=== PATIENT | female | born 1935 | race Caucasian/White ===

== ENCOUNTER 2017-02-03 06:14 | Inpatient (IN) ==
[2017-02-03] MEDS ORDERED: Lidocaine -MPF 1% 2 ML VIAL ID ONE (06:34)
[2017-02-03] MEDS ORDERED: Albuterol 2.5 MG/3 ML NEBULIZER IH ONE (06:34)
[2017-02-03] MEDS ORDERED: CeFAZolin Pre 2,000 MG/100 ML 2,000 MG/100 ML BAG IVPB ONE (06:34)
[2017-02-03] MEDS ORDERED: Albuterol 2.5 MG/3 ML NEBULIZER ONE (06:37)
[2017-02-03] MEDS ORDERED: Ringers Solution, Lactated 1,000 ML IVC SCH (06:45)
--- NOTE | 2017-02-03 07:06 | Anesthesia Evaluation PreOp ---
Date of Encounter: 02/03/17 Time of Encounter: 07:04 - Past History Planned Operation: AAA Endograft Repair Cardiac History: Hyperlipidemia Pulmonary History: Former smoker (quit 3 weeksa ago, smoked for 60+ years), COPD HUMAN RESOURCE PROFESSIONAL History: TIA Other Medical History: Denies Any Significant HX Anesthesia History: No Prior Anesthetic Complications, Past Anesthesia ( hysterectomy) Alcohol Use: none Drug use: none Medications and Allergies Loratadine [Claritin] 10 mg PO DAILY 08/12/15 [History] Acetaminophen [Tylenol] 650 mg PO Q6HR PRN #20 tablet 08/14/16 [Rx] Budesonide/Formoterol 80/4.5 [Symbicort 80/4.5] 2 puff IH BIDR 30 Days [Rx] Aspirin Enteric Coated [Aspirin EC] 325 mg PO DAILY 02/03/17 [History] Allergies hydrocodone [From Vicodin] Allergy (Verified 02/03/17 06:57) Rash - Meds/Allergy Pre-op Review Medications Reviewed: Yes Allergies Reviewed: Yes Beta Blockers on Current Med List: No Anesthesia Results - Labs Laboratory Tests 01/27/17 01/27/17 01/27/17 12:20 12:20 12:20 WBC 4.3 Hgb 13.9 Hct 44.5 Plt Count 182 PT 11.0 INR 1.0 APTT 27.1 Sodium 141 Potassium 4.2 BUN 13 Creatinine 0.82 - Imaging EKG: report reviewed (08/12/2015 SR, possible LAE, RBBB) Additional studies: 01/22/2017 Stress LVEF>70% perfusion imaging was negative for ischemia or infarct resting ECG demonstrated SR with RBBB 01/23/2016 Echo LVEF 60-65% mild LV diastolic dysfunction no significant valvular dysfunction Anesthesia Exam O2 Sat Height 1.65 m Height 1.65 m Height 1.65 m Weight 55.338 kg Weight 55.338 kg Weight 55.338 kg O2 Sat by Pulse Oximetry 93 O2 Sat by Pulse Oximetry 93 Vital Signs Temp Pulse Resp BP Pulse Ox 97.6 F 67 18 120/68 93 02/03/17 06:41 02/03/17 06:41 02/03/17 06:41 02/03/17 06:41 02/03/17 06:41 Height: 5'5'' Weight: 122 lbs NPO (# of Hours): 8 Pain Scale: 0 Pain Scale Used: Numeric (1 - 10) - HEENT Pupil (Motor): EOMI Mallampati: II Teeth: Edentulous Denture Type: Upper: Complete, Lower: Complete Oral Opening: Greater than 3 - HUMAN RESOURCE PROFESSIONAL LOC: Oriented HUMAN RESOURCE PROFESSIONAL Motor: Normal RUE, Normal LUE, Normal RLE, Normal Face, Deficit LLE HUMAN RESOURCE PROFESSIONAL Sensory: Normal: RUE, LUE, RLE, LLE, Face - Cardiac Rhythm: Regular Murmur: None - Pulmonary Breath Sounds: bilateral Clear Respiratory Effort: Symmetrical Anesthesia Assess/Plan ASA Score: 3 Modified [place] Scale for Level of Consciousness: Cooperative, oriented, and tranquil Anesthetic Plan: General Monitoring Plan: A-Line Recovery Plan: PACU
[2017-02-03] MEDS ORDERED: Heparin 1,000 UNITS/500 mL NS 500 ML ONE (07:11)
[2017-02-03] MEDS ORDERED: *HR* FentaNYL (PF) 100 MCG/2 ML VIAL ONE ×2 (07:15→08:54)
[2017-02-03] MEDS ORDERED: *HR* Propofol 200 MG/20 ML VIAL IVP ONE (07:15)
[2017-02-03] MEDS ORDERED: Lidocaine -MPF 2% 2 ML VIAL ONE ×3 (07:18→10:46)
[2017-02-03] MEDS ORDERED: *HR* Rocuronium Bromide 50 MG/5 ML VIAL ONE (07:19)
--- NOTE | 2017-02-03 07:20 | History & Physical Report ---
Date of Encounter: 02/03/17 Time of Encounter: 07:19 24 Hour HP Update - Instructions Instructions: If the History and Physical is less than 30 days old and was completed prior to A.M. admission and or procedure and has NOT been updated on calendar day of procedure please complete this update prior to performing procedure. - Update Patient reports changes in Medical Condition: No Changes in examination, assessment, or condition: No Changes in Medication: No Preop tests/diagnostics Reviewed: Yes Surgery Remains Indicated: Yes Consent for Planned Operative Procedure(s) Verified: Yes - Pre-Operative Checklist Preoperative Checklist Indicated: Yes Prophylactic Antibiotic Ordered: Yes Home Medications Include Beta Nelson: No Beta Nelson Taken Today (Day of Surgery): No Beta Nelson Taken Yesterday (Day Prior to Surgery): No Is VTE Prophylaxis Indicated?: Yes
[2017-02-03] MEDS ORDERED: Heparin 1,000 UNITS/500 mL NS 1,000 ML ONE ×2 (07:21→10:21)
[2017-02-03] MEDS ORDERED: Lidocaine -MPF 4% 5 ML AMPUL ONE (07:46)
[2017-02-03] MEDS ORDERED: Dexamethasone 4 MG/ML VIAL ONE (08:39)
[2017-02-03] MEDS ORDERED: Ondansetron 4 MG/2 ML VIAL ONE (08:39)
[2017-02-03] MEDS ORDERED: *HR* Heparin 5,000 UNIT/ML VIAL ONE ×2 (08:59→10:00)
[2017-02-03] MEDS ORDERED: *HR* Phenylephrine 10 MG/ML VIAL ONE (09:04)
--- NOTE | 2017-02-03 09:14 | Anesthesia Procedures ---
Date of Encounter: 02/03/17 Time of Encounter: 08:00 Procedures: Anesthesia - Arterial Line Consent obtained: written consent Time out performed: Yes Sedation: Fentanyl (mcg): 50 Supplemental Oxygen via Nasal Cannula (L/min): 15 (FM) Local Anesthetic: Lidocaine 1% Amount of Anesthetic used (mls): 1 Size (Gauge): 20 Length (inches): 1 3/4 Technique Used: sterile prep, guide wire technique, direct puncture technique Post-Procedure: line taped into place, dry sterile dressing placed Patient tolerated procedure: well, no complications Complications: none Site: Brachial L Vitals: see anesthetic record
[2017-02-03] MEDS ORDERED: Ondansetron 4 MG/2 ML VIAL IVP PRN ×2 (09:15→12:25)
[2017-02-03] MEDS ORDERED: *HR* HYDROmorphone (PF) 1 MG/ML SYRINGE IVP PRN (09:15)
[2017-02-03] MEDS ORDERED: *HR* Labetalol 100 MG/20 ML MDV IVP PRN (09:15)
[2017-02-03] MEDS ORDERED: Esmolol 100 MG/10 ML VIAL IVP ONE (10:17)
[2017-02-03] MEDS ORDERED: Neostigmine Methylsulfate 3 MG/3 ML SYRINGE ONE (10:33)
--- NOTE | 2017-02-03 11:33 | Operative Note ---
Date of procedure: 02/03/17 Pre-op diagnosis: AAA Post-op diagnosis: same Procedure: EVAR with Medtronic IIs sytem-4 components utilized Bilateral open femoral exposure Aortgram with non selective catheterizations Complications: none Anesthesia: CARLOSA Surgeon: Duke Dhillon Co-Surgeon: Dwaine Saunders Estimated blood loss (cc): 150 Specimen: none Condition: stable Disposition: PACU Procedure in Detail: History Eri Gibbs is an 81-year-old white female with significant COPD who was found to have a 5.3 cm abdominal aortic aneurysm. This aneurysm has been followed for many years. The aneurysm is asymptomatic but has been increasing in size. Because of her fragile health and the increasing size it was recommended that the aneurysm be addressed electively rather than emergently. The patient had preoperative pulmonary function testing and are available in the medical record. Procedure After informed consent was obtained the patient was taken to the operating room. General endotracheal anesthesia was established under arterial line pressure monitoring. The abdomen and groins and upper thighs were sterilely prepped and draped. A timeout protocol was observed. A 2 team surgical approach was used for this procedure in order to decrease operative time and anesthetic time as well as did diminish blood loss. This also facilitated complex intraoperative decision making. Incisions were made at the femoral level bilaterally. Exposure was made of the common femoral artery. Control was obtained proximally and distally. An 18- gauge needle was then used and punctured the common femoral artery in a retrograde manner. A J-wire was inserted and this was followed by an 8 Mohawk sheath and dilator. The dilator was removed and the sheath was aspirated and flushed. 5000 units heparin was administered intravenously. A pigtail catheter was then inserted over a wire on the right side. A formal aortogram was obtained to make final measurements. A Medtronic IIs device was selected that was 23 mm in diameter. The dimensions of this main body device was 23 x 14 x 103 mm. This was placed via the right side and the pigtail catheter was then moved over to the left side. The main body was then deployed in an infrarenal location with suprarenal stent fixation. This was deployed to the point that the docking limb was opened. Then from the left side the graft was cannulated with wire. Appropriate confirmation was obtained to be sure that the wire was in the appropriate position. Then an angiogram via the left groin sheath was performed. A left limb was selected that was 16 x 10 x 124 mm. This was then deployed on the left side. The devices and removed and an 1 Mohawk sheath was placed. On the right side the attention was turned back to to the main body which was then completely deployed. It should be noted that on removal of the main body catheter there was resistance. This led to a greater than average force needed to be applied and cause some deformation of the left limb. This was recognized. In order to treat this however we judged it prudent to proceed with completing the right side. Therefore an angiogram was performed through the right sheath and measurements taken. The limb on the right side was then selected at a 16 x 10 x 93 mm. This was then deployed with preservation of the iliac bifurcation as was demonstrated earlier on the left side. With attention directed back to the left side. A Reliant balloon was placed into the area to gently inflate the graft limb and to secure it in position. Then a fourth and final component was placed in order to prevent what appeared to be a Type 3 endovascular leak. This was a 16 x 10 x 82 mm stent limb that was placed into the proximal aspect of the left component that was initially placed. With this done the Reliant balloon was placed and the stent graft was gently dilated and fully expanded throughout its body and iliac limbs. A completion aortogram was then obtained by placing the pigtail catheter back into the suprarenal aorta. This demonstrated patent renal arteries bilaterally. There was an accessory left renal artery that was recognized preoperatively but that needed to be covered in order to secure the position and so there is no flow noted there. The iliac bifurcations were also patent. However there was a persistent leak at the main body bifurcation area. Additional angiograms were obtained by inflating the Reliant balloon on one side of the limb and injecting retrograde contrast through the groin. This was done bilaterally. This appeared to be a Type 4 leak at the area of the bifurcation of the main body. It was judged at this time not to proceed with conversion to an AUI device device. This will be followed by outpatient CT scanning. The patient was hemodynamically stable throughout the procedure. At this point the wires and catheters were removed. The sheaths were removed from the femoral arteries. The common femoral artery puncture sites were then closed using 6-0 Prolene suture. After appropriate backbleeding and flushing pulsatile flow was then restored into the lower extremities. Excellent Doppler signals were identified as well as strongly palpable pulses. The wounds were then irrigated and hemostasis achieved. The wounds were closed in layers using absorbable suture. Dry sterile dressings were applied to the groin level. The patient was excreted in the operating room and taken to the recovery room in hemodynamically stable condition.
--- NOTE | 2017-02-03 11:54 | Anesthesia Evaluation Post Op ---
Date of Encounter: 02/03/17 Time of Encounter: 11:53 - Vital Signs Vital Signs: Vital Signs Temperature 97.6 F 02/03/17 06:41 Pulse Rate 67 02/03/17 06:41 Respiratory Rate 18 02/03/17 06:41 Blood Pressure 120/68 02/03/17 06:41 O2 Sat by Pulse Oximetry 93 02/03/17 06:41 Temperature 97.0 F L 02/03/17 11:40 Pulse Rate 66 02/03/17 11:40 Respiratory Rate 16 02/03/17 11:40 Blood Pressure 114/51 02/03/17 11:40 O2 Sat by Pulse Oximetry 98 02/03/17 11:40 - Lungs Lungs: Clear Ascult./Percussion - Cardiovascular Regular Rate - Mental Status Mental Status: Alert & Oriented, Answers Appropriately - Pain Pain Scale: 3 Pain Scale used: Numeric (1 - 10) - Nausea Vomiting Nausea Vomiting: Not Present - Hydration Hydration: Ice chips, Del Valle catheter - Discharge PostOp Status: Transfer Patient to floor
[2017-02-03] MEDS ORDERED: Naloxone 0.4 MG/ML INJ IVP PRN (12:25)
[2017-02-03] MEDS ORDERED: Acetaminophen 325 MG TABLET PO PRN (12:25)
[2017-02-03] MEDS ORDERED: *HR* Morphine 2 MG/ML SYRINGE ONE (12:30)
[2017-02-03] MEDS: *HR* Morphine 2 MG/ML SYRINGE IVP PRN ×3 (14:29→19:52)
--- NOTE | 2017-02-03 14:59 | Operative Note ---
Date of procedure: 02/03/17 Pre-op diagnosis: Abdominal aortic aneurysm Post-op diagnosis: same Procedure: 1. Introduction of catheter into the aorta via right common femoral artery. 2. Introduction of catheter into the aorta via left common femoral artery. 3. Right femoral vessel exposure for endograft placement. 4. Left femoral vessel exposure for endograft placement. 5. Medtronic Endurant modular bifurcated aortic endograft placement with 1 docking limb including radiologic supervision and interpretation. 6. Placement of left extension limb with radiologic supervision and interpretation. 7. Placement of left extension limb with radiologic supervision and interpretation. Anesthesia: GETA Surgeon: Dwaine Saunders Co-Surgeon: Duke Dhillon Estimated blood loss (cc): 150 Specimen: None Condition: stable Disposition: PACU Procedure in Detail: Indications: The patient is an 81 year old female with a history of chronic obstructive pulmonary disease and prior tobacco abuse who was found to have a 5.3cm infrarenal abdominal aortic aneurysm. Due to the increase in size of her aneurysm and her small stature, elective endograft repair was recommended to reduce her risk of rupture and . Procedure: The patient was identified, brought to the operating room and placed in the supine position on the operating room table. After induction of general endotracheal anesthesia, the patient was cleaned and draped in normal sterile fashion. A two surgeon approach was utilized for this procedure in order to minimize anesthetic time and the risks for complications due to the patients comorbid conditions, particularly her COPD. In addition, a two surgeon approach was used for intraoperative decision making given the complexity of her aneurysm, including irregular morphonlogy, a left accessory renal artery and small vessels that may require an iliac conduit. Oblique incisions were made over both groins sharply. Hemostasis was obtained with electrocautery. Using blunt and sharp and electrocautery dissection, the bilateral common, deep and superficial femoral arteries were dissected circumferentially and surrounded with Vesseloops. At this point, the patient received heparin intravenously and then bilateral femoral punctures with large- bore needles were performed. Bentson wires were advanced into the aorta under fluoroscopic view. Given the anatomy, the main body was selected to be the right side in this patient. The needles were exchanged for bilateral sheaths and a long Pigtail catheter was advanced over the right wire into the aortic arch. The wire was removed and an angiogram was then performed via a pigtail catheter for sizing of the graft. The wire was replaced with an amplatz wire. The catheter was removed and repositioned in the suprarenal aorta via the left femoral artery. The main body was inserted over the wire with the contralateral gate being in the contalateral position. An aortogram was then performed at the level of the renal arteries. The decision was made that the left accessory renal artery would need to be sacrificed in order to obtain adequate graft seal. The graft was positioned just inferior to the main renal arteries and the first 2 segments were deployed. Again an aortogram revealed adequate infrarenal placement. The graft was then further opened to the contralateral limb exposed. A final angiogram was performed confirming adequate infrarenal placement. The suprarenal stent was deployed in the usual fashion. The contralateral limb was then selected with a wire using a guiding catheter. Intragraft placement of the wire was confirmed by placing the pigtail and spinning it freely. An oblique view of the pelvis was performed with contrast to size the left extension limb. The sheath was removed and exchanged for the appropriate limb, which was advanced under fluoroscopic view and positioned. It was then expanded. The introducer and graft sheath were exchanged for a sheath. The remaining main body was deployed and the top cap was retrieved. The introducer sheath was removed, but resistance was encountered during removal. This led to torsion on the graft. The introducer released from the graft and then passed easily out of the vessel. It was noted at this time that the left extension limb had migrated distally and did not have adequate overlap. Due to the short length of the main body, it was determined that an extension limb on the right would be necessary to obtain sufficient seal on the right. An oblique view of the right pelvis was performed and the length of the extension limb on the right was determined. The sheath was exchanged for the limb and then the limb was deployed. The introducer and graft sheath were exchanged for a sheath. Upon completion of the graft docking limb extension, a Reliant balloon was then advanced into the graft proximal and distal endpoints as well as overlap were expanded with gentle pressure. A Flush completion angiogram revealed an endoleak arising from the left extension limb. At this time, it was determined that an additional limb would be required to bridge the gap in the left limb. The sheath was removed over the wire and the limb was advanced and deployed in the usual fashion. The introducer was retrieved and the sheath was replaced. The reliant balloon was then used to expand the graft. An angiogram revealed a small, but persistent endoleak at the main body bifurcation. Multiple selective view revealed that this appeared to be a Type IV endoleak. The decision was made to complete the case without further intervention ion the Type IV leak. Tension was applied to the Vessel loops in the groin. The sheaths and wires were then removed. The bilateral arteriotomies were repaired with a running 6-0 Prolene. Antibiotic irrigation was infused into the groin. The bilateral groins incisions were closed with 2-0 Vicryl, 3-0 Vicryl and 4-0 Vicryl. Sterile dressings were applied. The patient was then extubated and taken to the recovery room in stable condition. FINDINGS: Adequate juxtarenal positioning of the endograft with no evidence of endoleak. Device Sizes: 1. Main Body: 24 x 14 x 103mm 2. Left limb: 16 x 10 x 124mm 3. Right limb 16 x 10 x 93mm 4. Left extension limb 16 x 10 x 82mm
[2017-02-03] MEDS: ceFAZolin 2,000 MG in D5% in Water 100 ML IVPB SCH ×2 (17:59→23:21)
[2017-02-03] MEDS: Budesonide/Formoterol 80/4.5 MDI IH SCH (20:30)
[2017-02-04] MEDS: *HR* Morphine 2 MG/ML SYRINGE IVP PRN ×2 (03:52→08:23)
[2017-02-04 05:26] LABS: Basophils % 0.1 %; Eosinophils % 0.1 %; Hematocrit 35.4 % (35.3-44.9); Hemoglobin 11.1 g/dL (11.5-15.4); Immature Granulocytes % 0.4 % (0-4); Lymphocytes # 0.9 K/mcL (0.6-4.6); Lymphocytes % 10.5 %; Mean Corpuscular HGB Conc 31.4 g/dL (31.6-35.5); Mean Corpuscular Hemoglobin 30.1 pg (28.0-33.3); Mean Corpuscular Volume 95.9 fL (83.0-100.0); Mean Platelet Volume 10.7 fL (9.4-12.4); Monocytes # 0.8 K/mcL (0.0-1.3); Monocytes % 9.7 %; Neutrophils # 6.6 K/mcL (1.6-8.9); Platelet Count 111 K/mcL (140-400); Red Blood Count 3.69 M/mcL (3.82-4.97); Red Cell Distribution Width 13.6 % (11.5-14.5); Segmented Neutrophils % 79.2 %
[2017-02-04 05:52] LABS: BUN/Creatinine Ratio 15 (6-26); Blood Urea Nitrogen 13 mg/dL (7-20); Calcium 8.3 mg/dL (8.6-10.8); Carbon Dioxide 30 mEq/L (19-29); Chloride 102 mEq/L (98-109); Glucose 125 mg/dL (70-99); Osmolality,Calculated 286 (280-300); Potassium 4.3 mEq/L (3.5-4.5); Sodium 137 mEq/L (136-145); eGFR For African Americans > 60 (> 60); eGFR For Non-African Americans > 60 (> 60)
[2017-02-04] MEDS: Budesonide/Formoterol 80/4.5 MDI IH SCH ×2 (07:59→20:59)
[2017-02-04] MEDS: Aspirin Enteric Coated 325 MG Tablet PO SCH (07:59)
[2017-02-04] MEDS: ceFAZolin 2,000 MG in D5% in Water 100 ML IVPB SCH (07:59)
[2017-02-04] MEDS: Loratadine 10 MG TABLET PO SCH (07:59)
[2017-02-04] MEDS: *HR* OxyCODONE/APAP 5/325 TABLET PO PRN ×2 (07:59→20:46)
[2017-02-04] MEDS ORDERED: Bisacodyl 10 MG RECTAL SUPPOSITORY RC SCH ×2 (09:00→21:00)
--- NOTE | 2017-02-04 12:20 | Vascular/[facility] Progress Note ---
Date of Encounter: 02/04/17 Time of Encounter: 12:18 - Assessment and plan (1) AAA (abdominal aortic aneurysm) Current Visit: Yes Status: Chronic Patient is postoperative day #1 following endovascular abdominal aortic aneurysm repair. The abdominal pain the patient is expressing appears unrelated to the endovascular surgery. The patient has a benign abdominal exam. Pending patient's mobility and ability to tolerate oral intake will determine whether she may be discharged later today versus tomorrow. Her overall chronic and fragile ill health suggests that she will require an additional day of hospitalization and nursing care. Qualifiers: Presence of rupture: without rupture Qualified Code(s): I71.4 - Abdominal aortic aneurysm, without rupture (2) COPD (chronic obstructive pulmonary disease) Current Visit: Yes Status: Chronic The patient has chronic COPD secondary to care home tobacco abuse. Overall status is stable. She has no dramatic wheezing. O2 saturation on oxygen supplementation is in the high 90% range. Qualifiers: COPD type: unspecified COPD Qualified Code(s): J44.9 - Chronic obstructive pulmonary disease, unspecified (3) Tobacco abuse Current Visit: No Status: Chronic Chronic tobacco abuse history. - Subjective Interval history: Patient complains of abdominal pain which is chronic. This abdominal pain has been present for many years and is in the lower abdomen. This had preexisted prior to surgery. Patient also complains of nausea and had an episode of vomiting earlier this morning. Patient has a very poor appetite. Vital Signs, Last 4 Hours Temp Pulse Resp BP Pulse Ox 02/04/17 12:00 82 02/04/17 11:30 98.0 F 81 18 115/54 100 02/04/17 10:08 81 17 113/48 94 02/04/17 10:07 96 - Physical Examination General: Present: Conversant HEENT: Present: Atraumatic Neck: Absent: JVD Cardiac: Present: Reg Rate and Rhythm Lungs: Present: Decreased breath sounds Neuro: Present: Alert and responsive, No focal deficits noted, Cranial nerves grossly intact Vascular: Present: Surgical incisions (Dressings on the right groin incisions are clean and dry. There is no signs of hematoma.) Abdomen: Present: Soft, Non-tender, Other (Patient has active bowel sounds.) - VTE Documentation of Mechanical Device: Intermittent pneumatic compression device Results 02/04/17 05:02 02/04/17 05:02 Lab Results, Last 24 hours 02/04/17 02/04/17 05:02 05:02 WBC 8.3 Hgb 11.1 L Hct 35.4 Plt Count 111 L Sodium 137 Potassium 4.3 Chloride 102 Carbon Dioxide 30 H BUN 13 Creatinine 0.86 Glucose 125 H Calcium 8.3 L Consult Discharge Plan - Plan Referrals: NO,PCP [Non-Partnered Physician] - Shakira Costello MD [Primary Care Provider] - 02/06/17 1:40 pm Duke Dhillon MD [Partnered Physician] - 03/04/17 1:30 pm
[2017-02-04] MEDS ORDERED: Ringers Solution, Lactated 1,000 ML ONE (13:51)
[2017-02-04] MEDS: Ringers Solution, Lactated 1,000 ML IVC SCH (14:00)
[2017-02-05] MEDS: Budesonide/Formoterol 80/4.5 MDI IH SCH (08:16)
[2017-02-05] MEDS: Loratadine 10 MG TABLET PO SCH (08:58)
[2017-02-05] MEDS: Ringers Solution, Lactated 1,000 ML IVC SCH (08:58)
[2017-02-05] MEDS: Aspirin Enteric Coated 325 MG Tablet PO SCH (08:58)
[2017-02-05] MEDS: *HR* OxyCODONE/APAP 5/325 TABLET PO PRN (08:58)
--- NOTE | 2017-02-05 09:33 | Vascular/[facility] Progress Note ---
Date of Encounter: 02/05/17 Time of Encounter: 08:15 - Assessment and plan (1) AAA (abdominal aortic aneurysm) Current Visit: Yes Status: Chronic Patient is postoperative day #2 following endovascular abdominal aortic aneurysm repair The patient is feeling better from yesterday. She does not have nausea. She still has diminished appetite. We'll encourage patient to increase oral intake today and to become more active. The patient requires a walker for ambulatory assistance and her overall exercise tolerance is very low. Will request evaluation by rehabilitative services. I anticipate discharge to home later today with home health needs as indicated. 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 Overall status is stable. She has no dramatic wheezing. O2 saturation on oxygen supplementation is in the high 90% range. Qualifiers: COPD type: unspecified COPD Qualified Code(s): J44.9 - Chronic obstructive pulmonary disease, unspecified (3) Tobacco abuse Current Visit: No Status: Chronic Chronic tobacco abuse history. - Subjective Interval history: The patient is feeling better. She was able to sleep last night. She has less abdominal pain. The patient was up in the chair last night. Vital Signs, Last 4 Hours Temp Pulse Resp BP Pulse Ox 02/05/17 09:01 92 02/05/17 09:00 102 16 92 02/05/17 08:13 99.2 F 94 14 107/56 92 - Physical Examination General: Present: Conversant, No Apparent Distress Cardiac: Present: Reg Rate and Rhythm Lungs: Present: Decreased breath sounds Neuro: Present: Alert and responsive, No focal deficits noted Vascular: Present: Normal capillary refill. Absent: Cyanosis, Edema Abdomen: Present: Soft, Non-tender, Other (Active bowel sounds) Skin: Present: No rashes noted on visualized skin - VTE Documentation of Mechanical Device: Intermittent pneumatic compression device Results 02/04/17 05:02 02/04/17 05:02 Consult Discharge Plan - Plan Referrals: NO,PCP [Non-Partnered Physician] - Shakira Costello MD [Primary Care Provider] - 02/06/17 1:40 pm Duke Dhillon MD [Partnered Physician] - 03/04/17 1:30 pm
--- NOTE | 2017-02-05 11:16 | Physician Discharge Referral ---
Home Health/Hosp Referral Info Transfer to: Home Health Attending Provider: Dr Dhillon Provider in Charge Post Discharge: PCP - Diagnosis (1) AAA (abdominal aortic aneurysm) Priority: Primary Status: Chronic (2) COPD (chronic obstructive pulmonary disease) Priority: Secondary Status: Chronic (3) Tobacco abuse Priority: Secondary Status: Chronic - Respiratory Orders Oxygen / L per min Smoking Cessation: Smoking cessation has been advised. For more information, call the [place] Tobacco Quit Line at 7-358-OGWB-NOW. - Diet/Nutrition Diet/Nutrition Orders: Cardiac - Activity Activity Orders: Walker - Services Needed Following services are medically necessary services: Nursing, Home Health Aide, Physical Therapy, Occupational Therapy Other Treatments: O2 at 2 L per nasal cannula 27/04. - Transfer Medications Home Medications: Loratadine [Claritin] 10 mg PO DAILY 08/12/15 [History] Acetaminophen [Tylenol] 650 mg PO Q6HR PRN #20 tablet 08/14/16 [Rx] Budesonide/Formoterol 80/4.5 [Symbicort 80/4.5] 2 puff IH BIDR 30 Days [Rx] Aspirin Enteric Coated [Aspirin EC] 325 mg PO DAILY 02/03/17 [History] Allergies/Adverse Reactions: Allergies hydrocodone [From Vicodin] Allergy (Verified 02/03/17 06:57) Rash Certification: Further, I certify that my clinical findings support that this patient is homebound (i.e. absences from home require considerable and taxing effort and are for medical reasons or baptism services or infrequently or short duration when for other reasons) because: Homebound Reason: Patient requires assistance of a person or device to safely leave home, Post-surgery restriction and or conditions limit ability to leave home, Severity of cardiac or pulmonary status limits activity tolerance Attestation: My signature below is to certify that this patient is under my care and that I, or nurse practitioner, or a physician's senior sales assistant working with me, has a face-to -face encounter with this patient.
--- NOTE | 2017-02-05 11:20 | Discharge Summary ---
Date of Encounter: 02/05/17 Time of Encounter: 08:15 - Discharge Diagnosis (1) AAA (abdominal aortic aneurysm) Priority: Primary Status: Chronic Comments: Patient has expanding 5.3 cm abdominal aortic aneurysm. Qualifiers: Presence of rupture: without rupture Qualified Code(s): I71.4 - Abdominal aortic aneurysm, without rupture (2) COPD (chronic obstructive pulmonary disease) Priority: Secondary Status: Chronic Comments: Patient has severe lifestyle limiting COPD. During hospitalization patient is demonstrated multiple episodes of hypoxemia. Therefore she will require 2 L per nasal cannula at home. Qualifiers: COPD type: unspecified COPD Qualified Code(s): J44.9 - Chronic obstructive pulmonary disease, unspecified (3) Tobacco abuse Priority: Secondary Status: Chronic Comments: Patient has been advised to avoid all primary and secondary tobacco exposure. - Discharge Medications Home Medications: Loratadine [Claritin] 10 mg PO DAILY 08/12/15 [History] Acetaminophen [Tylenol] 650 mg PO Q6HR PRN #20 tablet 08/14/16 [Rx] Budesonide/Formoterol 80/4.5 [Symbicort 80/4.5] 2 puff IH BIDR 30 Days [Rx] Aspirin Enteric Coated [Aspirin EC] 325 mg PO DAILY 02/03/17 [History] Allergies/Adverse Reactions: Allergies hydrocodone [From Vicodin] Allergy (Verified 02/03/17 06:57) Rash Date of admission: 02/03/17 12:08 Primary care physician: Shakira Costello, Consults: 02/03/17 13:38 Consult to [employer] [CONS] Routine Reason for SW Consult: services prior to admission 02/04/17 16:59 Consult to Physical Therapy [CONS] Routine Comment: Evaluate, develop and implement POC Reason for Consult: s/p EVAR-Severe COPD-Assess for ADL 02/04/17 17:00 Consult to Occupational Therapy [CONS] Routine Comment: Evaluate, develop and implement POC Reason for Consult: s/p EVAR-severe COPD- assess for ADL's-anticipate d/c tomorrow 02/04/17 17:01 Consult to [employer] [CONS] Routine Reason for SW Consult: s/p EVAR-severe COPD-assess for expanded home health assistance anticipate d/c tomorrow Procedure(s) Performed: Endovascular repair of abdominal aortic aneurysm Discharging clinician: Duke Dhillon Anticipated date of discharge: 02/05/17 - Patient Status Disposition: Home Health Service Condition: Fair Functional capacity at discharge: uses cane/walker Overall status at discharge: patient is progressing back to baseline - Discharge Instructions Follow Up With: NO,PCP [Non-Partnered Physician] - Shakira Costello MD [Primary Care Provider] - 02/06/17 1:40 pm Duke Dhillon MD [Partnered Physician] - 03/04/17 1:30 pm Additional Instructions: Keep groin surgical incisions clean and dry. Do not get the surgical incisions wet until 5 days following surgery. Patient may ambulate when necessary however patient is to use a walker for ambulation. Patient will follow-up with Dr. Dhillon in approximately 4 weeks. Patient will need a follow-up CT scan as an outpatient Patient is to continue her usual home medications. She will be prescribed oxygen 2 L per nasal cannula because of persistent hypoxemia. - Diet and Activity Activity: ambulate only with your walker, as per physical therapy, wear oxygen at all times Diet: low fat, low cholesterol - Hospital Course Hospital course: Ms. Gibbs is a 81 year old female With severe COPD and an expanding abdominal aortic aneurysm. Because of her very frail nature was recommended that she undergo elective aneurysm repair. The patient came to the hospital and 2 days ago underwent bilateral open femoral artery exposures and placement of endovascular stent graft. Postoperatively the patient had abdominal pain which is a chronic process for her. This limited her walking and diet progression yesterday. Therefore she required an additional day in the hospital to facilitate further rehabilitative services and for intravenous fluid. The patient was improved on the morning of postoperative day #2. She was felt fit for discharge. It was noted that she has persistent hypoxemia which is not unexpected in light of her long and Again a history of COPD. Therefore the patient will require 2 L per nasal cannula upon discharge to home. She will also need home health services including physical therapy and occupational therapy and home health needs and visiting RN. Time spent discussing smoking cessation with patient: 3 to 10 minutes - Time Spent with Patient Total time spent providing and/or coordinating discharge services: Exam Vital Signs, Last 4 Hours Temp Pulse Resp BP Pulse Ox 02/05/17 09:36 92 02/05/17 09:01 92 02/05/17 09:00 102 16 92 05/04/17 08:30 93 02/05/17 08:13 99.2 F 94 14 107/56 92 General: Present: Conversant, No Apparent Distress Cardiac: Present: Reg Rate and Rhythm, Normal S1 and S2 Lungs: Present: Decreased breath sounds Neuro: Present: Alert and responsive, No focal deficits noted Abdomen: Present: Soft, Other (Active bowel sounds) Vascular: Present: Normal capillary refill. Absent: Cyanosis, Edema Skin: Present: No rashes noted on visualized skin - VTE Documentation of Mechanical Device: Intermittent pneumatic compression device
[2017-02-05 11:26] VITALS: BP 102/47
== END 2017-02-05 14:12 | disposition home health service (06) | DRG 269 ==
LOC: SAMDAY 06:14 → 2NNU 12:08
PROVIDERS: ADMIT Surgery Vascular Surgery; ATTEND Surgery Vascular Surgery

== ENCOUNTER 2017-08-12 09:46 | Inpatient (IN) ==
[2017-08-12 10:20] LABS: Bilirubin,Urine Negative (Negative); Blood,Urine Negative (Negative); Clarity,Urine Turbid (Clear); Color,Urine Yellow (Yellow); Glucose,Urine (UA) Normal (Normal); Ketones,Urine Negative (Negative); Leukocyte Esterase,Urine Small (Negative); Nitrite,Urine Negative (Negative); PH,Urine 7.5 pH Units (5.0-8.0); Protein,Urine 30 mg/dL (Neg-Trace); Urobilinogen,Urine Normal (Normal)
[2017-08-12 10:22] LABS: Bacteria,Urine None Seen per hpf (None-Few); Hyaline Casts,Urine None Seen per lpf (None-Few); Squamous Epithelial Cell,Urine Many per lpf (None-Few)
[2017-08-12] MEDS ORDERED: *HR* Morphine 2 MG/ML SYRINGE IVP ONE (10:31)
[2017-08-12] MEDS ORDERED: Ondansetron 4 MG/2 ML VIAL IVP ONE (10:31)
[2017-08-12] MEDS ORDERED: 0.9 % Sodium Chloride 1,000 ML IVC ONE (10:31)
--- NOTE | 2017-08-12 11:04 | Emergency Department Note ---
Disposition Clinical Impression: Leg edema, left Abdominal pain Qualifiers: Abdominal location: right lower quadrant Qualified Code(s): R10.31 - Right lower quadrant pain Sacral decubitus ulcer Qualifiers: Pressure ulcer stage: unspecified pressure ulcer stage Qualified Code(s): L89.159 - Pressure ulcer of sacral region, unspecified stage Disposition: Still a Patient Condition: Undetermined Referrals: Shakira Costello MD [Primary Care Provider] - Abdominal Pain HPI - General Chief Complaint: ED Abdominal Pain Stated Complaint: Abd/pelvic pain Time Seen by Provider: 08/12/17 10:04 Source: patient, family Mode of arrival: private vehicle Limitations: no limitations Nursing Notes Reviewed: Yes Vital Signs Reviewed: Yes - History of Present Illness Pt Subjective Complaint: abdominal pain, other (Sent here from Dr. Dhillon's office for further eval of pain and b/c CT from Thursday is abnormal.) Onset (ago): month(s) (since April) Consistency: Worsening Location: RLQ Pain Severity: severe Pain Scale: 10 Quality: aching, sharp Radiation: none Migration to: no migration Improves with: nothing Worsens with: nothing Context: history of similar episodes, other (AAA repair in February by Dr. Dhillon. Pain began in April. Wo for past 2 weeks.) Associated symptoms: Reports: constipation. Denies: nausea, vomiting, diarrhea , fever, chills, dysuria, hematemesis, hematochezia, melena, hematuria, anorexia , syncope Treatments prior to arrival: OTC medications, other (laxative and enema several times in the past month) - Related Data Home Medications Medication Instructions Recorded Confirmed Loratadine [Claritin] 10 mg PO DAILY 08/12/15 02/03/17 Aspirin Enteric Coated [Aspirin EC] 325 mg PO DAILY 02/03/17 02/03/17 Previous Rx's Medication Instructions Recorded Acetaminophen [Tylenol] 650 mg PO Q6HR PRN #20 tablet 08/14/16 Budesonide/Formoterol 80/4.5 2 puff IH BIDR 30 Days inhaler 08/14/16 [Symbicort 80/4.5] Allergies Allergy/AdvReac Type Severity Reaction Status Date / Time codeine Allergy See Verified 08/12/17 09:56 Comments Fish Containing Products Allergy Anaphylaxis Verified 08/12/17 09:56 fish derived Allergy Anaphylaxis Verified 08/12/17 09:56 fish oil Allergy Anaphylaxis Verified 08/12/17 09:56 hydrocodone [From Vicodin] Allergy Rash Verified 08/12/17 09:56 shellfish derived Allergy Anaphylaxis Verified 08/12/17 09:56 All systems ED: reviewed and negative except as stated. Review of Systems: As Per HPI Constitutional: Denies: fever, chills, weakness Cardiovascular: Reports: dyspnea on exertion (chronic), edema (swelling in left leg for past week, and now a little swelling in right foot). Denies: chest pain , palpitations, orthopnea, syncope Respiratory: Reports: dyspnea (" no worse than usual"). Denies: wheezes, hemoptysis, stridor Gastrointestinal: Reports: as per HPI, abdominal pain. Denies: nausea, vomiting , diarrhea, constipation Genitourinary: Denies: urgency, dysuria, frequency Musculoskeletal: Denies: back pain, neck pain, joint swelling Integumentary: Reports: other ("ulcer on bottom") Neurological: Denies: headache, weakness, numbness, paresthesias Hematological/Lymphatic: Denies: easy bleeding, easy bruising Abdominal Pain PMH - Past Medical History Medical history: Reports: aortic aneurysm (Abdominal, repaired in February), COPD, CVA Female Surgical History: Reports: hip replacement, hysterectomy, orthopedic, other, other Psychiatric history: Reports: no psych history - Social History Smoking status: Former smoker (Quit three weeks ago) Alcohol use: Reports: none Drug use: Reports: none Physical Exam - General Limitations: no limitations General appearance: alert, in no apparent distress - Head Head exam: atraumatic, normocephalic, normal inspection - Eye Eye exam: Present: normal appearance, PERRL. Absent: scleral icterus, conjunctival injection, periorbital swelling - ENT ENT exam: mucous membranes dry - Neck Neck exam: Present: normal inspection, full ROM, trachea midline. Absent: tenderness, meningismus - Chest Chest inspection: Present: normal inspection - Respiratory Respiratory exam: Present: wheezes (Mild end expiratory upper). Absent: respiratory distress, stridor, accessory muscle use, prolonged expiratory phase - Cardiovascular Cardiovascular exam: Present: regular rate, normal rhythm - Abdominal Exam Abdominal exam: Present: soft, tenderness, distention (Mild, lower), diminished bowel sounds, tenderness at [place]'s Point. Absent: guarding, rebound, rigidity, organomegaly, trauma, ascites, mass, pulsatile mass Abdominal tenderness: Present: RLQ, epigastrium, moderate - Extremities Exam Extremities exam: Present: normal capillary refill, pedal edema (Moderate to severe in the left, mild in the right), calf tenderness (Mild, left). Absent: joint swelling - Neurological Exam Neurological exam: Present: alert, oriented X3, CN II-XII intact - Psychiatric Psychiatric exam: Present: normal affect, normal mood - Skin Skin exam: Present: warm, dry Course Course Narrative: Patient was brought in by family for evaluation of increasing right lower quadrant abdominal pain. She has had this pain for months. She has had worsening constipation over the past two weeks such that she has required an enema every other day. She denies nausea, vomiting, fever or chills. She had an abdominal aortic aneurysm repaired this past February. She was scheduled for a follow-up CAT scan and subsequent visit with Dr. Dhillon. She had a CT done on Thursday and saw him in the office today. She states that after her visit she was told to come to the ER for further evaluation of her abnormal CAT scan and right lower quadrant abdominal pain. On exam, she is afebrile, nontoxic appearing, conversant and cooperative with the exam. She has tenderness in the right lower quadrant and in the epigastrium. She also has notable edema of the left lower leg and pitting edema in the left foot. She has slight edema in the right foot. She states that this swelling in the left leg is new 1 week. Labs , EKG, Doppler ultrasound and pain meds have been ordered. The case has been discussed with Dr. Gresham. He will take over care of this patient. Vital Signs Temperature 97.5 F L 08/12/17 09:52 Pulse Rate 86 08/12/17 09:52 Respiratory Rate 20 08/12/17 09:52 Blood Pressure 155/87 08/12/17 09:52 O2 Sat by Pulse Oximetry 95 08/12/17 09:52 Temperature 97.5 F L 08/12/17 09:52 Pulse Rate 86 08/12/17 09:52 Respiratory Rate 20 08/12/17 09:52 Blood Pressure 155/87 08/12/17 09:52 O2 Sat by Pulse Oximetry 95 08/12/17 09:52 Oxygen Delivery Oxygen Delivery Room Air Abdominal Pain - Lab Data Lab Results 08/12/17 Range/Units 10:10 Urine Color Yellow (Yellow) Urine Clarity Turbid A (Clear) Urine pH 7.5 (5.0-8.0) pH Units Ur Specific [place] 1.020 (1.010-1.025) Urine Protein 30 H (Neg-Trace) mg/dL Urine Glucose (UA) Normal (Normal) mg/dL Urine Ketones Negative (Negative) mg/dL Urine Blood Negative (Negative) Urine Nitrite Negative (Negative) Urine Bilirubin Negative (Negative) Urine Urobilinogen Normal (Normal) mg/dL Ur Leukocyte Esterase Small H (Negative) Urine Microscopic RBC 5-15 H (0-3) per hpf Urine Microscopic WBC 5-15 H (0-3) per hpf Ur Squamous Epith Cells Many H (None-Few) per lpf Urine Bacteria None Seen (None-Few) per hpf Hyaline Casts None Seen (None-Few) per lpf
[2017-08-12 11:06] LABS: Basophils % 0.1 %; Eosinophils % 0.1 %; Hematocrit 40.7 % (35.3-44.9); Hemoglobin 12.8 g/dL (11.5-15.4); Immature Granulocytes % 0.8 % (0-4); Lymphocytes # 0.8 K/mcL (0.6-4.6); Lymphocytes % 8.8 %; Mean Corpuscular HGB Conc 31.4 g/dL (31.6-35.5); Mean Corpuscular Hemoglobin 30.5 pg (28.0-33.3); Mean Corpuscular Volume 97.1 fL (83.0-100.0); Mean Platelet Volume 10.4 fL (9.4-12.4); Monocytes # 0.6 K/mcL (0.0-1.3); Monocytes % 6.8 %; Neutrophils # 7.3 K/mcL (1.6-8.9); Platelet Count 185 K/mcL (140-400); Red Blood Count 4.19 M/mcL (3.82-4.97); Red Cell Distribution Width 16.3 % (11.5-14.5); Segmented Neutrophils % 83.4 %
[2017-08-12 11:09] LABS: Prothrombin Time 11.1 Seconds (9.4-12.1)
[2017-08-12 11:12] LABS: Activated Partial Thrombo Time 23.9 Seconds (26.0-36.0)
[2017-08-12 11:18] LABS: Alanine Aminotransferase 21 Units/L (0-55); Albumin 2.8 g/dL (3.5-5.0); Albumin/Globulin Ratio 0.8 (1.1-2.2); Alkaline Phosphatase 108 Units/L (38-126); Aspartate Amino Transferase 21 Units/L (5-34); BUN/Creatinine Ratio 25 (6-26); Bilirubin,Direct 0.2 mg/dL (0.0-0.5); Bilirubin,Indirect 0.2 mg/dL (0.0-1.2); Bilirubin,Total 0.4 mg/dL (0.2-1.2); Blood Urea Nitrogen 19 mg/dL (7-20); Calcium 9.1 mg/dL (8.6-10.8); Carbon Dioxide 29 mEq/L (19-29); Chloride 104 mEq/L (98-109); Globulin 3.3 g/dL (2.4-3.5); Glucose 95 mg/dL (70-99); Lipase 492 Units/L (8-78); Osmolality,Calculated 294 (280-300); Potassium 3.8 mEq/L (3.5-4.5); Sodium 141 mEq/L (136-145); Total Protein 6.1 g/dL (6.0-8.3); eGFR For African Americans > 60 (> 60); eGFR For Non-African Americans > 60 (> 60)
[2017-08-12] MEDS ORDERED: *HR* HYDROmorphone (PF) 1 MG/ML SYRINGE IVP ONE (11:58)
--- NOTE | 2017-08-12 13:10 | Emergency Department Note ---
Disposition Clinical Impression: Leg edema, left, Cancer Abdominal pain Qualifiers: Abdominal location: right lower quadrant Qualified Code(s): R10.31 - Right lower quadrant pain Sacral decubitus ulcer Qualifiers: Pressure ulcer stage: unspecified pressure ulcer stage Qualified Code(s): L89.159 - Pressure ulcer of sacral region, unspecified stage Pancreatitis Qualifiers: Chronicity: acute Pancreatitis type: unspecified pancreatitis type Acute pancreatitis complication: unspecified Qualified Code(s): K85.90 - Acute pancreatitis without necrosis or infection, unspecified Disposition: Admitted As Inpatient Condition: Fair Referrals: Shakira Costello MD [Primary Care Provider] - Forms: ED Satisfaction Letter, Work/School Release Time of Disposition: 13:15 General Adult HPI - General Chief complaint: ED Abdominal Pain Stated complaint: Abd/pelvic pain Time Seen by Provider: 08/12/17 10:04 Source: patient, family Mode of arrival: ambulatory Limitations: no limitations Nursing Notes Reviewed: Yes Vital Signs Reviewed: Yes - History of Present Illness HPI Narrative: Patient seen in conjunction with the mid-level provider. Patient presents emergency room with generalized pain and complaining in the abdominal area. She is seen by her vascular surgeon within the last week and had CT angiography of the abdomen. There were concerning findings in the recommended her coming to the emergency room Onset (ago): day(s) Location: abdomen Radiation: non-radiation Pain Severity: severe Pain Scale: 10 Quality: stabbing, aching Consistency: constant Improves with: nothing Worsens with: nothing Associated symptoms: Reports: denies other symptoms Treatments Prior to Arrival: none - Related Data Home Medications Medication Instructions Recorded Confirmed Loratadine [Claritin] 10 mg PO DAILY 08/12/15 02/03/17 Tramadol HCl [Ultram] 50 mg PO DAILY PRN 08/12/17 08/12/17 Previous Rx's Medication Instructions Recorded Acetaminophen [Tylenol] 650 mg PO Q6HR PRN #20 tablet 08/14/16 Allergies Allergy/AdvReac Type Severity Reaction Status Date / Time codeine Allergy See Verified 08/12/17 09:56 Comments Fish Containing Products Allergy Anaphylaxis Verified 08/12/17 09:56 fish derived Allergy Anaphylaxis Verified 08/12/17 09:56 fish oil Allergy Anaphylaxis Verified 08/12/17 09:56 hydrocodone [From Vicodin] Allergy Rash Verified 08/12/17 09:56 shellfish derived Allergy Anaphylaxis Verified 08/12/17 09:56 All systems ED: reviewed and negative except as stated. Review of Systems: As Per HPI Constitutional: Denies: fever, chills, weakness Cardiovascular: Reports: dyspnea on exertion (chronic), edema (swelling in left leg for past week, and now a little swelling in right foot). Denies: chest pain , palpitations, orthopnea, syncope Respiratory: Reports: dyspnea (" no worse than usual"). Denies: wheezes, hemoptysis, stridor Gastrointestinal: Reports: as per HPI, abdominal pain. Denies: nausea, vomiting , diarrhea, constipation Genitourinary: Denies: urgency, dysuria, frequency Musculoskeletal: Denies: back pain, neck pain, joint swelling Integumentary: Reports: other ("ulcer on bottom") Neurological: Denies: headache, weakness, numbness, paresthesias Hematological/Lymphatic: Denies: easy bleeding, easy bruising Past Medical History - Past Medical History Attestation: Yes The following information was validated with the patient. Source: patient Medical history: Reports: aortic aneurysm (Abdominal, repaired in February), COPD, CVA Surgical history: Reports: orthopedic, other Psychiatric history: Reports: no psych history - Social History Smoking Status: Former smoker (Quit three weeks ago) Smokeless Tobacco Status: No Alcohol use: Reports: none Drug use: Reports: none Physical Exam - General Limitations: no limitations General appearance: alert, in no apparent distress - ENT ENT exam: normal exam, normal oropharynx, mucous membranes moist - Neck Neck exam: Present: normal inspection, full ROM, trachea midline - Chest Chest inspection: Present: normal inspection, symmetric chest wall rise - Respiratory Respiratory exam: Present: normal lung sounds bilaterally - Cardiovascular Cardiovascular exam: Present: regular rate, normal rhythm, normal heart sounds - Abdominal Exam Abdominal exam: Present: soft, tenderness, normal bowel sounds. Absent: distention, guarding, rebound, rigidity, Fritz's sign, Rovsing's sign, tenderness at McBurney's Point - Extremities Exam Extremities exam: Present: normal inspection, full ROM, normal capillary refill. Absent: tenderness - Back Exam Back exam: Present: normal inspection, full ROM. Absent: tenderness - Neurological Exam Neurological exam: Present: alert, oriented X3, CN II-XII intact, normal gait - Skin Skin exam: Present: warm, dry, intact, normal color Course Course Narrative: Patient seen and examined the time of arrival to my shift. Patient was signed out to me by the mid-level provider Lubna Kim. 82-year-old female sent to the emergency room today surgeon after having an Endo vascular procedure to her abdominal aorta. She had CT angiography findings that were concerning as well as abdominal pain. They recommended coming to our emergency room for evaluation. Currently patient is describing abdominal pain only. Denies fevers chills nausea vomiting diarrhea. Denies chest pain shortness of breath headache or vision change. Patient is otherwise resting in the bed at this time. Patient will have laboratory workup including lactic acid blood cultures CBC and chemistry. Patient was CT of the chest and abdomen secondary to the CT findings that were done several days ago that were concerning for metastatic disease and lesions in the abdomen and chest. Patient will most likely need initiation once workup is completed. We will see and treat pain symptoms here. Vital signs reviewed and otherwise unremarkable. Fluid hydration and be given as needed. Patient is potentially critically ill. - Reevaluation(s) Reevaluation #1: CT imaging is still pending. Patient's lipase is significantly elevated at 500. Could be part of her presentation with acute pancreatitis secondary to the intra-abdominal pathology. We will continue to monitor the pain until symptoms change. Time: 13:13 Reevaluation #2: Patient Molly have progressive metastatic disease in the lungs chest and abdomen. Also concerning for pancreatitis based on elevated lipase. Fluid hydration and nothing by mouth status as well as pain medication to be given. Patient was discussed with the hospitalist Dr. ramirez. Reviewed the patient's presentation symptoms medical history as well as intervention. No other concerns or issues this time. Patient will be admitted for pain control nothing by mouth status and consultation with oncology. Time: 13:56 Vital Signs Temperature 97.5 F L 08/12/17 09:52 Pulse Rate 86 08/12/17 09:52 Respiratory Rate 20 08/12/17 09:52 Blood Pressure 155/87 08/12/17 09:52 O2 Sat by Pulse Oximetry 95 08/12/17 09:52 Temperature 97.5 F L 08/12/17 09:52 Pulse Rate 98 08/12/17 13:08 Respiratory Rate 16 08/12/17 13:08 Blood Pressure 147/82 08/12/17 13:08 O2 Sat by Pulse Oximetry 97 08/12/17 13:08 Oxygen Delivery Oxygen Delivery Room Air Medical Decision Making - MDM Narrative Medical decision making narrative: Abdominal pain, pancreatitis, cancer, - Medical Records Medical records reviewed: Yes I reviewed the patient's medical records. - Lab Data Lab results reviewed: Yes I reviewed the patient's lab results. Result diagrams: 08/12/17 10:57 08/12/17 10:57 Lab Results 08/12/17 08/12/17 08/12/17 Range/Units 10:10 10:57 10:57 WBC 8.8 (4.3-11.1) K/mcL RBC 4.19 (3.82-4.97) M/mcL Hgb 12.8 (11.5-15.4) g/dL Hct 40.7 (35.3-44.9) % MCV 97.1 (83.0-100.0) fL MCH 30.5 (28.0-33.3) pg MCHC 31.4 L (31.6-35.5) g/dL RDW 16.3 H (11.5-14.5) % Plt Count 185 (140-400) K/mcL MPV 10.4 (9.4-12.4) fL Immature Gran % 0.8 (0-4) % Seg Neutrophils % 83.4 % Lymphocytes % 8.8 % Monocytes % 6.8 % Eosinophils % 0.1 % Basophils % 0.1 % Neutrophils # 7.3 (1.6-8.9) K/mcL Lymphocytes # 0.8 (0.6-4.6) K/mcL Monocytes # 0.6 (0.0-1.3) K/mcL Eosinophils # 0.0 (0.0-0.6) K/mcL Basophils # 0.0 (0.0-0.2) K/mcL PT 11.1 (9.4-12.1) Seconds INR 1.0 APTT 23.9 L (26.0-36.0) Seconds Sodium (136-145) mEq/L Potassium (3.5-4.5) mEq/L Chloride (98-109) mEq/L Carbon Dioxide (19-29) mEq/L BUN (7-20) mg/dL Creatinine (0.57-1.11) mg/dL Est GFR ( Amer) (> 60) Est GFR (Non-Af Amer) (> 60) BUN/Creatinine Ratio (6-26) Glucose (70-99) mg/dL Calculated Osmolality (280-300) Lactic Acid (0.5-2.2) mmol/L Calcium (8.6-10.8) mg/dL Total Bilirubin (0.2-1.2) mg/dL Direct Bilirubin (0.0-0.5) mg/dL Indirect Bilirubin (0.0-1.2) mg/dL AST (5-34) Units/L ALT (0-55) Units/L Alkaline Phosphatase (38-126) Units/L Serum Total Protein (6.0-8.3) g/dL Albumin (3.5-5.0) g/dL Globulin (2.4-3.5) g/dL Albumin/Globulin Ratio (1.1-2.2) Lipase (8-78) Units/L Urine Color Yellow (Yellow) Urine Clarity Turbid A (Clear) Urine pH 7.5 (5.0-8.0) pH Units Ur Specific Wallback 1.020 (1.010-1.025) Urine Protein 30 H (Neg-Trace) mg/dL Urine Glucose (UA) Normal (Normal) mg/dL Urine Ketones Negative (Negative) mg/dL Urine Blood Negative (Negative) Urine Nitrite Negative (Negative) Urine Bilirubin Negative (Negative) Urine Urobilinogen Normal (Normal) mg/dL Ur Leukocyte Esterase Small H (Negative) Urine Microscopic RBC 5-15 H (0-3) per hpf Urine Microscopic WBC 5-15 H (0-3) per hpf Ur Squamous Epith Cells Many H (None-Few) per lpf Urine Bacteria None Seen (None-Few) per hpf Hyaline Casts None Seen (None-Few) per lpf 08/12/17 08/12/17 Range/Units 10:57 10:57 WBC (4.3-11.1) K/mcL RBC (3.82-4.97) M/mcL Hgb (11.5-15.4) g/dL Hct (35.3-44.9) % MCV (83.0-100.0) fL MCH (28.0-33.3) pg MCHC (31.6-35.5) g/dL RDW (11.5-14.5) % Plt Count (140-400) K/mcL MPV (9.4-12.4) fL Immature Gran % (0-4) % Seg Neutrophils % % Lymphocytes % % Monocytes % % Eosinophils % % Basophils % % Neutrophils # (1.6-8.9) K/mcL Lymphocytes # (0.6-4.6) K/mcL Monocytes # (0.0-1.3) K/mcL Eosinophils # (0.0-0.6) K/mcL Basophils # (0.0-0.2) K/mcL PT (9.4-12.1) Seconds INR APTT (26.0-36.0) Seconds Sodium 141 (136-145) mEq/L Potassium 3.8 (3.5-4.5) mEq/L Chloride 104 (98-109) mEq/L Carbon Dioxide 29 (19-29) mEq/L BUN 19 (7-20) mg/dL Creatinine 0.77 (0.57-1.11) mg/dL Est GFR ( Amer) > 60 (> 60) Est GFR (Non-Af Amer) > 60 (> 60) BUN/Creatinine Ratio 25 (6-26) Glucose 95 (70-99) mg/dL Calculated Osmolality 294 (280-300) Lactic Acid 1.2 (0.5-2.2) mmol/L Calcium 9.1 (8.6-10.8) mg/dL Total Bilirubin 0.4 (0.2-1.2) mg/dL Direct Bilirubin 0.2 (0.0-0.5) mg/dL Indirect Bilirubin 0.2 (0.0-1.2) mg/dL AST 21 (5-34) Units/L ALT 21 (0-55) Units/L Alkaline Phosphatase 108 (38-126) Units/L Serum Total Protein 6.1 (6.0-8.3) g/dL Albumin 2.8 L (3.5-5.0) g/dL Globulin 3.3 (2.4-3.5) g/dL Albumin/Globulin Ratio 0.8 L (1.1-2.2) Lipase 492 H (8-78) Units/L Urine Color (Yellow) Urine Clarity (Clear) Urine pH (5.0-8.0) pH Units Ur Specific Wall[place] (1.010-1.025) Urine Protein (Neg-Trace) mg/dL Urine Glucose (UA) (Normal) mg/dL Urine Ketones (Negative) mg/dL Urine Blood (Negative) Urine Nitrite (Negative) Urine Bilirubin (Negative) Urine Urobilinogen (Normal) mg/dL Ur Leukocyte Esterase (Negative) Urine Microscopic RBC (0-3) per hpf Urine Microscopic WBC (0-3) per hpf Ur Squamous Epith Cells (None-Few) per lpf Urine Bacteria (None-Few) per hpf Hyaline Casts (None-Few) per lpf - Radiology Data Radiology results reviewed: Yes I reviewed the patient's radiology results. CT imaging of the chest and abdomen as well as previous CT angiography were reviewed in detail. - EKG Data EKG #1 EKG attestation: Yes I reviewed and interpreted this EKG. EKG results narrative: EKG reviewed by myself. EKG read as atrial fibrillation but there are no visible P waves and QRS complexes after them throughout the rhythm strip. Patient appears to have PVCs in the cardiac induction as well as PACs. Patient' s rate is 86. Intervals are otherwise in work. No acute signs of ST segment elevated sugars. EKG reviewed from previous from February 192016. Previous EKG shows sinus rhythm with no acute abnormalities. Patient most likely has arrhythmia secondary to discomfort and pain.
[2017-08-12] MEDS ORDERED: Naloxone 0.4 MG/ML INJ IVP PRN (17:22)
[2017-08-12] MEDS ORDERED: Acetaminophen 325 MG TABLET PO PRN (17:22)
[2017-08-12] MEDS ORDERED: Ondansetron 4 MG/2 ML VIAL IVP PRN (17:22)
[2017-08-12] MEDS ORDERED: traMADol 50 MG TABLET PO PRN (17:31)
[2017-08-12] MEDS: *HR* HYDROmorphone (PF) 1 MG/ML SYRINGE IVP PRN (17:54)
--- NOTE | 2017-08-12 17:58 | Internal Med History&Physical ---
<Bobby Stark - Last Filed: 08/12/17 18:42> Date of Encounter: 08/12/17 Time of Encounter: 17:30 Assessment and Plan (1) Pancreatitis Current visit: Yes Status: Acute RLQ pain r/t pancreatitis dx. Pt. reports pain intermittently for the past several weeks with worsening abdominal pain over the past week. Denies nausea and vomiting. Will provide supportive measures. IV 0.9 NS 100 mL/HR. NPO except ice chips. Will swab pts. mouth. Stair-step pain medications ordered for pain management. GI consult ordered. Qualifiers: Chronicity: acute Pancreatitis type: unspecified pancreatitis type Acute pancreatitis complication: unspecified Qualified Code(s): K85.90 - Acute pancreatitis without necrosis or infection, unspecified (2) Abdominal pain Current visit: Yes Status: Acute Acute abdominal pain of RLQ r/t pancreatitis. Lipase 492. NPO except ice chips for now. IV 0.9 NS @ 100 mL/HR. Stair-step pain medications for pain management. Qualifiers: Abdominal location: right lower quadrant Qualified Code(s): R10.31 - Right lower quadrant pain (3) Metastatic cancer Current visit: Yes Status: Acute CT imaging today shows mediastinal anterior cardiophrenic angle lymphadenopathy likely reflects metastatic disease. Mediastinal nodes encased and mildly narrows the left lobar pulmonary artery and left main stem bronchus. Numerous left lung pulmonary nodules which are predominantly pleural-based. Largest left upper lobe mass measures up to 1.9 cm. Overall findings are worrisome for metastatic disease. Hypoenhancing hepatic mass is not significantly changed in size and also consistent with metastatic disease. Numerous peritoneal based soft tissue nodules are consistent with metastatic disease. Oncology consult ordered and discussed w/Dr. Meyers w/recommendations for liver biopsy and orders for cancer antigens. Discussed w/pt. and family who are amenable. PT/ APTT in a.m. labs. (4) Sacral decubitus ulcer Current visit: Yes Status: Chronic Chronic sacral decubitus ulcer. Wound care consult. Daily wound care ordered. Orders to re-position pt. to avoid shear. Qualifiers: Pressure ulcer stage: unspecified pressure ulcer stage Qualified Code(s): L89.159 - Pressure ulcer of sacral region, unspecified stage (5) COPD (chronic obstructive pulmonary disease) Current visit: Yes Status: Chronic Hx of chronic COPD r/t tobacco abuse. Pt. reports quitting smoking three weeks ago. DuoNebs Q6 scheduled. Supplemental O2 w/titration and SpO2 monitoring. Tessalon 100 mg TID for cough. Monitor pt. and VS. Qualifiers: COPD type: unspecified COPD Qualified Code(s): J44.9 - Chronic obstructive pulmonary disease, unspecified (6) AAA (abdominal aortic aneurysm) Current visit: Yes Status: Resolved Hx of AAA. Pt. reports repair in February 2017. Stable. Qualifiers: Presence of rupture: without rupture Qualified Code(s): I71.4 - Abdominal aortic aneurysm, without rupture (7) DVT prophylaxis Current visit: Yes Status: Acute Heparin 5,000 units SQ Q8 for DVT prophylaxis. Internal Medicine - H&P: HPI Chief complaint: Abdominal pain Admitted From: Emergency Dept Plans for Post Hospital Care: Home History of present illness: Ms. Gibbs is a 82 year old female with medical hx of aortic aneurysm with repair done in February 2017, COPD, and CVA presents from the ED with chief complaint of abdominal pain of the right lower quadrant which she states has been occurring intermittently over the past several months that has become worse over the past week. Patient states she had AAA repair done in February 2017 and had a follow-up appointment today. Imaging today showed evidence of metastatic cancer in the lung, liver, and several lymph nodes which pt. and family were unaware of. Patient reports abdominal pain, dyspnea, and edema in bilateral LEs. Denies recent illness, fever, chills, nausea, vomiting, weakness , numbness, tingling, chest pain, palpitations, unusual bleeding, changes in vision, headache, lightheadedness, dizziness, pre-syncope, or syncope. Past Med Surg Social Fam HX - Past Medical History Source: patient, old records reviewed, obtained from family Medical history: aortic aneurysm, COPD, CVA Psychiatric history: no psych history - Past Surgical History Surgical History: orthopedic, other - Social History Smoking Status: Former smoker Smokeless Tobacco Status: No Alcohol use: none Drug use: none Current living situation: Home Activity Level: Independent ambulation Recent Out of Country Travel Within the Last 8 Weeks: No Exposure or Possible Exposure to Illness During Travel: No - Family History Father Race: Family Member Ethnicity: Non- Living Status: Hx Family Respiratory Disorders: Yes (Black lung) Internal Medicine - H&P: Meds Loratadine [Claritin] 10 mg PO DAILY 08/12/15 [History] Acetaminophen [Tylenol] 650 mg PO Q6HR PRN #20 tablet 08/14/16 [Rx] Tramadol HCl [Ultram] 50 mg PO DAILY PRN 08/12/17 [History] 3 Allergy/AdvReac Type Severity Reaction Status Date / Time codeine Allergy See Verified 08/12/17 09:56 Comments Fish Containing Products Allergy Anaphylaxis Verified 08/12/17 09:56 fish derived Allergy Anaphylaxis Verified 08/12/17 09:56 fish oil Allergy Anaphylaxis Verified 08/12/17 09:56 hydrocodone [From Vicodin] Allergy Rash Verified 08/12/17 09:56 shellfish derived Allergy Anaphylaxis Verified 08/12/17 09:56 All Systems PM: A 10-system review of systems was performed and is negative for pertinent findings except as documented above in the HPI. - Constitutional Constitutional: as per HPI, falls, no chills, no fever(s), no night sweats - EENT Eyes: no change in vision, no discharge, no pain, no photophobia Ears: no ear discharge, no ear pain, no tinnitus Nose, mouth and throat: no dysphagia, no nasal discharge, no neck pain, no sore throat - Breasts Breasts: as per HPI - Cardiovascular Cardiovascular ROS IM: dyspnea, dyspnea on exertion, no chest pain, no diaphoresis, no lightheadedness, no palpitations, no syncope - Respiratory Respiratory: as per HPI, cough, dyspnea, dyspnea on exertion - Gastrointestinal Gastrointestinal: as per HPI, abdominal pain (RLQ) - Genitourinary Genitourinary: no change in urinary stream, no dysuria, no flank pain, no hematuria Menstruation: as per HPI - Musculoskeletal Musculoskeletal ROS IM: no numbness, no tingling - Integumentary Integumentary IM: as per HPI, skin ulcer (Sacral decubitus ulcer) - Neurological Neurological ROS: no confusion, no convulsions, no focal weakness, no numbness, no tingling, no tremor(s) - Psychiatric Psychiatric: as per HPI - Endocrine Endocrine IM: as per HPI - Hematologic/Lymphatic Hematologic/Lymphatic: no easy bruising - Allergic/Immunologic Allergic/Immunologic: as per HPI - Constitutional Vitals: Temp Pulse Resp BP Pulse Ox 97.3 F L 85 18 153/75 99 08/12/17 16:46 08/12/17 16:46 08/12/17 16:46 08/12/17 16:46 08/12/17 16:46 General appearance: Present: cooperative, A&O X 3, pleasant, no acute distress, underweight, answers questions appropriately - Head Head exam: Present: atraumatic, normocephalic - Eye Eye exam: Present: PERRL, conjuntiva pink, sclera anicteric Pupils: Present: PERRL - ENT ENT exam: Present: normal exam, normal external ear exam - Neck Neck exam general surgery: Present: normal inspection, supple, trachea midline. Absent: lymphadenopathy - Respiratory Respiratory exam: Present: CTAB. Absent: accessory muscle use, rales, rhonchi, wheezes - Cardiovascular Cardiovascular exam: Present: RRR, +S1, +S2. Absent: diastolic murmur, gallop, rubs, systolic murmur - GI/Abdominal GI/Abdominal exam: Present: normal bowel sounds, soft, no peritoneal signs. Absent: distended, tenderness - Rectal Rectal exam: Present: deferred - Additional comments: exam deferred. - Extremities Exam Extremities exam: Present: warm, radial pulses palpable and symmetrical. Absent : calf tenderness, cyanotic, pedal edema - Back Exam Back exam: Present: normal inspection - Neurological Exam Neurological exam: Present: CN II-XII intact, oriented X3, no focal deficits. Absent: pronater drift, facial droop, speech deficit - Psychiatric Psychiatric exam: Present: normal affect, normal mood - Skin Skin exam: Present: dry, intact Additional comments: Decubitus ulcer on sacrum. Internal Med - H&P Results - Labs CBC & Chem 7: 08/12/17 10:57 08/12/17 10:57 - Diagnostic Studies Chest x-ray Additional comments: Impressions Chest X-Ray 08/12/17 10:43 IMPRESSION: Left upper lobe mass measuring 6.1 x 3 cm abutting the mediastinum suspicious for lung malignancy. CT of the chest with contrast is recommended for further evaluation. D/ / 08/12/2017 11:37:57 Alejandro Ha MD / tommie Interpreting Provider: Alejandro Ha MD CT scan - abdomen Additional comments: Impressions Chest X-Ray 08/12/17 10:43 IMPRESSION: Left upper lobe mass measuring 6.1 x 3 cm abutting the mediastinum suspicious for lung malignancy. CT of the chest with contrast is recommended for further evaluation. D/ / 08/12/2017 11:37:57 Alejandro Ha MD / tommie Interpreting Provider: Alejandro Ha MD Abdomen/Pelvis CT 08/12/17 11:27 IMPRESSION: Mediastinal and anterior cardiophrenic angle lymphadenopathy likely reflects metastatic disease. Mediastinal nodes encase and mildly narrow the left lobar pulmonary artery and left main stem bronchus. Numerous left lung pulmonary nodules, which are predominantly pleural-based. Largest left upper lobe mass measures up to 1.9 cm. Overall, findings are worrisome for metastatic disease. Hypoenhancing hepatic mass is not significantly changed in size and also consistent with metastatic disease. Numerous peritoneal based soft tissue nodules are consistent with metastatic disease. No intra-abdominal ascites. D/ / 08/12/2017 13:39:28 Patrice Mercer MD / krzysztof Interpreting Provider: Patrice Mercer MD CT scan - chest Additional comments: Impressions Chest CT 08/12/17 11:27 IMPRESSION: Mediastinal and anterior cardiophrenic angle lymphadenopathy likely reflects metastatic disease. Mediastinal nodes encase and mildly narrow the left lobar pulmonary artery and left main stem bronchus. Numerous left lung pulmonary nodules, which are predominantly pleural-based. Largest left upper lobe mass measures up to 1.9 cm. Overall, findings are worrisome for metastatic disease. Hypoenhancing hepatic mass is not significantly changed in size and also consistent with metastatic disease. Numerous peritoneal based soft tissue nodules are consistent with metastatic disease. No intra-abdominal ascites. D/ / 08/12/2017 13:39:28 Patrice Mercer MD / krzysztof Interpreting Provider: Patrice Mercer MD <Josesito Estrella P - Last Filed: 08/12/17 18:53> Date of Encounter: 08/12/17 Internal Medicine - H&P: HPI History of present illness: Ms. Gibbs is a 82 year old female All Systems PM: A 10-system review of systems was performed and is negative for pertinent findings except as documented above in the HPI. - Constitutional Vitals: Temp Pulse Resp BP Pulse Ox 97.3 F L 85 18 153/75 99 08/12/17 16:46 08/12/17 16:46 08/12/17 16:46 08/12/17 16:46 08/12/17 16:46 Internal Med - H&P Results - Labs CBC & Chem 7: 08/12/17 10:57 08/12/17 10:57 - Attending Attestation I examined this patient and my medical decision-making was reviewed with the Resident Physician/ [employer]. I agree with the documented findings, disposition and treatment plan as described except to the extent set forth below.
[2017-08-12] MEDS: 0.9 % Sodium Chloride 1,000 ML IVC SCH (19:16)
[2017-08-12] MEDS: Ipratropium/Albuterol Neb 3 ML IH SCH (21:11)
[2017-08-12] MEDS: Ketorolac 30 MG/ML VIAL IVP PRN (23:25)
[2017-08-13] MEDS: *HR* Heparin 5,000 UNIT/ML VIAL SQ SCH ×4 (00:43→23:31)
[2017-08-13] MEDS: Ipratropium/Albuterol Neb 3 ML IH SCH ×4 (03:52→22:24)
[2017-08-13] MEDS: 0.9 % Sodium Chloride 1,000 ML IVC SCH ×3 (05:20→21:39)
[2017-08-13 06:53] LABS: Basophils % 0.2 %; Eosinophils % 0.5 %; Hematocrit 35.9 % (35.3-44.9); Immature Granulocytes % 0.9 % (0-4); Lymphocytes # 0.6 K/mcL (0.6-4.6); Lymphocytes % 10.5 %; Mean Corpuscular HGB Conc 30.9 g/dL (31.6-35.5); Mean Corpuscular Hemoglobin 30.6 pg (28.0-33.3); Mean Corpuscular Volume 98.9 fL (83.0-100.0); Mean Platelet Volume 10.8 fL (9.4-12.4); Monocytes # 0.4 K/mcL (0.0-1.3); Monocytes % 6.9 %; Neutrophils # 4.5 K/mcL (1.6-8.9); Platelet Count 149 K/mcL (140-400); Red Blood Count 3.63 M/mcL (3.82-4.97); Red Cell Distribution Width 16.3 % (11.5-14.5)
[2017-08-13 06:58] LABS: Hemoglobin 11.1 g/dL (11.5-15.4); Prothrombin Time 10.9 Seconds (9.4-12.1)
[2017-08-13 07:01] LABS: Activated Partial Thrombo Time 26.5 Seconds (26.0-36.0); Hemoglobin A1C 5.7 %
[2017-08-13 07:10] LABS: Alanine Aminotransferase 17 Units/L (0-55); Albumin 2.4 g/dL (3.5-5.0); Albumin/Globulin Ratio 0.9 (1.1-2.2); Alkaline Phosphatase 96 Units/L (38-126); Aspartate Amino Transferase 20 Units/L (5-34); BUN/Creatinine Ratio 25 (6-26); Bilirubin,Total 0.4 mg/dL (0.2-1.2); Blood Urea Nitrogen 18 mg/dL (7-20); Calcium 8.4 mg/dL (8.6-10.8); Carbon Dioxide 29 mEq/L (19-29); Chloride 107 mEq/L (98-109); Chol/HDL Ratio 4.2 (0-4.9); Cholesterol 168 mg/dL (< 200); Globulin 2.7 g/dL (2.4-3.5); Glucose 71 mg/dL (70-99); HDL Cholesterol 40 mg/dL (40-59); LDL Cholesterol,Calculated 102 mg/dL (0-99); Magnesium 1.8 mg/dL (1.6-2.6); Osmolality,Calculated 296 (280-300); Potassium 3.8 mEq/L (3.5-4.5); Sodium 143 mEq/L (136-145); Total Protein 5.1 g/dL (6.0-8.3); Triglycerides 131 mg/dL (< 150); eGFR For African Americans > 60 (> 60); eGFR For Non-African Americans > 60 (> 60)
[2017-08-13] MEDS: Loratadine 10 MG TABLET PO SCH (09:14)
--- NOTE | 2017-08-13 09:15 | Oncology Inp Consult Note ---
Date of Encounter: 08/13/17 Time of Encounter: 09:00 Assessment and Plan (1) Metastatic cancer Problem details: CT scan suggestive of metastatic cancer Status: Acute Assessment and plan: - I explained to Ms. Gibbs that her recent CT chest/abdomen/pelvis revealed findings highly suggestive of a metastatic malignancy. She is aware that a biopsy needs to be performed to establish a diagnosis. She is agreeable to proceed with a CT scan guided biopsy of the liver lesion with this purpose. It' s still unclear which is the primary, but differential includes lung cancer, breast cancer. Plan: - CT guided liver biopsy later today. Please do not discharge patient until pathology results are available. - Please check serum LDH, uric acid, CA27-29, CA 19-9 if not done previously. Code(s): C79.9 - Secondary malignant neoplasm of unspecified site SNOMED Code( s): 009001100 (2) Pancreatitis Problem details: Pancreatitis Status: Acute Assessment and plan: - Being managed conservatively with IVF, NPO. Management as per primary team. Qualifiers: Chronicity: acute Pancreatitis type: unspecified pancreatitis type Acute pancreatitis complication: unspecified Qualified Code(s): K85.90 - Acute pancreatitis without necrosis or infection, unspecified Code(s): K85.90 - Acute pancreatitis without necrosis or infection, unspecified SNOMED Code(s): 90843979 (3) COPD (chronic obstructive pulmonary disease) Problem details: COPD Status: Chronic Assessment and plan: - Reports quitting smoking approximately 3 weeks ago. Currently on oxygen supplementation and nebs q 6 h, but overall looks stable. Qualifiers: COPD type: emphysema Emphysema type: unspecified Qualified Code(s): J43.9 - Emphysema, unspecified Code(s): J44.9 - Chronic obstructive pulmonary disease, unspecified SNOMED Code(s): 81238599 (4) AAA (abdominal aortic aneurysm) Problem details: Histor of AAA repair in February 2017 Status: Resolved Assessment and plan: - No acute surgical issues. Seems to have recovered well from AAA repair in February 2017. Qualifiers: Presence of rupture: without rupture Qualified Code(s): I71.4 - Abdominal aortic aneurysm, without rupture Code(s): I71.4 - Abdominal aortic aneurysm, without rupture SNOMED Code(s): 835471929 (5) Sacral decubitus ulcer Problem details: Sacral ulcer decubitus Status: Chronic Assessment and plan: I agree with wound care consult as recommended per primary team. Qualifiers: Pressure ulcer stage: unspecified pressure ulcer stage Qualified Code(s): L89.159 - Pressure ulcer of sacral region, unspecified stage Code(s): L89.159 - Pressure ulcer of sacral region, unspecified stage SNOMED Code(s): 387559709 - Data of Consult Requesting Physician: Jacinto Osborne MD Primary Care Provider: Shakira Costello, - Consult Narrative Reason for consult: CT scan suggestive of metastatic cancer. History of present illness: Ms. Gibbs is a 82 year old female with history of COPD, AAA s/p repair in February 2017, CVA referred to the ED from Dr. Dhillon's office for further evaluation of abdominal pain and due to imaging suggestive of metastatic malignancy. Ms. Gibbs was not accompanied by her family during the visit, but she reports that her daughter was here yesterday and was informed about the CT scan abnormalities , and the recommendations to perform a liver biopsy. She is currently NPO and is awaiting for completion of the IR guided liver biopsy. She denies any history of bleeding disorder or recent bleeding events. She reports having colonoscopy and mammograms in the past, several years ago. She reports that her abdominal pain has been present for the last three months, gradually getting worse, associated with poor appetite, described as sharp, no radiated, and not affected for positional changes. She reports not having a bowel movement for a while. She reports living by herself, but with her 3 daughters and 2 sons living close by. 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 Reports a long history of smoking, but quit approximately 3 weeks ago ( " I just decided to quit". She reports being independent with ADLs at home, although getting support with home aids, and home food delivery. Past Med Surg Social Fam HX - Past Medical History Medical history: aortic aneurysm, COPD, CVA Psychiatric history: no psych history - Past Surgical History Surgical History: orthopedic, other - Social History Smoking Status: Former smoker Smokeless Tobacco Status: No Alcohol use: none Drug use: none - Family History Father Race: Family Member Ethnicity: Non- Living Status: Hx Family Respiratory Disorders: Yes (Black lung) Medications and Allergies Loratadine [Claritin] 10 mg PO DAILY 08/12/15 [History] Acetaminophen [Tylenol] 650 mg PO Q6HR PRN #20 tablet 08/14/16 [Rx] Tramadol HCl [Ultram] 50 mg PO DAILY PRN 08/12/17 [History] 3 Allergy/AdvReac Type Severity Reaction Status Date / Time codeine Allergy See Verified 08/12/17 09:56 Comments Fish Containing Products Allergy Anaphylaxis Verified 08/12/17 09:56 fish derived Allergy Anaphylaxis Verified 08/12/17 09:56 fish oil Allergy Anaphylaxis Verified 08/12/17 09:56 hydrocodone [From Vicodin] Allergy Rash Verified 08/12/17 09:56 shellfish derived Allergy Anaphylaxis Verified 08/12/17 09:56 Constitutional: Present: anorexia, fatigue. Absent: fever(s) Breasts: Present: skin changes. Absent: swelling Cardiovascular: Absent: chest pain with activity, diaphoresis Respiratory: Present: cough Gastrointestinal: Present: abdominal pain, constipation. Absent: dysphagia Musculoskeletal: Absent: arthralgias, neck pain Integumentary: Absent: alopecia, bleeding lesions Neurological: Absent: behavioral changes, headache(s) Psychiatric: Absent: auditory hallucinations, hallucinations Endocrine: Present: fatigue Hematologic/Lymphatic: Present: as per HPI Oncology - Exam - Constitutional Vitals: Temp Pulse Resp BP Pulse Ox 97.5 F L 115 18 124/73 96 08/13/17 07:07 08/13/17 07:07 08/13/17 07:07 08/13/17 07:07 08/13/17 07:07 - Head Head exam: Present: normal inspection, normocephalic - Eye Eye exam: Present: normal appearance. Absent: conjuntiva pink - ENT ENT exam: Present: normal exam - Neck Neck exam: Present: normal inspection. Absent: lymphadenopathy, meningismus, tenderness - Respiratory Respiratory exam: Present: CTAB, prolonged expiratory phase - Cardiovascular Cardiovascular exam: Present: RRR. Absent: systolic murmur - GI/Abdominal GI/Abdominal exam: Present: normal bowel sounds. Absent: organomegaly, pulsatile mass - Extremities Exam Extremities exam: Present: normal inspection. Absent: pedal edema, tenderness - Back Exam Back exam: Present: normal inspection - Neurological Exam Neurological exam: Present: altered, oriented X3 - Psychiatric Psychiatric exam: Present: normal affect, normal mood - Skin Skin exam: Present: normal color Oncology - Results Labs: Short CBC 08/13/17 Range/Units 05:39 WBC 5.5 (4.3-11.1) K/mcL Hgb 11.1 L D (11.5-15.4) g/dL Hct 35.9 (35.3-44.9) % Plt Count 149 (140-400) K/mcL Neutrophils # 4.5 (1.6-8.9) K/mcL BMP 08/13/17 05:39 Sodium 143 Potassium 3.8 Chloride 107 Carbon Dioxide 29 BUN 18 Creatinine 0.71 Glucose 71 Calcium 8.4 L Liver Function 08/13/17 Range/Units 05:39 Total Bilirubin 0.4 (0.2-1.2) mg/dL AST 20 (5-34) Units/L ALT 17 (0-55) Units/L Alkaline Phosphatase 96 (38-126) Units/L Albumin 2.4 L (3.5-5.0) g/dL Consult Discharge Plan - Plan Referrals: Shakira Costello MD [Primary Care Provider] -
[2017-08-13] MEDS: *HR* HYDROmorphone (PF) 1 MG/ML SYRINGE IVP PRN ×2 (10:01→19:09)
--- NOTE | 2017-08-13 10:31 | Gastroenterology Consult Note ---
<Caroline Llanos - Last Filed: 08/13/17 11:11> Date of Encounter: 08/13/17 Time of Encounter: 09:45 - Assessment and plan (1) Abdominal pain Current Visit: Yes Status: Acute Assessment and plan: Pt has evidence of metastatic cancer, primary unknown at this time. Pain is likely resulting from such. She does not appear to have obstruction as LFTs are WNL. Will await biopsy results. Qualifiers: Abdominal location: right lower quadrant Qualified Code(s): R10.31 - Right lower quadrant pain (2) Metastatic cancer Current Visit: Yes Status: Acute Assessment and plan: Primary unknown. Oncology is following, scheduled for CT guided liver biopsy today. - Time Spent With Patient Total time spent is greater than 50% in coordination of care (as documented) at patient's floor/unit and/or counseling patient: GI History of Present Illness - Data of Consult Patient: new to practice Consult date: 08/13/17 Requesting Physician: Jacinto Osborne MD - Consult Narrative Reason for consult: abdominal pain History of present illness: Ms. Gibbs is a 82 year old female with a PMhx of endovascular aortic aneurysm repair February 2017, COPD, and CVA. She presented for follow up of AAA repair to Dr Dhillon and CT showed evidence of metastatic cancer in the lung, liver, and several lymph nodes. She reports abdominal pain intermittent since 03/21 but worse the past week. She states pain is worse to RLQ area. She also reports weight loss of 30 pounds despite unchange in appetite or diet. She denies diarrhea but states she has constipation. Last BM 2 days ago with enema. She states constipation has been ongoing since August of 2016. She denies any bloody or tarry BMs. She states pain is unimproved with defacation. She denies dysphagia, nausea or vomiting. She does complain of some dyspnea and lower extremity edema. CT abdomen and chest showed .Mediastinal and anterior cardiophrenic angle lymphadenopathy, Mediastinal nodes encase and mildly narrow the left lobar pulmonary artery and left main stem bronchus, Numerous left lung pulmonary nodules, which are predominantly pleural-based. Largest left upper lobe mass measures up to 1.9 cm. Overall, findings are worrisome for metastatic disease. Hypoenhancing hepatic mass is not significantly changed in size and also consistent with metastatic disease. Numerous peritoneal based soft tissue nodules are consistent with metastatic disease. No intra-abdominal ascites. Labs showed Hgb 11.1, WBC 5.5, INR 1.0, T bili 0.4, AST 20 ALT 17, Lipase 492, CEA 7.0, CA 124. Colonoscopy: 2010 hyperplastic polyp EGD: denies NSAIDS/ASA: Anticoagulants: heparin Past Med Surg Social Fam HX - Past Medical History Medical history: aortic aneurysm, COPD, CVA Psychiatric history: no psych history - Past Surgical History Surgical History: orthopedic, other - Social History Smoking Status: Former smoker Smokeless Tobacco Status: No Alcohol use: none Drug use: none - Family History Father Race: Family Member Ethnicity: Non- Living Status: Hx Family Respiratory Disorders: Yes (Black lung) Review of Systems: GI: as per [facility] GENERAL: denies fever, or chills EYES: denies yellow discoloration ENT: denies pain with swallowing or difficulty swallowing CARDIO: denies chest pain, palpitations RESP:Shortness of breath with exertion : denies change in color of urine NEURO: weakness HEME: Denies any bruising MS: chronic joint pain, joint swelling or back pain. DERM: denies rash or itching, decubitus ulcer to coccyx PSYCH: Denies history of anxiety or depression - Constitutional Vitals: Temp Pulse Resp BP Pulse Ox 97.5 F L 115 18 124/73 96 08/13/17 09:29 08/13/17 09:29 08/13/17 09:29 08/13/17 09:29 08/13/17 09:29 General appearance: Present: cooperative, A&O X 3, no acute distress, answers questions appropriately Exam: CONSTITUTIONAL:~alert, no acute distress.~HEAD:~normocephalic.~EYES:~no jaundice.~NECK:~no obvious swelling.~HEART:~regular rate and rhythm, no murmurs. ~LUNGS:~fair air entry bilaterally.~ABDOMEN:~non distended, soft, tender right upper and lower quadrants, nodular masses palpable to midline abdomen, ~RECTAL EXAM:~Deferred.~EXTREMITIES:~no clubbing, cyanosis, trace BLE edema.~SKIN:~no stigmata of chronic liver disease, pallor noted.~NEUROLOGIC:~no obvious focal defect.~~~~ Results - Labs CBC & Chem 7: 08/13/17 05:39 08/13/17 05:39 Labs: Last Result Calcium 8.4 mg/dL (8.6-10.8) L 08/13/17 05:39 Triglycerides 131 mg/dL (< 150) 08/13/17 05:39 Entire Visit Hgb 11.1 g/dL (11.5-15.4) L D 08/13/17 05:39 Hct 35.9 % (35.3-44.9) 08/13/17 05:39 PT 10.9 Seconds (9.4-12.1) 08/13/17 05:39 Total Bilirubin 0.4 mg/dL (0.2-1.2) 08/13/17 05:39 AST 20 Units/L (5-34) 08/13/17 05:39 ALT 17 Units/L (0-55) 08/13/17 05:39 Lipase 492 Units/L (8-78) H 08/12/17 10:57 Carcinoembryonic Ag 7.0 ng/mL (0-5.0) H 08/12/17 18:42 CA 125 Ag Serial Mntr 124 U/mL (0-35) H 08/12/17 18:42 - ABG ABG results: PT/INR, D-dimer PT 10.9 Seconds (9.4-12.1) 08/13/17 05:39 Consult Discharge Plan - Plan Referrals: Shakira Costello MD [Primary Care Provider] - <Ramo Kirkpatrick - Last Filed: 08/13/17 15:36> Date of Encounter: 08/13/17 Time of Encounter: 14:30 - Time Spent With Patient Total time spent is greater than 50% in coordination of care (as documented) at patient's floor/unit and/or counseling patient: GI History of Present Illness - Data of Consult Requesting Physician: Jacinto Osborne MD - Consult Narrative History of present illness: Ms. Gibbs is a 82 year old female - Constitutional Vitals: Temp Pulse Resp BP Pulse Ox 97.7 F 95 18 126/71 97 08/13/17 11:51 08/13/17 11:51 08/13/17 11:51 08/13/17 11:51 08/13/17 11:51 Results - Labs CBC & Chem 7: 08/13/17 05:39 08/13/17 05:39 Labs: Last Result Calcium 8.4 mg/dL (8.6-10.8) L 08/13/17 05:39 Triglycerides 131 mg/dL (< 150) 08/13/17 05:39 Entire Visit Hgb 11.1 g/dL (11.5-15.4) L D 08/13/17 05:39 Hct 35.9 % (35.3-44.9) 08/13/17 05:39 PT 10.9 Seconds (9.4-12.1) 08/13/17 05:39 Total Bilirubin 0.4 mg/dL (0.2-1.2) 08/13/17 05:39 AST 20 Units/L (5-34) 08/13/17 05:39 ALT 17 Units/L (0-55) 08/13/17 05:39 Lipase 492 Units/L (8-78) H 08/12/17 10:57 Carcinoembryonic Ag 7.0 ng/mL (0-5.0) H 08/12/17 18:42 CA 125 Ag Serial Mntr 124 U/mL (0-35) H 08/12/17 18:42 - ABG ABG results: PT/INR, D-dimer PT 10.9 Seconds (9.4-12.1) 08/13/17 05:39 - Attending Attestation I examined this patient and my medical decision-making was reviewed with the Resident Physician. I agree with the documented findings, disposition and treatment plan as described except to the extent set forth below. Pt with metastatic cancer with unknow primary. RLQ pain. Will wait on liver mets biopsies
[2017-08-13] MEDS: Ketorolac 30 MG/ML VIAL IVP PRN (14:33)
--- NOTE | 2017-08-13 15:43 | Internal Med Progress Note ---
Date of Encounter: 08/13/17 Time of Encounter: 15:41 - Assessment and plan (1) Pancreatitis Current Visit: Yes Status: Acute Qualifiers: Chronicity: acute Pancreatitis type: unspecified pancreatitis type Acute pancreatitis complication: unspecified Qualified Code(s): K85.90 - Acute pancreatitis without necrosis or infection, unspecified (2) Metastatic cancer Current Visit: Yes Status: Acute (3) Sacral decubitus ulcer Current Visit: Yes Status: Chronic Qualifiers: Pressure ulcer stage: unspecified pressure ulcer stage Qualified Code(s): L89.159 - Pressure ulcer of sacral region, unspecified stage (4) AAA (abdominal aortic aneurysm) Current Visit: Yes Status: Resolved Qualifiers: Presence of rupture: without rupture Qualified Code(s): I71.4 - Abdominal aortic aneurysm, without rupture (5) COPD (chronic obstructive pulmonary disease) Current Visit: Yes Status: Chronic Qualifiers: COPD type: emphysema Emphysema type: unspecified Qualified Code(s): J43.9 - Emphysema, unspecified - Subjective Interval history: Patient was admitted yesterday for pancreatitis. Incidental finding of metastatic cancer in abdomen. Discussed the case with oncology this morning and apparently we need liver biopsy. Liver biopsy cannot be done today as patient is on subcutaneous Lovenox and therefore Lovenox will be on hold and it will be done tomorrow. Patient also has sacral decubitus ulcer and COPD. She thinks her abdominal pain is better. On examination her belly is soft but is still left upper quadrant tenderness. The amylase lipase CBC CMP ordered. Patient family is available and discuss the issues with and provided all the answers - Constitutional Vitals: Temp Pulse Resp BP Pulse Ox 97.7 F 95 18 126/71 97 08/13/17 11:51 08/13/17 11:51 08/13/17 11:51 08/13/17 11:51 08/13/17 11:51 General appearance: Present: cooperative, A&O X 3, pleasant, no acute distress, underweight, answers questions appropriately - Head Head exam: Present: atraumatic, normocephalic - Eye Eye exam: Present: PERRL, conjuntiva pink, sclera anicteric Pupils: Present: PERRL - Neck Neck exam general surgery: Present: supple, trachea midline. Absent: lymphadenopathy - Respiratory Respiratory exam: Present: CTAB. Absent: accessory muscle use, rales, rhonchi, wheezes - Cardiovascular Cardiovascular exam: Present: RRR, +S1, +S2. Absent: diastolic murmur, gallop, rubs, systolic murmur - GI/Abdominal GI/Abdominal exam: Present: normal bowel sounds, soft, tenderness, no peritoneal signs. Absent: distended - Extremities Exam Extremities exam: Present: warm, radial pulses palpable and symmetrical. Absent : calf tenderness, cyanotic, pedal edema - Neurological Exam Neurological exam: Present: CN II-XII intact, oriented X3, no focal deficits. Absent: pronater drift, facial droop, speech deficit - Skin Skin exam: Present: dry, intact Internal Medicine: Result - Labs CBC & Chem 7: 08/13/17 05:39 08/13/17 05:39 Labs: Short CBC 08/13/17 Range/Units 05:39 WBC 5.5 (4.3-11.1) K/mcL Hgb 11.1 L D (11.5-15.4) g/dL Hct 35.9 (35.3-44.9) % Plt Count 149 (140-400) K/mcL Neutrophils # 4.5 (1.6-8.9) K/mcL BMP 08/13/17 05:39 Sodium 143 Potassium 3.8 Chloride 107 Carbon Dioxide 29 BUN 18 Creatinine 0.71 Glucose 71 Calcium 8.4 L Liver Function 08/13/17 Range/Units 05:39 Total Bilirubin 0.4 (0.2-1.2) mg/dL AST 20 (5-34) Units/L ALT 17 (0-55) Units/L Alkaline Phosphatase 96 (38-126) Units/L Albumin 2.4 L (3.5-5.0) g/dL - ABG Interpretation ABG results: PT/INR, D-dimer PT 10.9 Seconds (9.4-12.1) 08/13/17 05:39 Consult Discharge Plan - Plan Referrals: Shakira Costello MD [Primary Care Provider] -
[2017-08-13] MEDS: Miconazole w/zinc oxide&karaya 92 APPL/92 GM TUBE TP SCH ×2 (16:18→21:15)
--- NOTE | 2017-08-13 17:58 | Electrocardiograph Report ---
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
--- NOTE | 2017-08-13 18:24 | Electrocardiograph Report ---
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
[2017-08-14] MEDS: *HR* HYDROmorphone (PF) 1 MG/ML SYRINGE IVP PRN ×5 (01:07→22:32)
[2017-08-14 03:37] LABS: Basophils % 0.2 %; Eosinophils % 0.2 %; Hematocrit 33.8 % (35.3-44.9); Hemoglobin 10.4 g/dL (11.5-15.4); Immature Granulocytes % 1.1 % (0-4); Lymphocytes # 0.3 K/mcL (0.6-4.6); Lymphocytes % 5.5 %; Mean Corpuscular HGB Conc 30.8 g/dL (31.6-35.5); Mean Corpuscular Hemoglobin 30.5 pg (28.0-33.3); Mean Corpuscular Volume 99.1 fL (83.0-100.0); Mean Platelet Volume 10.8 fL (9.4-12.4); Monocytes # 0.4 K/mcL (0.0-1.3); Neutrophils # 5.3 K/mcL (1.6-8.9); Platelet Count 159 K/mcL (140-400); Red Blood Count 3.41 M/mcL (3.82-4.97)
[2017-08-14] MEDS: Ipratropium/Albuterol Neb 3 ML IH SCH ×4 (03:48→21:28)
[2017-08-14 03:58] LABS: Amylase 194 Units/L (25-125); Lipase 460 Units/L (8-78)
[2017-08-14 04:00] LABS: Alanine Aminotransferase 18 Units/L (0-55); Albumin 2.4 g/dL (3.5-5.0); Albumin/Globulin Ratio 0.9 (1.1-2.2); Alkaline Phosphatase 105 Units/L (38-126); Aspartate Amino Transferase 23 Units/L (5-34); BUN/Creatinine Ratio 33 (6-26); Bilirubin,Total 0.4 mg/dL (0.2-1.2); Blood Urea Nitrogen 22 mg/dL (7-20); Calcium 8.1 mg/dL (8.6-10.8); Carbon Dioxide 26 mEq/L (19-29); Chloride 108 mEq/L (98-109); Globulin 2.7 g/dL (2.4-3.5); Glucose 125 mg/dL (70-99); Osmolality,Calculated 299 (280-300); Potassium 3.7 mEq/L (3.5-4.5); Sodium 142 mEq/L (136-145); Total Protein 5.1 g/dL (6.0-8.3); eGFR For African Americans > 60 (> 60); eGFR For Non-African Americans > 60 (> 60)
[2017-08-14] MEDS: *HR* Heparin 5,000 UNIT/ML VIAL SQ SCH ×2 (06:06→16:28)
[2017-08-14] MEDS: Miconazole w/zinc oxide&karaya 92 APPL/92 GM TUBE TP SCH ×2 (07:51→20:27)
[2017-08-14] MEDS: Loratadine 10 MG TABLET PO SCH (07:51)
[2017-08-14] MEDS: 0.9 % Sodium Chloride 1,000 ML IVC SCH (07:51)
--- NOTE | 2017-08-14 10:27 | IR Procedure Note ---
Date of procedure: 08/14/17 Consent Obtained: Verbal consent Timeout: Correct patient and procedure verified, Correct site verified, Time out performed, Skin prep completed Local anesthetic: Lidocaine 1% Indications: Metastatic cancer throughout abdomen Procedure Performed: CT guided right iliac bx. Site/Technique: Bone bx'd to minimize significant bleeding risk related to liver bx Results/Findings: Lesional material, initial look of possible small cell per Dr. Baez Estimated blood loss (cc): 1 Complications: None; Tolerated procedure well Post Procedure Treatment Plan: Monitoring in pts room
[2017-08-14] MEDS ORDERED: *HR* HYDROmorphone (PF) 1 MG/ML SYRINGE IVP PRN (10:45)
[2017-08-14] MEDS: dilTIAZem HCl 100 MG in D5% in Water 50 ML IVC SCH ×2 (11:06→20:26)
[2017-08-14] MEDS: *HR* OxyCODONE Immed Rel 5 MG TABLET PO PRN (11:49)
[2017-08-14] MEDS ORDERED: *HR* HYDROmorphone (PF) 1 MG/ML SYRINGE IVP ONE (12:29)
--- NOTE | 2017-08-14 14:39 | Oncology Inp Progress Note ---
Date of Encounter: 08/14/17 Time of Encounter: 14:42 (1) Metastatic cancer Current Visit: Yes Status: Acute Assessment and plan: -s/p IR guided biopsy of inguinal node today. I spoke with pathologist today, sample was appropriate but we still do not have a diagnosis; pathology results still pending at this time. I informed the patient and her family that final recommendations will be based on the pathology results, so I'd recommend against discharge until we have the pathology results available ( in view that the differential diagnosis include small cell lung cancer, among another possibilities such metastatic colon and breast cancer). - Tumor markers showed: CA125 elevated ( 124), CEA elevated 7, other tumor markers pending. - She remains hemodynamically stable, CBC with stable cell counts. - Check LDH, uric acid ( if not ordered yet). - Please do not discharge until pathology results are available. Code(s): C79.9 - Secondary malignant neoplasm of unspecified site SNOMED Code( s): 677391586 (2) COPD (chronic obstructive pulmonary disease) Current Visit: Yes Status: Chronic Assessment and plan: - Reports quitting smoking approximately 3 weeks ago. Seems stable. Qualifiers: COPD type: emphysema Emphysema type: unspecified Qualified Code(s): J43.9 - Emphysema, unspecified Code(s): J44.9 - Chronic obstructive pulmonary disease, unspecified SNOMED Code(s): 09002291 (3) AAA (abdominal aortic aneurysm) Current Visit: Yes Status: Resolved Assessment and plan: - No acute surgical issues. Seems to have recovered well from AAA repair in February 2017. Qualifiers: Presence of rupture: without rupture Qualified Code(s): I71.4 - Abdominal aortic aneurysm, without rupture Code(s): I71.4 - Abdominal aortic aneurysm, without rupture SNOMED Code(s): 661597503 Oncology: Subj Interval history: Patient was seen with her daughters at the bedside. She is frustrated of still being NPO, asking for ice chips. Denies shortness of breath, chest pain, fever. - Constitutional Vitals: Vital Signs Temp Pulse Resp BP Pulse Ox 08/14/17 11:25 17 92 08/14/17 11:14 98.4 F 126 17 120/70 92 08/14/17 09:56 97.9 F 132 17 123/85 90 08/14/17 09:24 123 15 103/74 99 08/14/17 09:16 131 20 122/42 96 08/14/17 06:49 98.1 F 92 18 134/79 96 08/14/17 03:01 97.6 F 87 16 149/75 96 08/13/17 23:31 98.1 F 94 16 146/73 98 08/13/17 18:46 98.3 F 106 19 131/72 100 08/13/17 16:18 18 92 08/13/17 16:12 98.1 F 100 17 97/60 92 Intake and Output 08/13/17 08/14/17 08/14/17 23:59 07:59 15:59 Intake Total 1000 / 1000 30 / 30 Output Total 100 / 100 0 / 0 Balance 900 / 900 30 / 30 Intake: IV Fluids 1000 / 1000 0.9 % Sodium Chloride 1,000 ML 1000 / 1000 @ 100 mls/hr IVC .Q10H [facility] Rx#: [id number] Oral 0 / 0 30 / 30 Output: Urine 100 / 100 0 / 0 Other: Weight 52.1 kg Patient Weight 08/14/17 23:59 Weight 52.1 kg - Head Head exam: Present: normal inspection - Neck Neck exam: Present: normal inspection - Cardiovascular Cardiovascular exam: Present: +S1 - GI/Abdominal GI/Abdominal exam: Present: normal bowel sounds Oncology: Obj Data - Labs CBC & Chem 7: 08/14/17 02:49 08/14/17 02:49 Labs: Laboratory Results - last 24 hr 08/13/17 08/14/17 08/14/17 17:28 02:49 02:49 WBC 6.2 RBC 3.41 L Hgb 10.4 L Hct 33.8 L MCV 99.1 MCH 30.5 MCHC 30.8 L RDW 16.0 H Plt Count 159 MPV 10.8 Immature Gran % 1.1 Seg Neutrophils % 86.0 Lymphocytes % 5.5 Monocytes % 7.0 Eosinophils % 0.2 Basophils % 0.2 Neutrophils # 5.3 Lymphocytes # 0.3 L Monocytes # 0.4 Eosinophils # 0.0 Basophils # 0.0 Sodium 142 Potassium 3.7 Chloride 108 Carbon Dioxide 26 BUN 22 H Creatinine 0.66 Est GFR ( Amer) > 60 Est GFR (Non-Af Amer) > 60 BUN/Creatinine Ratio 33 H Glucose 125 H Calculated Osmolality 299 Calcium 8.1 L Total Bilirubin 0.4 AST 23 ALT 18 Alkaline Phosphatase 105 Serum Total Protein 5.1 L Albumin 2.4 L Globulin 2.7 Albumin/Globulin Ratio 0.9 L Amylase Lipase 241 H 08/14/17 02:49 WBC RBC Hgb Hct MCV MCH MCHC RDW Plt Count MPV Immature Gran % Seg Neutrophils % Lymphocytes % Monocytes % Eosinophils % Basophils % Neutrophils # Lymphocytes # Monocytes # Eosinophils # Basophils # Sodium Potassium Chloride Carbon Dioxide BUN Creatinine Est GFR ( Amer) Est GFR (Non-Af Amer) BUN/Creatinine Ratio Glucose Calculated Osmolality Calcium Total Bilirubin AST ALT Alkaline Phosphatase Serum Total Protein Albumin Globulin Albumin/Globulin Ratio Amylase 194 H Lipase 460 H - Impressions Impressions Bone Biopsy CT 08/14/17 00:00 IMPRESSION: Successful CT-guided right iliac soft tissue destructive mass biopsy as above. D/ / Sergo Ramon MD / Sergo Ramon MD Interpreting Provider: Sergo Ramon MD - ABG Interpretation ABG results: PT/INR, D-dimer PT 10.9 Seconds (9.4-12.1) 08/13/17 05:39 Consult Discharge Plan - Plan Referrals: Shakira Costello MD [Primary Care Provider] -
--- NOTE | 2017-08-14 15:37 | Internal Med Progress Note ---
Date of Encounter: 08/14/17 Time of Encounter: 15:35 - Assessment and plan (1) Pancreatitis Current Visit: Yes Status: Acute Qualifiers: Chronicity: acute Pancreatitis type: unspecified pancreatitis type Acute pancreatitis complication: unspecified Qualified Code(s): K85.90 - Acute pancreatitis without necrosis or infection, unspecified (2) Metastatic cancer Current Visit: Yes Status: Acute (3) Sacral decubitus ulcer Current Visit: Yes Status: Chronic Qualifiers: Pressure ulcer stage: unspecified pressure ulcer stage Qualified Code(s): L89.159 - Pressure ulcer of sacral region, unspecified stage (4) AAA (abdominal aortic aneurysm) Current Visit: Yes Status: Resolved Qualifiers: Presence of rupture: without rupture Qualified Code(s): I71.4 - Abdominal aortic aneurysm, without rupture (5) COPD (chronic obstructive pulmonary disease) Current Visit: Yes Status: Chronic Qualifiers: COPD type: emphysema Emphysema type: unspecified Qualified Code(s): J43.9 - Emphysema, unspecified (6) Right shoulder pain Current Visit: Yes Status: Acute Qualifiers: Chronicity: unspecified Qualified Code(s): M25.511 - Pain in right shoulder - Subjective Interval history: Patient was admitted yesterday for pancreatitis. Incidental finding of metastatic cancer in abdomen. Discussed the case with oncology this morning and apparently we need liver biopsy. Liver biopsy cannot be done today as patient is on subcutaneous Lovenox and therefore Lovenox will be on hold and it will be done tomorrow. Patient also has sacral decubitus ulcer and COPD. She thinks her abdominal pain is better. On examination her belly is soft but is still left upper quadrant tenderness. The amylase lipase CBC CMP ordered. Patient family is available and discuss the issues with and provided all the answers 08/14 patient complaining of right shoulder pain which according to her has been going on for last few weeks. Concern if it is dislocated but as I checked it she has good range of motion though very painful. I am concerned about metastatic disease therefore will order a whole body bone scan. I will also order x-ray shoulder to rule out any dislocation. Still quite tender in her belly and her amylase and lipase are still up as a matter fact lipase has gone up this morning. I think we should continue her nothing by mouth for now. Discussed with the oncology and noted the issues regarding biopsy. Final report is pending. Urine showed leukocytes but cultures are negative. Asymptomatic. Family updated. - Constitutional Vitals: Temp Pulse Resp BP Pulse Ox 97.5 F L 129 17 154/70 93 08/14/17 15:19 08/14/17 15:19 08/14/17 15:19 08/14/17 15:19 08/14/17 15:19 General appearance: Present: cooperative, A&O X 3, pleasant, no acute distress, underweight, answers questions appropriately - Head Head exam: Present: atraumatic, normocephalic - Eye Eye exam: Present: PERRL, conjuntiva pink, sclera anicteric Pupils: Present: PERRL - Neck Neck exam general surgery: Present: supple, trachea midline. Absent: lymphadenopathy - Respiratory Respiratory exam: Present: CTAB. Absent: accessory muscle use, rales, rhonchi, wheezes - Cardiovascular Cardiovascular exam: Present: RRR, +S1, +S2. Absent: diastolic murmur, gallop, rubs, systolic murmur - GI/Abdominal GI/Abdominal exam: Present: normal bowel sounds, soft, tenderness, no peritoneal signs. Absent: distended - Extremities Exam Extremities exam: Present: warm, radial pulses palpable and symmetrical. Absent : calf tenderness, cyanotic, pedal edema Additional comments: Right shoulder examined which is quite tender anteriorly but is still she is able to move in all directions more tender in the bicipital groove area. Neurovascular status is stable - Neurological Exam Neurological exam: Present: CN II-XII intact, oriented X3, no focal deficits. Absent: pronater drift, facial droop, speech deficit - Skin Skin exam: Present: dry, intact Internal Medicine: Result - Labs CBC & Chem 7: 08/14/17 02:49 08/14/17 02:49 Labs: Short CBC 08/14/17 Range/Units 02:49 WBC 6.2 (4.3-11.1) K/mcL Hgb 10.4 L (11.5-15.4) g/dL Hct 33.8 L (35.3-44.9) % Plt Count 159 (140-400) K/mcL Neutrophils # 5.3 (1.6-8.9) K/mcL BMP 08/14/17 02:49 Sodium 142 Potassium 3.7 Chloride 108 Carbon Dioxide 26 BUN 22 H Creatinine 0.66 Glucose 125 H Calcium 8.1 L Liver Function 08/14/17 Range/Units 02:49 Total Bilirubin 0.4 (0.2-1.2) mg/dL AST 23 (5-34) Units/L ALT 18 (0-55) Units/L Alkaline Phosphatase 105 (38-126) Units/L Albumin 2.4 L (3.5-5.0) g/dL - ABG Interpretation ABG results: PT/INR, D-dimer PT 10.9 Seconds (9.4-12.1) 08/13/17 05:39 - Impressions Impressions Bone Biopsy CT 08/14/17 00:00 IMPRESSION: Successful CT-guided right iliac soft tissue destructive mass biopsy as above. D/ / Sergo Ramon MD / Sergo Ramon MD Interpreting Provider: Sergo Ramon MD Consult Discharge Plan - Plan Referrals: Shakira Costello MD [Primary Care Provider] -
[2017-08-14] MEDS ORDERED: 0.9 % Sodium Chloride 1,000 ML IVC SCH (15:45)
[2017-08-15] MEDS: *HR* Heparin 5,000 UNIT/ML VIAL SQ SCH ×4 (01:03→23:06)
[2017-08-15] MEDS: Ipratropium/Albuterol Neb 3 ML IH SCH ×4 (03:35→22:38)
[2017-08-15] MEDS: dilTIAZem HCl 100 MG in D5% in Water 50 ML IVC SCH ×2 (04:47→11:17)
[2017-08-15] MEDS: *HR* HYDROmorphone (PF) 1 MG/ML SYRINGE IVP PRN ×3 (04:50→14:15)
[2017-08-15 06:42] LABS: Basophils % 0.2 %; Eosinophils % 0.3 %; Hematocrit 33.6 % (35.3-44.9); Hemoglobin 10.5 g/dL (11.5-15.4); Immature Granulocytes % 1.1 % (0-4); Lymphocytes # 0.5 K/mcL (0.6-4.6); Lymphocytes % 6.9 %; Mean Corpuscular HGB Conc 31.3 g/dL (31.6-35.5); Mean Corpuscular Hemoglobin 30.7 pg (28.0-33.3); Mean Corpuscular Volume 98.2 fL (83.0-100.0); Mean Platelet Volume 10.7 fL (9.4-12.4); Monocytes # 0.4 K/mcL (0.0-1.3); Monocytes % 6.2 %; Neutrophils # 5.7 K/mcL (1.6-8.9); Platelet Count 147 K/mcL (140-400); Red Blood Count 3.42 M/mcL (3.82-4.97); Red Cell Distribution Width 16.4 % (11.5-14.5); Segmented Neutrophils % 85.3 %
[2017-08-15 06:57] LABS: Alanine Aminotransferase 17 Units/L (0-55); Albumin 2.3 g/dL (3.5-5.0); Albumin/Globulin Ratio 0.9 (1.1-2.2); Alkaline Phosphatase 97 Units/L (38-126); Amylase 102 Units/L (25-125); Aspartate Amino Transferase 21 Units/L (5-34); BUN/Creatinine Ratio 17 (6-26); Bilirubin,Total 0.5 mg/dL (0.2-1.2); Blood Urea Nitrogen 11 mg/dL (7-20); Carbon Dioxide 27 mEq/L (19-29); Chloride 107 mEq/L (98-109); Globulin 2.7 g/dL (2.4-3.5); Glucose 107 mg/dL (70-99); Lipase 151 Units/L (8-78); Osmolality,Calculated 294 (280-300); Potassium 3.9 mEq/L (3.5-4.5); Sodium 142 mEq/L (136-145); eGFR For African Americans > 60 (> 60); eGFR For Non-African Americans > 60 (> 60)
[2017-08-15] MEDS: Loratadine 10 MG TABLET PO SCH (08:46)
[2017-08-15] MEDS: Miconazole w/zinc oxide&karaya 92 APPL/92 GM TUBE TP SCH ×2 (08:47→22:07)
[2017-08-15] MEDS ORDERED: Furosemide 40 MG/4 ML VIAL IVP ONE (12:20)
--- NOTE | 2017-08-15 12:26 | Internal Med Progress Note ---
Date of Encounter: 08/15/17 Time of Encounter: 12:24 - Assessment and plan (1) Pancreatitis Current Visit: Yes Status: Acute Qualifiers: Chronicity: acute Pancreatitis type: unspecified pancreatitis type Acute pancreatitis complication: unspecified Qualified Code(s): K85.90 - Acute pancreatitis without necrosis or infection, unspecified (2) Metastatic cancer Current Visit: Yes Status: Acute (3) Sacral decubitus ulcer Current Visit: Yes Status: Chronic Qualifiers: Pressure ulcer stage: unspecified pressure ulcer stage Qualified Code(s): L89.159 - Pressure ulcer of sacral region, unspecified stage (4) AAA (abdominal aortic aneurysm) Current Visit: Yes Status: Resolved Qualifiers: Presence of rupture: without rupture Qualified Code(s): I71.4 - Abdominal aortic aneurysm, without rupture (5) COPD (chronic obstructive pulmonary disease) Current Visit: Yes Status: Chronic Qualifiers: COPD type: emphysema Emphysema type: unspecified Qualified Code(s): J43.9 - Emphysema, unspecified (6) Right shoulder pain Current Visit: Yes Status: Acute Qualifiers: Chronicity: unspecified Qualified Code(s): M25.511 - Pain in right shoulder (7) UTI (urinary tract infection) Current Visit: Yes Status: Acute Qualifiers: Hematuria presence: without hematuria Qualified Code(s): N39.0 - Urinary tract infection, site not specified - Subjective Interval history: Patient was admitted yesterday for pancreatitis. Incidental finding of metastatic cancer in abdomen. Discussed the case with oncology this morning and apparently we need liver biopsy. Liver biopsy cannot be done today as patient is on subcutaneous Lovenox and therefore Lovenox will be on hold and it will be done tomorrow. Patient also has sacral decubitus ulcer and COPD. She thinks her abdominal pain is better. On examination her belly is soft but is still left upper quadrant tenderness. The amylase lipase CBC CMP ordered. Patient family is available and discuss the issues with and provided all the answers 08/14 patient complaining of right shoulder pain which according to her has been going on for last few weeks. Concern if it is dislocated but as I checked it she has good range of motion though very painful. I am concerned about metastatic disease therefore will order a whole body bone scan. I will also order x-ray shoulder to rule out any dislocation. Still quite tender in her belly and her amylase and lipase are still up as a matter fact lipase has gone up this morning. I think we should continue her nothing by mouth for now. Discussed with the oncology and noted the issues regarding biopsy. Final report is pending. Urine showed leukocytes but cultures are negative. Asymptomatic. Family updated. 08/15 pain is better controlled now. X-ray showed no dislocation but a lesion in Cricoid process question nondisplaced fracture. Bone scan is still pending. Abdominal pain has been reduced but is still left upper quadrant tenderness though overall abdomen is much softer and without tenderness. No rebound tenderness. Start full liquids. Both amylase and lipase are down now. Biopsy report is pending. Chest examination showed bilateral rhonchi. Will order an x -ray and to stop IV fluids. IV Lasix 20 mg 1. UA showed some leukocytes and somewhat concerned about lungs therefore IV Levaquin will be added for now. - Constitutional Vitals: Temp Pulse Resp BP Pulse Ox 97.2 F L 89 16 144/62 95 08/15/17 10:46 08/15/17 10:46 08/15/17 10:58 08/15/17 10:46 08/15/17 10:58 General appearance: Present: cooperative, A&O X 3, pleasant, no acute distress, underweight, answers questions appropriately - Head Head exam: Present: atraumatic, normocephalic - Eye Eye exam: Present: PERRL, conjuntiva pink, sclera anicteric Pupils: Present: PERRL - Neck Neck exam general surgery: Present: supple, trachea midline. Absent: lymphadenopathy - Respiratory Respiratory exam: Present: CTAB, rhonchi. Absent: accessory muscle use, rales, wheezes - Cardiovascular Cardiovascular exam: Present: RRR, +S1, +S2. Absent: diastolic murmur, gallop, rubs, systolic murmur - GI/Abdominal GI/Abdominal exam: Present: normal bowel sounds, soft, tenderness, no peritoneal signs. Absent: distended - Extremities Exam Extremities exam: Present: warm, radial pulses palpable and symmetrical. Absent : calf tenderness, cyanotic, pedal edema - Neurological Exam Neurological exam: Present: CN II-XII intact, oriented X3, no focal deficits. Absent: pronater drift, facial droop, speech deficit - Skin Skin exam: Present: dry, intact Internal Medicine: Result - Labs CBC & Chem 7: 08/15/17 06:26 08/15/17 05:33 Labs: Short CBC 08/15/17 Range/Units 06:26 WBC 6.7 (4.3-11.1) K/mcL Hgb 10.5 L (11.5-15.4) g/dL Hct 33.6 L (35.3-44.9) % Plt Count 147 (140-400) K/mcL Neutrophils # 5.7 (1.6-8.9) K/mcL BMP 08/15/17 05:33 Sodium 142 Potassium 3.9 Chloride 107 Carbon Dioxide 27 BUN 11 D Creatinine 0.64 Glucose 107 H Calcium 8.0 L Liver Function 08/15/17 Range/Units 05:33 Total Bilirubin 0.5 (0.2-1.2) mg/dL AST 21 (5-34) Units/L ALT 17 (0-55) Units/L Alkaline Phosphatase 97 (38-126) Units/L Albumin 2.3 L (3.5-5.0) g/dL - ABG Interpretation ABG results: PT/INR, D-dimer PT 10.9 Seconds (9.4-12.1) 08/13/17 05:39 - Impressions Impressions Shoulder X-Ray 08/14/17 15:31 IMPRESSION: 1. Possible subtle lucency in the coracoid process, may represent a subtle nondisplaced fracture. 2. No other acute abnormality of the shoulder identified. The humeral head is well seated within the glenoid fossa. 3. Mild right rotator cuff calcific tendinopathy. 4. Metastatic disease of the chest again identified. D/ /14/2017 20:40:08 Oziel Sarmiento MD / cristy Interpreting Provider: Oziel Sarmiento MD Consult Discharge Plan - Plan Referrals: Shakira Costello MD [Primary Care Provider] -
[2017-08-15] MEDS: *HR* OxyCODONE Immed Rel 5 MG TABLET PO PRN ×2 (12:51→23:05)
[2017-08-15] MEDS: Levofloxacin 500 MG/100 ML 500 MG/100 ML BAG IVPB SCH (12:51)
[2017-08-15] MEDS ORDERED: 0.9 % Sodium Chloride 500 ML ONE (15:29)
--- NOTE | 2017-08-15 18:03 | Oncology Inp Progress Note ---
Date of Encounter: 08/15/17 Time of Encounter: 17:00 (1) Metastatic cancer Current Visit: Yes Status: Acute Assessment and plan: Patient with lymphadenopathy in the mediastinum, likely related to primary lung malignancy versus lymphoma, status post CT-guided biopsy of the right iliac bony lesion, final pathology pending. She also has likely metastatic lung nodules, liver lesions, borderline performance status for treatment with the chemotherapy after diagnosis. The pain in the back due to movements, denies any abdominal pain she was hospitalized with suspicion of pancreatitis. Currently oxycodone is controlling the pain. Lipase trending down Will follow final path, then discuss with patient/family regarding treatment Oncology: Subj Interval history: Denies abd pain or nausea - Constitutional Vitals: Vital Signs Temp Pulse Resp BP Pulse Ox 08/15/17 16:03 16 93 08/15/17 15:57 97.7 F 97 17 136/68 92 08/15/17 10:58 16 95 08/15/17 10:46 97.2 F L 89 16 144/62 95 08/15/17 08:57 93 08/15/17 06:47 97.8 F 84 16 138/72 93 08/15/17 05:53 97.8 F 85 16 132/76 94 08/15/17 03:24 97.6 F 82 18 134/74 93 08/14/17 22:50 98.0 F 82 18 119/67 94 08/14/17 20:22 98.2 F 84 16 125/73 95 Intake and Output 08/15/17 08/15/17 08/15/17 07:59 15:59 23:59 Intake Total 50 / 50 50 / 50 220 / 220 Output Total 600 / 600 400 / 400 Balance -550 / -550 -350 / -350 220 / 220 Intake: IV Fluids 50 / 50 50 / 50 Cardizem 100 MG In Dextrose 5% 50 / 50 50 / 50 (ADD-[place]) 50 ML @ 5 MG/HR 2 .5 mls/hr IVC .Q20H [facility] Rx#: [id number] Oral 0 / 0 220 / 220 Output: Urine 600 / 600 400 / 400 Other: Meal Dinner Weight 53.5 kg Patient Weight 08/15/17 23:59 Weight 53.5 kg General appearance: thin - Head Head exam: Present: atraumatic, normal inspection - Eye Eye exam: Present: sclera anicteric - ENT ENT exam: Present: mucous membranes moist - Respiratory Additional comments: DEcr ae tierney - Cardiovascular Cardiovascular exam: Present: +S1, +S2 - GI/Abdominal GI/Abdominal exam: Present: normal bowel sounds, soft - Extremities Exam Extremities exam: Present: normal inspection Oncology: Obj Data - Labs CBC & Chem 7: 08/15/17 06:26 08/15/17 05:33 Labs: Laboratory Results - last 24 hr 08/15/17 08/15/17 05:33 06:26 WBC 6.7 RBC 3.42 L Hgb 10.5 L Hct 33.6 L MCV 98.2 MCH 30.7 MCHC 31.3 L RDW 16.4 H Plt Count 147 MPV 10.7 Immature Gran % 1.1 Seg Neutrophils % 85.3 Lymphocytes % 6.9 Monocytes % 6.2 Eosinophils % 0.3 Basophils % 0.2 Neutrophils # 5.7 Lymphocytes # 0.5 L Monocytes # 0.4 Eosinophils # 0.0 Basophils # 0.0 Sodium 142 Potassium 3.9 Chloride 107 Carbon Dioxide 27 BUN 11 D Creatinine 0.64 Est GFR ( Amer) > 60 Est GFR (Non-Af Amer) > 60 BUN/Creatinine Ratio 17 Glucose 107 H Calculated Osmolality 294 Calcium 8.0 L Total Bilirubin 0.5 AST 21 ALT 17 Alkaline Phosphatase 97 Serum Total Protein 5.0 L Albumin 2.3 L Globulin 2.7 Albumin/Globulin Ratio 0.9 L Amylase 102 Lipase 151 H - Impressions Impressions Bone Scan Nuclear Medicine 08/14/17 15:31 IMPRESSION: 1. Focal uptake corresponding to the right iliac bone suggesting metastatic disease. 2. Additional foci of uptake in the posterior right ribs. Pattern may represent sequela of recent fractures. Underlying metastasis cannot be excluded. 3. Probable excretion into the right renal pelvis contributing to soft tissue uptake in the right abdomen. D/ / Philippe Cardozo MD / Philpipe Cardozo MD Interpreting Provider: Philippe Cardozo MD Shoulder X-Ray 08/14/17 15:31 IMPRESSION: 1. Possible subtle lucency in the coracoid process, may represent a subtle nondisplaced fracture. 2. No other acute abnormality of the shoulder identified. The humeral head is well seated within the glenoid fossa. 3. Mild right rotator cuff calcific tendinopathy. 4. Metastatic disease of the chest again identified. D/ /14/2017 20:40:08 Oziel Sarmiento MD / [facility] Interpreting Provider: Oziel Sarmiento MD Chest X-Ray 08/15/17 12:23 IMPRESSION: Developing bilateral airspace disease, suggestive of edema or pneumonia with small left pleural effusion. Please refer to recent chest CT with regard to the presence of pulmonary nodules. D/ / Los Dill MD / Los Dill MD Interpreting Provider: Los Dill MD - ABG Interpretation ABG results: PT/INR, D-dimer PT 10.9 Seconds (9.4-12.1) 08/13/17 05:39 Consult Discharge Plan - Plan Referrals: Shakira Costello MD [Primary Care Provider] -
[2017-08-16] MEDS: dilTIAZem HCl 100 MG in D5% in Water 50 ML IVC SCH ×3 (00:19→23:55)
[2017-08-16] MEDS: Ipratropium/Albuterol Neb 3 ML IH SCH ×4 (04:05→22:41)
[2017-08-16 04:53] LABS: Basophils % 0.1 %; Eosinophils % 0.1 %; Hematocrit 32.6 % (35.3-44.9); Hemoglobin 10.3 g/dL (11.5-15.4); Immature Granulocytes % 1.2 % (0-4); Lymphocytes # 0.5 K/mcL (0.6-4.6); Lymphocytes % 6.5 %; Mean Corpuscular HGB Conc 31.6 g/dL (31.6-35.5); Mean Corpuscular Hemoglobin 30.5 pg (28.0-33.3); Mean Corpuscular Volume 96.4 fL (83.0-100.0); Mean Platelet Volume 10.7 fL (9.4-12.4); Monocytes # 0.4 K/mcL (0.0-1.3); Monocytes % 5.9 %; Platelet Count 164 K/mcL (140-400); Red Blood Count 3.38 M/mcL (3.82-4.97); Segmented Neutrophils % 86.2 %
[2017-08-16 05:09] LABS: Amylase 95 Units/L (25-125); Lipase 188 Units/L (8-78)
[2017-08-16 05:11] LABS: Alanine Aminotransferase 12 Units/L (0-55); Albumin 2.3 g/dL (3.5-5.0); Albumin/Globulin Ratio 0.9 (1.1-2.2); Alkaline Phosphatase 97 Units/L (38-126); Aspartate Amino Transferase 21 Units/L (5-34); BUN/Creatinine Ratio 15 (6-26); Bilirubin,Total 0.6 mg/dL (0.2-1.2); Blood Urea Nitrogen 9 mg/dL (7-20); Calcium 8.2 mg/dL (8.6-10.8); Carbon Dioxide 29 mEq/L (19-29); Chloride 104 mEq/L (98-109); Globulin 2.6 g/dL (2.4-3.5); Glucose 121 mg/dL (70-99); Osmolality,Calculated 288 (280-300); Potassium 2.9 mEq/L (3.5-4.5); Sodium 139 mEq/L (136-145); Total Protein 4.9 g/dL (6.0-8.3); eGFR For African Americans > 60 (> 60); eGFR For Non-African Americans > 60 (> 60)
[2017-08-16] MEDS ORDERED: Potassium Chloride 20 MEQ, Lidocaine 1% 2 ML in D5% in Water 250 ML IVPB ONE (05:53)
[2017-08-16] MEDS: *HR* OxyCODONE Immed Rel 5 MG TABLET PO PRN ×2 (07:30→19:38)
[2017-08-16] MEDS: Miconazole w/zinc oxide&karaya 92 APPL/92 GM TUBE TP SCH ×2 (07:43→19:38)
[2017-08-16] MEDS: *HR* Heparin 5,000 UNIT/ML VIAL SQ SCH ×3 (07:50→23:43)
[2017-08-16] MEDS: Loratadine 10 MG TABLET PO SCH (07:50)
[2017-08-16] MEDS ORDERED: Potassium Chloride 40 MEQ, Lidocaine 1% 2 ML in D5% in Water 500 ML IVPB ONE (10:18)
[2017-08-16] MEDS: Benzonatate 100 MG CAPSULE PO PRN ×2 (11:05→19:38)
[2017-08-16] MEDS: *HR* HYDROmorphone (PF) 1 MG/ML SYRINGE IVP PRN ×2 (11:05→15:45)
[2017-08-16] MEDS ORDERED: 0.9 % Sodium Chloride 500 ML ONE (11:05)
[2017-08-16] MEDS: Levofloxacin 500 MG/100 ML 500 MG/100 ML BAG IVPB SCH (12:22)
--- NOTE | 2017-08-16 16:40 | Internal Med Progress Note ---
Date of Encounter: 08/16/17 Time of Encounter: 16:37 - Assessment and plan (1) Pancreatitis Current Visit: Yes Status: Acute Qualifiers: Chronicity: acute Pancreatitis type: unspecified pancreatitis type Acute pancreatitis complication: unspecified Qualified Code(s): K85.90 - Acute pancreatitis without necrosis or infection, unspecified (2) Metastatic cancer Current Visit: Yes Status: Acute (3) Sacral decubitus ulcer Current Visit: Yes Status: Chronic Qualifiers: Pressure ulcer stage: unspecified pressure ulcer stage Qualified Code(s): L89.159 - Pressure ulcer of sacral region, unspecified stage (4) AAA (abdominal aortic aneurysm) Current Visit: Yes Status: Resolved Qualifiers: Presence of rupture: without rupture Qualified Code(s): I71.4 - Abdominal aortic aneurysm, without rupture (5) COPD (chronic obstructive pulmonary disease) Current Visit: Yes Status: Chronic Qualifiers: COPD type: emphysema Emphysema type: unspecified Qualified Code(s): J43.9 - Emphysema, unspecified (6) Right shoulder pain Current Visit: Yes Status: Acute Qualifiers: Chronicity: unspecified Qualified Code(s): M25.511 - Pain in right shoulder (7) UTI (urinary tract infection) Current Visit: Yes Status: Acute Qualifiers: Hematuria presence: without hematuria Qualified Code(s): N39.0 - Urinary tract infection, site not specified - Subjective Interval history: Patient was admitted yesterday for pancreatitis. Incidental finding of metastatic cancer in abdomen. Discussed the case with oncology this morning and apparently we need liver biopsy. Liver biopsy cannot be done today as patient is on subcutaneous Lovenox and therefore Lovenox will be on hold and it will be done tomorrow. Patient also has sacral decubitus ulcer and COPD. She thinks her abdominal pain is better. On examination her belly is soft but is still left upper quadrant tenderness. The amylase lipase CBC CMP ordered. Patient family is available and discuss the issues with and provided all the answers 08/14 patient complaining of right shoulder pain which according to her has been going on for last few weeks. Concern if it is dislocated but as I checked it she has good range of motion though very painful. I am concerned about metastatic disease therefore will order a whole body bone scan. I will also order x-ray shoulder to rule out any dislocation. Still quite tender in her belly and her amylase and lipase are still up as a matter fact lipase has gone up this morning. I think we should continue her nothing by mouth for now. Discussed with the oncology and noted the issues regarding biopsy. Final report is pending. Urine showed leukocytes but cultures are negative. Asymptomatic. Family updated. 08/15 pain is better controlled now. X-ray showed no dislocation but a lesion in Cricoid process question nondisplaced fracture. Bone scan is still pending. Abdominal pain has been reduced but is still left upper quadrant tenderness though overall abdomen is much softer and without tenderness. No rebound tenderness. Start full liquids. Both amylase and lipase are down now. Biopsy report is pending. Chest examination showed bilateral rhonchi. Will order an x -ray and to stop IV fluids. IV Lasix 20 mg 1. UA showed some leukocytes and somewhat concerned about lungs therefore IV Levaquin will be added for now. 08/16 patient was seen this morning. Complaining of pain. Bone scan showed multiple lytic lesions/metastasis and right ilium and posterior right ribs. The shoulder lesion is still unclassified. In any case pain is controlled with narcotic medication. Abdomen is much better and lipase amylase have gone down and we have restarted her on soft diet. Biopsies pending oncology is following her. She has malignant process involving lungs and liver as well as bone. - Constitutional Vitals: Temp Pulse Resp BP Pulse Ox 97.5 F L 104 20 132/73 93 08/16/17 15:13 08/16/17 15:13 08/16/17 16:00 08/16/17 15:13 08/16/17 16:00 General appearance: Present: cooperative, A&O X 3, pleasant, no acute distress, underweight, answers questions appropriately - Head Head exam: Present: atraumatic, normocephalic - Eye Eye exam: Present: PERRL, conjuntiva pink, sclera anicteric Pupils: Present: PERRL - Neck Neck exam general surgery: Present: supple, trachea midline. Absent: lymphadenopathy - Respiratory Respiratory exam: Present: CTAB. Absent: accessory muscle use, rales, rhonchi, wheezes - Cardiovascular Cardiovascular exam: Present: RRR, +S1, +S2. Absent: diastolic murmur, gallop, rubs, systolic murmur - GI/Abdominal GI/Abdominal exam: Present: normal bowel sounds, soft, no peritoneal signs. Absent: distended, tenderness - Extremities Exam Extremities exam: Present: warm, radial pulses palpable and symmetrical. Absent : calf tenderness, cyanotic, pedal edema - Neurological Exam Neurological exam: Present: CN II-XII intact, oriented X3, no focal deficits. Absent: pronater drift, facial droop, speech deficit - Skin Skin exam: Present: dry, intact Internal Medicine: Result - Labs CBC & Chem 7: 08/16/17 04:36 08/16/17 04:36 Labs: Short CBC 08/16/17 Range/Units 04:36 WBC 6.9 (4.3-11.1) K/mcL Hgb 10.3 L (11.5-15.4) g/dL Hct 32.6 L (35.3-44.9) % Plt Count 164 (140-400) K/mcL Neutrophils # 6.0 (1.6-8.9) K/mcL BMP 08/16/17 04:36 Sodium 139 Potassium 2.9 L D Chloride 104 Carbon Dioxide 29 BUN 9 Creatinine 0.61 Glucose 121 H Calcium 8.2 L Liver Function 08/16/17 Range/Units 04:36 Total Bilirubin 0.6 (0.2-1.2) mg/dL AST 21 (5-34) Units/L ALT 12 (0-55) Units/L Alkaline Phosphatase 97 (38-126) Units/L Albumin 2.3 L (3.5-5.0) g/dL - ABG Interpretation ABG results: PT/INR, D-dimer PT 10.9 Seconds (9.4-12.1) 08/13/17 05:39 Consult Discharge Plan - Plan Referrals: Shakira Costello MD [Primary Care Provider] -
[2017-08-17 03:03] LABS: Basophils % 0.1 %; Eosinophils % 0.4 %; Hematocrit 32.5 % (35.3-44.9); Hemoglobin 10.3 g/dL (11.5-15.4); Immature Granulocytes % 1.1 % (0-4); Lymphocytes # 0.5 K/mcL (0.6-4.6); Lymphocytes % 6.7 %; Mean Corpuscular HGB Conc 31.7 g/dL (31.6-35.5); Mean Corpuscular Hemoglobin 30.4 pg (28.0-33.3); Mean Corpuscular Volume 95.9 fL (83.0-100.0); Mean Platelet Volume 10.4 fL (9.4-12.4); Monocytes # 0.4 K/mcL (0.0-1.3); Monocytes % 5.4 %; Neutrophils # 6.8 K/mcL (1.6-8.9); Platelet Count 169 K/mcL (140-400); Red Blood Count 3.39 M/mcL (3.82-4.97); Red Cell Distribution Width 16.1 % (11.5-14.5); Segmented Neutrophils % 86.3 %
[2017-08-17] MEDS: Ipratropium/Albuterol Neb 3 ML IH SCH ×4 (03:17→21:50)
[2017-08-17 03:22] LABS: Amylase 122 Units/L (25-125); Lipase 253 Units/L (8-78)
[2017-08-17 03:23] LABS: Alanine Aminotransferase 16 Units/L (0-55); Albumin 2.1 g/dL (3.5-5.0); Albumin/Globulin Ratio 0.7 (1.1-2.2); Alkaline Phosphatase 89 Units/L (38-126); Aspartate Amino Transferase 20 Units/L (5-34); BUN/Creatinine Ratio 15 (6-26); Bilirubin,Total 0.4 mg/dL (0.2-1.2); Blood Urea Nitrogen 10 mg/dL (7-20); Calcium 8.3 mg/dL (8.6-10.8); Carbon Dioxide 25 mEq/L (19-29); Chloride 106 mEq/L (98-109); Globulin 2.9 g/dL (2.4-3.5); Glucose 123 mg/dL (70-99); Osmolality,Calculated 290 (280-300); Potassium 3.8 mEq/L (3.5-4.5); Sodium 140 mEq/L (136-145); eGFR For African Americans > 60 (> 60); eGFR For Non-African Americans > 60 (> 60)
[2017-08-17] MEDS: *HR* HYDROmorphone (PF) 1 MG/ML SYRINGE IVP PRN ×4 (04:10→21:46)
[2017-08-17 08:37] LABS: Cancer Antigen 27.29 15.2 U/mL (0.0-40.0)
[2017-08-17] MEDS: *HR* Heparin 5,000 UNIT/ML VIAL SQ SCH ×2 (09:00→16:34)
[2017-08-17] MEDS: Miconazole w/zinc oxide&karaya 92 APPL/92 GM TUBE TP SCH ×2 (09:01→21:46)
[2017-08-17] MEDS: Loratadine 10 MG TABLET PO SCH (09:01)
[2017-08-17] MEDS: dilTIAZem HCl 100 MG in D5% in Water 50 ML IVC SCH ×2 (09:47→18:03)
[2017-08-17] MEDS ORDERED: 0.9 % Sodium Chloride 500 ML ONE (10:58)
[2017-08-17] MEDS ORDERED: *HR* Metoprolol 5 MG/5 ML VIAL IVP ONE (13:07)
[2017-08-17] MEDS: levoFLOXacin 500 MG TABLET PO SCH (13:40)
[2017-08-17] MEDS: *HR* OxyCODONE Immed Rel 5 MG TABLET PO PRN (13:45)
[2017-08-17] MEDS: Furosemide 20 MG/2 ML VIAL IVP SCH (15:03)
[2017-08-17] MEDS: Piperacillin/Tazobactam 3.375 GM in D5% in Water 50 ML IVPB SCH (16:32)
--- NOTE | 2017-08-17 17:12 | Internal Med Progress Note ---
Date of Encounter: 08/17/17 Time of Encounter: 17:08 - Assessment and plan (1) Pancreatitis Current Visit: Yes Status: Acute Qualifiers: Chronicity: acute Pancreatitis type: unspecified pancreatitis type Acute pancreatitis complication: unspecified Qualified Code(s): K85.90 - Acute pancreatitis without necrosis or infection, unspecified (2) Metastatic cancer Current Visit: Yes Status: Acute (3) Sacral decubitus ulcer Current Visit: Yes Status: Chronic Qualifiers: Pressure ulcer stage: unspecified pressure ulcer stage Qualified Code(s): L89.159 - Pressure ulcer of sacral region, unspecified stage (4) AAA (abdominal aortic aneurysm) Current Visit: Yes Status: Resolved Qualifiers: Presence of rupture: without rupture Qualified Code(s): I71.4 - Abdominal aortic aneurysm, without rupture (5) COPD (chronic obstructive pulmonary disease) Current Visit: Yes Status: Chronic Qualifiers: COPD type: emphysema Emphysema type: unspecified Qualified Code(s): J43.9 - Emphysema, unspecified (6) Right shoulder pain Current Visit: Yes Status: Acute Qualifiers: Chronicity: unspecified Qualified Code(s): M25.511 - Pain in right shoulder (7) UTI (urinary tract infection) Current Visit: Yes Status: Acute Qualifiers: Hematuria presence: without hematuria Qualified Code(s): N39.0 - Urinary tract infection, site not specified (8) Pneumonia Current Visit: Yes Status: Acute Qualifiers: Pneumonia type: aspiration pneumonia Laterality: bilateral Lung location : lower lobe of lung Qualified Code(s): J69.0 - Pneumonitis due to inhalation of food and vomit (9) New onset atrial fibrillation Current Visit: Yes Status: Acute - Subjective Interval history: Patient was admitted yesterday for pancreatitis. Incidental finding of metastatic cancer in abdomen. Discussed the case with oncology this morning and apparently we need liver biopsy. Liver biopsy cannot be done today as patient is on subcutaneous Lovenox and therefore Lovenox will be on hold and it will be done tomorrow. Patient also has sacral decubitus ulcer and COPD. She thinks her abdominal pain is better. On examination her belly is soft but is still left upper quadrant tenderness. The amylase lipase CBC CMP ordered. Patient family is available and discuss the issues with and provided all the answers 08/14 patient complaining of right shoulder pain which according to her has been going on for last few weeks. Concern if it is dislocated but as I checked it she has good range of motion though very painful. I am concerned about metastatic disease therefore will order a whole body bone scan. I will also order x-ray shoulder to rule out any dislocation. Still quite tender in her belly and her amylase and lipase are still up as a matter fact lipase has gone up this morning. I think we should continue her nothing by mouth for now. Discussed with the oncology and noted the issues regarding biopsy. Final report is pending. Urine showed leukocytes but cultures are negative. Asymptomatic. Family updated. 08/15 pain is better controlled now. X-ray showed no dislocation but a lesion in Cricoid process question nondisplaced fracture. Bone scan is still pending. Abdominal pain has been reduced but is still left upper quadrant tenderness though overall abdomen is much softer and without tenderness. No rebound tenderness. Start full liquids. Both amylase and lipase are down now. Biopsy report is pending. Chest examination showed bilateral rhonchi. Will order an x -ray and to stop IV fluids. IV Lasix 20 mg 1. UA showed some leukocytes and somewhat concerned about lungs therefore IV Levaquin will be added for now. 08/16 patient was seen this morning. Complaining of pain. Bone scan showed multiple lytic lesions/metastasis and right ilium and posterior right ribs. The shoulder lesion is still unclassified. In any case pain is controlled with narcotic medication. Abdomen is much better and lipase amylase have gone down and we have restarted her on soft diet. Biopsies pending oncology is following her. She has malignant process involving lungs and liver as well as bone. 08/17/17 patient denies any chest pain shortness of breath. Her pain is controlled. Patient is here with her workup for malignancy and CT abdomen and chest showed just tender lymphadenopathy and the liver nodules as well as lytic lesions involving right iliac crest and right-sided ribs. Also has right shoulder pain with a lesion which is undefined on bone scan. She has developed bilateral pneumonia for which she is on IV Zosyn and Levaquin. Also noted to have new-onset atrial fibrillation and congestive heart failure. She has been started on IV Cardizem and IV Lasix and echocardiogram pending. On admission she had CT chest which did not show any PE. However if it is difficult to control her heart rate might have to repeat CTA on neck ultrasound. Patient is high risk for DVT PE. Her anticoagulation would remain a bit question with presence of metastatic disease. A biopsy has been performed and we are waiting for the results. Significant rhonchi on chest examination today and I have given her IV Lasix but her blood pressure is trending low. I am waiting for echocardiogram to see if I can try digoxin than Cardizem. Need cardiology if does not improve. Will order a leg ultrasound.. - Constitutional Vitals: Temp Pulse Resp BP Pulse Ox 98.5 F 73 20 91/48 87 08/17/17 16:22 08/17/17 16:22 08/17/17 16:22 08/17/17 16:22 08/17/17 16:22 General appearance: Present: cooperative, A&O X 3, pleasant, no acute distress, underweight, answers questions appropriately - Head Head exam: Present: atraumatic, normocephalic - Eye Eye exam: Present: PERRL, conjuntiva pink, sclera anicteric Pupils: Present: PERRL - Neck Neck exam general surgery: Present: supple, trachea midline. Absent: lymphadenopathy - Respiratory Respiratory exam: Present: decreased breath sounds, rhonchi. Absent: accessory muscle use, rales, wheezes - Cardiovascular Cardiovascular exam: Present: RRR, +S1, +S2. Absent: diastolic murmur, gallop, rubs, systolic murmur - GI/Abdominal GI/Abdominal exam: Present: normal bowel sounds, soft, no peritoneal signs. Absent: distended, tenderness - Extremities Exam Extremities exam: Present: warm, radial pulses palpable and symmetrical. Absent : calf tenderness, cyanotic, pedal edema - Neurological Exam Neurological exam: Present: CN II-XII intact, oriented X3, no focal deficits. Absent: pronater drift, facial droop, speech deficit - Skin Skin exam: Present: dry, intact Internal Medicine: Result - Labs CBC & Chem 7: 08/17/17 02:54 08/17/17 02:54 Labs: Short CBC 08/17/17 Range/Units 02:54 WBC 7.9 (4.3-11.1) K/mcL Hgb 10.3 L (11.5-15.4) g/dL Hct 32.5 L (35.3-44.9) % Plt Count 169 (140-400) K/mcL Neutrophils # 6.8 (1.6-8.9) K/mcL BMP 08/17/17 02:54 Sodium 140 Potassium 3.8 Chloride 106 Carbon Dioxide 25 BUN 10 Creatinine 0.67 Glucose 123 H Calcium 8.3 L Liver Function 08/17/17 Range/Units 02:54 Total Bilirubin 0.4 (0.2-1.2) mg/dL AST 20 (5-34) Units/L ALT 16 (0-55) Units/L Alkaline Phosphatase 89 (38-126) Units/L Albumin 2.1 L (3.5-5.0) g/dL - ABG Interpretation ABG results: PT/INR, D-dimer PT 10.9 Seconds (9.4-12.1) 08/13/17 05:39 - Impressions Impressions Shoulder X-Ray 08/14/17 15:31 IMPRESSION: 1. Possible subtle lucency in the coracoid process, may represent a subtle nondisplaced fracture. 2. No other acute abnormality of the shoulder identified. The humeral head is well seated within the glenoid fossa. 3. Mild right rotator cuff calcific tendinopathy. 4. Metastatic disease of the chest again identified. D/ /14/2017 20:40:08 Oziel Sarmiento MD / [facility] Interpreting Provider: Oziel Sarmiento MD Consult Discharge Plan - Plan Referrals: Shakira Costello MD [Primary Care Provider] - (computers at the office down , will call madeline afterwards...)
[2017-08-18] MEDS: *HR* Heparin 5,000 UNIT/ML VIAL SQ SCH ×4 (00:56→23:33)
[2017-08-18] MEDS: Piperacillin/Tazobactam 3.375 GM in D5% in Water 50 ML IVPB SCH ×4 (00:57→23:34)
[2017-08-18] MEDS: dilTIAZem HCl 100 MG in D5% in Water 50 ML IVC SCH ×2 (02:14→08:47)
[2017-08-18 04:09] LABS: Basophils % 0.3 %; Eosinophils % 0.1 %; Hematocrit 29.9 % (35.3-44.9); Hemoglobin 9.4 g/dL (11.5-15.4); Immature Granulocytes % 1.3 % (0-4); Lymphocytes # 0.4 K/mcL (0.6-4.6); Lymphocytes % 5.1 %; Mean Corpuscular HGB Conc 31.4 g/dL (31.6-35.5); Mean Corpuscular Hemoglobin 30.4 pg (28.0-33.3); Mean Corpuscular Volume 96.8 fL (83.0-100.0); Mean Platelet Volume 10.6 fL (9.4-12.4); Monocytes # 0.4 K/mcL (0.0-1.3); Monocytes % 4.5 %; Neutrophils # 6.8 K/mcL (1.6-8.9); Platelet Count 163 K/mcL (140-400); Red Blood Count 3.09 M/mcL (3.82-4.97); Red Cell Distribution Width 16.5 % (11.5-14.5); Segmented Neutrophils % 88.7 %
[2017-08-18 04:14] LABS: Alanine Aminotransferase 19 Units/L (0-55); Albumin 1.9 g/dL (3.5-5.0); Albumin/Globulin Ratio 0.6 (1.1-2.2); Alkaline Phosphatase 94 Units/L (38-126); Amylase 111 Units/L (25-125); Aspartate Amino Transferase 21 Units/L (5-34); BUN/Creatinine Ratio 23 (6-26); Bilirubin,Total 0.5 mg/dL (0.2-1.2); Blood Urea Nitrogen 17 mg/dL (7-20); Carbon Dioxide 28 mEq/L (19-29); Chloride 104 mEq/L (98-109); Glucose 134 mg/dL (70-99); Lipase 209 Units/L (8-78); Osmolality,Calculated 292 (280-300); Sodium 139 mEq/L (136-145); Total Protein 4.9 g/dL (6.0-8.3); eGFR For African Americans > 60 (> 60); eGFR For Non-African Americans > 60 (> 60)
[2017-08-18] MEDS: Ipratropium/Albuterol Neb 3 ML IH SCH ×4 (04:37→21:00)
[2017-08-18] MEDS: *HR* HYDROmorphone (PF) 1 MG/ML SYRINGE IVP PRN ×2 (06:54→11:30)
[2017-08-18] MEDS: Furosemide 20 MG/2 ML VIAL IVP SCH (08:30)
[2017-08-18] MEDS: Loratadine 10 MG TABLET PO SCH (08:30)
[2017-08-18] MEDS: Miconazole w/zinc oxide&karaya 92 APPL/92 GM TUBE TP SCH ×2 (08:33→19:59)
[2017-08-18] MEDS ORDERED: 0.9 % Sodium Chloride 500 ML ONE (11:23)
[2017-08-18] MEDS: levoFLOXacin 500 MG TABLET PO SCH (12:41)
--- NOTE | 2017-08-18 13:40 | Oncology Inp Progress Note ---
Date of Encounter: 08/18/17 Time of Encounter: 12:00 (1) Metastatic cancer Current Visit: Yes Status: Acute Assessment and plan: Patient with lymphadenopathy in the mediastinum, likely related to primary lung malignancy versus lymphoma, status post CT-guided biopsy of the right iliac bony lesion. Discussed with pathologist-awaiting results Her pain is under control with narcotics. Palliative RT to rt iliac bone lesion to be considered. Systemic Rx after final pathology Discussed plan with patient and family bedside. Oncology: Subj Interval history: Patient is resting in bed, not in ac pain or distress. FAmily bed side - Constitutional Vitals: Vital Signs Temp Pulse Resp BP Pulse Ox 08/18/17 12:15 98.8 F 08/18/17 12:11 98.8 F 101 18 120/60 92 08/18/17 12:00 97.5 F L 111 17 124/56 89 08/18/17 10:43 17 89 08/18/17 07:25 89 08/18/17 07:09 98.4 F 98 17 136/72 89 08/18/17 03:31 97.9 F 106 17 148/63 89 08/17/17 23:33 98.5 F 100 16 104/64 89 08/17/17 21:52 26 86 08/17/17 19:50 98.3 F 100 16 93/55 89 08/17/17 16:22 98.5 F 73 20 91/48 87 Intake and Output 08/17/17 08/18/17 08/18/17 23:59 07:59 15:59 Intake Total 88.9 / 88.9 150 / 150 50 / 50 Output Total 500 / 500 200 / 200 200 / 200 Balance -411.1 / -411.1 -50 / -50 -150 / -150 Intake: IV Fluids 88.9 / 88.9 150 / 150 50 / 50 Cardizem 100 MG In Dextrose 5% 38.9 / 38.9 50 / 50 50 / 50 (ADD-[place]) 50 ML @ 5 MG/HR 2 .5 mls/hr IVC .Q20H [facility]PH[facility] Rx#: [id number] Zosyn 3.375 GM In Dextrose 5% ( 50 / 50 100 / 100 ADD-[place]) 50 ML @ 12.5 mls/ hr IVPB Q8HR [facility]INE Rx#:[id number] Output: Urine 500 / 500 200 / 200 200 / 200 Other: Weight 51.7 kg Patient Weight 08/18/17 23:59 Weight 51.7 kg General appearance: no acute distress - Head Head exam: Present: atraumatic, normal inspection - Eye Eye exam: Present: EOMI, sclera anicteric - Neck Neck exam: Present: full ROM - Respiratory Respiratory exam: Present: decreased breath sounds - Cardiovascular Cardiovascular exam: Present: +S1, +S2 - GI/Abdominal GI/Abdominal exam: Present: normal bowel sounds, soft - Neurological Exam Neurological exam: Present: alert, CN II-XII intact, oriented X3, no focal deficits - Psychiatric Psychiatric exam: Present: normal affect Oncology: Obj Data - Labs CBC & Chem 7: 08/18/17 03:30 08/18/17 03:30 Labs: Laboratory Results - last 24 hr 08/18/17 08/18/17 08/18/17 03:30 03:30 03:30 WBC 7.7 RBC 3.09 L Hgb 9.4 L Hct 29.9 L MCV 96.8 MCH 30.4 MCHC 31.4 L RDW 16.5 H Plt Count 163 MPV 10.6 Immature Gran % 1.3 Seg Neutrophils % 88.7 Lymphocytes % 5.1 Monocytes % 4.5 Eosinophils % 0.1 Basophils % 0.3 Neutrophils # 6.8 Lymphocytes # 0.4 L Monocytes # 0.4 Eosinophils # 0.0 Basophils # 0.0 Sodium 139 Potassium 3.0 L Chloride 104 Carbon Dioxide 28 BUN 17 Creatinine 0.74 Est GFR ( Amer) > 60 Est GFR (Non-Af Amer) > 60 BUN/Creatinine Ratio 23 Glucose 134 H Calculated Osmolality 292 Calcium 8.0 L Total Bilirubin 0.5 AST 21 ALT 19 Alkaline Phosphatase 94 Serum Total Protein 4.9 L Albumin 1.9 L Globulin 3.0 Albumin/Globulin Ratio 0.6 L Amylase 111 Lipase 209 H TSH 1.251 - Impressions Impressions Echocardiogram 08/18/17 17:06 Impressions: LVEF 55-60%. Normal LV chamber size, wall thickness and function. Mild left ventricular diastolic dysfunction. Atypical septal motion of unclear etiology. Normal right ventricular structure and function. Mild mitral regurgitation. Moderate pulmonary hypertension. Estimated RVSP is 50 mmHg. Left Ventricular Wall Motion: Rest Echo Findings All wall segments showed normal motion. Findings: Study Quality * Technically adequate exam. ECG Findings * Normal sinus rhythm. Left Ventricle * LVEF 55-60%. * Normal LV chamber size, wall thickness and function. * Mild left ventricular diastolic dysfunction. * Atypical septal motion of unclear etiology. Right Ventricle * Normal right ventricular structure and function. Left Atrium * Mildly dilated left atrium. Right Atrium * Mildly dilated right atrium. Aortic Valve * Aortic valve not well visualized. * Mildly calcified aortic valve leaflets. * No aortic regurgitation. * No aortic stenosis. Mitral Valve * Mitral valve not well visualized. * Mild mitral regurgitation. * No mitral stenosis. Tricuspid Valve * Normal tricuspid valve structure and function. * Trace tricuspid regurgitation. * Moderate pulmonary hypertension. * Estimated RVSP is 50 mmHg. * Estimated RA pressure is 5 mmHg. Pulmonic Valve * Pulmonic valve not well visualized. * No pulmonic regurgitation. Aorta * Normally sized aortic root. Pericardium * The pericardium appears normal. IVC * Normal IVC dimensions and inspiratory collapse. Pulmonary Artery * Normal visualized portions of the main pulmonary artery. - ABG Interpretation ABG results: PT/INR, D-dimer PT 10.9 Seconds (9.4-12.1) 08/13/17 05:39 Consult Discharge Plan - Plan Referrals: Shakira Costello MD [Primary Care Provider] - 08/26/17 11:00 am (computers at the office down, will call madeline afterwards...)
--- NOTE | 2017-08-18 14:19 | Internal Med Progress Note ---
Date of Encounter: 08/18/17 Time of Encounter: 14:14 - Assessment and plan (1) Acute respiratory failure with hypoxia Current Visit: Yes Status: Acute Assessment and plan: Still on 3 lit O2 mostly due to metastatic disease and b/l Pneumonia Cont close monitoring cont duoneb no need of steroids may need home O2 eval (2) Pneumonia Current Visit: Yes Status: Acute Assessment and plan: Reviewed CXR from 08/15/17 So far afebrile mostly bacterial pneumonia Due to her immuno compromised state will cont broad spec abx coverage Zosyn # 3/ 7 and Levofloxacin # 6/7 will try to deescalate her abx in AM Qualifiers: Pneumonia type: aspiration pneumonia Laterality: bilateral Lung location : lower lobe of lung Qualified Code(s): J69.0 - Pneumonitis due to inhalation of food and vomit (3) Acute exacerbation of chronic obstructive airways disease Current Visit: No Status: Acute Assessment and plan: cont Duoneb and O2 No need of steroids (4) Metastatic cancer Current Visit: Yes Status: Acute Assessment and plan: No sure primary malignancy from Lung vs Lymphoma s/p Rt iliac crest bone lesion biopsy waiting on path results Heme onc on board (5) Sacral decubitus ulcer Current Visit: Yes Status: Chronic Assessment and plan: cont local wound care Qualifiers: Pressure ulcer stage: unspecified pressure ulcer stage Qualified Code(s): L89.159 - Pressure ulcer of sacral region, unspecified stage (6) New onset atrial fibrillation Current Visit: Yes Status: Acute Assessment and plan: triggered by Resp failure and her severe physical deconditioning state Was on Cardizem gtt for 4 days.. HR still barely controlled Reviewed her 2 D Echo - showed LVEF 55-60 %, Mild LV Distolic dysfunction so swithced to PO Cardizem also started her on Metoprolol 25mg BID for anti coag - CHADSVASC score is 6.. She would get benefit with anticoagulation will consult card for further eval also will communicate with Heme Onc - regarding further plan of care on her metastatic disease mean while cont ASA 81mg (7) Acute diastolic CHF (congestive heart failure) Current Visit: Yes Status: Acute Assessment and plan: new onset CHF Improved will switch to pO Lasix - Subjective Interval history: Ms. Gibbs is a 82 year old female with medical hx of aortic aneurysm with repair done in February 2017, COPD not home O2 dependent, and CVA presents from the ED with chief complaint of abdominal pain of the right lower quadrant which she stated has been occurring intermittently over the past several months that has become worse over the past week. CT scan showed evidence of metastatic cancer in the lung, liver, and several lymph nodes. Her bone scan showed Rt iliac crest lesion, for which she had biopsy done here on 08/14/2017. Today pt is alert, awake and O x 3. Denied any CP. Still has SOB and LEI. Currently on 3 lit O2. Her pain is also tolerable with current pain medication. Pt is still on cardizem gtt. - Constitutional Vitals: Temp Pulse Resp BP Pulse Ox 98.8 F 101 18 120/60 92 08/18/17 12:15 08/18/17 12:11 08/18/17 12:11 08/18/17 12:11 08/18/17 12:11 General appearance: Present: cooperative, A&O X 3, no acute distress, underweight, answers questions appropriately - Head Head exam: Present: atraumatic, normal inspection - Neck Neck exam general surgery: Present: supple - Respiratory Respiratory exam: Present: decreased breath sounds, wheezes (mild), tachypnea ( mild). Absent: rales, respiratory distress, rhonchi - Cardiovascular Cardiovascular exam: Present: irregular rhythm, +S1, +S2. Absent: systolic murmur - GI/Abdominal GI/Abdominal exam: Present: distended, normal bowel sounds, soft. Absent: rebound, rigid, tenderness - Extremities Exam Extremities exam: Present: pedal edema (trace..improving edema). Absent: calf tenderness, tenderness - Back Exam Back exam: Absent: CVA tenderness (L), CVA tenderness (R) - Neurological Exam Neurological exam: Present: alert, oriented X3 - Psychiatric Psychiatric exam: Present: normal affect, normal mood Internal Medicine: Result - Labs CBC & Chem 7: 08/18/17 03:30 08/18/17 03:30 Labs: Short CBC 08/18/17 Range/Units 03:30 WBC 7.7 (4.3-11.1) K/mcL Hgb 9.4 L (11.5-15.4) g/dL Hct 29.9 L (35.3-44.9) % Plt Count 163 (140-400) K/mcL Neutrophils # 6.8 (1.6-8.9) K/mcL BMP 08/18/17 03:30 Sodium 139 Potassium 3.0 L Chloride 104 Carbon Dioxide 28 BUN 17 Creatinine 0.74 Glucose 134 H Calcium 8.0 L Liver Function 08/18/17 Range/Units 03:30 Total Bilirubin 0.5 (0.2-1.2) mg/dL AST 21 (5-34) Units/L ALT 19 (0-55) Units/L Alkaline Phosphatase 94 (38-126) Units/L Albumin 1.9 L (3.5-5.0) g/dL - ABG Interpretation ABG results: PT/INR, D-dimer PT 10.9 Seconds (9.4-12.1) 08/13/17 05:39 - Impressions Impressions Echocardiogram 08/18/17 17:06 Impressions: LVEF 55-60%. Normal LV chamber size, wall thickness and function. Mild left ventricular diastolic dysfunction. Atypical septal motion of unclear etiology. Normal right ventricular structure and function. Mild mitral regurgitation. Moderate pulmonary hypertension. Estimated RVSP is 50 mmHg. Left Ventricular Wall Motion: Rest Echo Findings All wall segments showed normal motion. Findings: Study Quality * Technically adequate exam. ECG Findings * Normal sinus rhythm. Left Ventricle * LVEF 55-60%. * Normal LV chamber size, wall thickness and function. * Mild left ventricular diastolic dysfunction. * Atypical septal motion of unclear etiology. Right Ventricle * Normal right ventricular structure and function. Left Atrium * Mildly dilated left atrium. Right Atrium * Mildly dilated right atrium. Aortic Valve * Aortic valve not well visualized. * Mildly calcified aortic valve leaflets. * No aortic regurgitation. * No aortic stenosis. Mitral Valve * Mitral valve not well visualized. * Mild mitral regurgitation. * No mitral stenosis. Tricuspid Valve * Normal tricuspid valve structure and function. * Trace tricuspid regurgitation. * Moderate pulmonary hypertension. * Estimated RVSP is 50 mmHg. * Estimated RA pressure is 5 mmHg. Pulmonic Valve * Pulmonic valve not well visualized. * No pulmonic regurgitation. Aorta * Normally sized aortic root. Pericardium * The pericardium appears normal. IVC * Normal IVC dimensions and inspiratory collapse. Pulmonary Artery * Normal visualized portions of the main pulmonary artery. Consult Discharge Plan - Plan Referrals: Shakira Costello MD [Primary Care Provider] - 08/26/17 11:00 am (computers at the office down, will call madeline afterwards...)
[2017-08-18] MEDS: *HR* OxyCODONE ER (12 HR) 10 MG TABLET PO SCH ×2 (14:26→19:59)
[2017-08-18] MEDS: Aspirin Enteric Coated 81 MG Tablet PO SCH (15:01)
[2017-08-18] MEDS ORDERED: Potassium Chloride Elixir 20 MEQ/15 ML UDC PO ONE (18:00)
[2017-08-18] MEDS ORDERED: *HR* OxyCODONE ER (12 HR) 10 MG TABLET PO SCH (21:00)
[2017-08-19] MEDS: Ipratropium/Albuterol Neb 3 ML IH SCH ×4 (03:43→22:54)
[2017-08-19 08:19] LABS: Basophils % 0.1 %; Hematocrit 30.5 % (35.3-44.9); Hemoglobin 9.6 g/dL (11.5-15.4); Immature Granulocytes % 0.7 % (0-4); Lymphocytes # 0.4 K/mcL (0.6-4.6); Lymphocytes % 4.1 %; Mean Corpuscular HGB Conc 31.5 g/dL (31.6-35.5); Mean Corpuscular Hemoglobin 30.4 pg (28.0-33.3); Mean Corpuscular Volume 96.5 fL (83.0-100.0); Mean Platelet Volume 10.2 fL (9.4-12.4); Monocytes # 0.4 K/mcL (0.0-1.3); Monocytes % 4.2 %; Neutrophils # 7.8 K/mcL (1.6-8.9); Platelet Count 190 K/mcL (140-400); Red Blood Count 3.16 M/mcL (3.82-4.97); Red Cell Distribution Width 16.7 % (11.5-14.5); Segmented Neutrophils % 90.9 %
[2017-08-19 08:33] LABS: BUN/Creatinine Ratio 23 (6-26); Blood Urea Nitrogen 17 mg/dL (7-20); Calcium 8.6 mg/dL (8.6-10.8); Carbon Dioxide 28 mEq/L (19-29); Chloride 106 mEq/L (98-109); Glucose 132 mg/dL (70-99); Magnesium 1.5 mg/dL (1.6-2.6); Osmolality,Calculated 297 (280-300); Potassium 3.8 mEq/L (3.5-4.5); Sodium 142 mEq/L (136-145); eGFR For African Americans > 60 (> 60); eGFR For Non-African Americans > 60 (> 60)
--- NOTE | 2017-08-19 09:25 | Cardiology Consult Note ---
<Nelson Mtz - Last Filed: 08/19/17 10:38> Date of Encounter: 08/19/17 Time of Encounter: 09:24 Assessment and Plan (1) New onset atrial fibrillation Current Visit: Yes Status: Acute Vitals signs stable. HR down to 80s today EKG shows no ischemic changes. NSR today. Continue telemetry Cardizem 60mg q8hrs with Lopressor 25mg BID. No changes at this time. Kidney function normal ECHO: EF 55-60%, normal LV and RV motion with mild diastolic dysfunction. Atypical septal motion, mild MR and moderate pulmonary HTN. No thrombus. CHADS-VASC score = 7 Recommend ASA for now and would like to discuss anticoagulation recommendations with oncology pending treatments. 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 Bone scan revealed uptake of the right iliac bone CT guided right iliac bone biopsy reveal metastatic small cell carcinoma She reports weight loss of over 30 pounds in 12 months. Oncology on board. 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 Asymptomatic at this time. Repeat CT 6 months post op showed stable placement but revealed multiple metastatic lesions. (4) COPD (chronic obstructive pulmonary disease) Current Visit: Yes Status: Chronic Medicine managing. Quit smoking 1-2 years ago. History of smoking 1.5 PPD for 61 years. Not taking any medications at home per patient and family. Qualifiers: COPD type: emphysema Emphysema type: unspecified Qualified Code(s): J43.9 - Emphysema, unspecified Discussion w patient/family: The assessment and plan as outlined above was discussed with the patient and/or family members who expressed understanding and agreement. All questions were answered. Thank you for involving us in the care of your patient. Please call with any questions. History of Present Illness Consult date: 08/18/17 Requesting physician: Dali Woods Consult reason: new onset afib with RVR Chief complaint: new onset afib RVR History of present illness: Ms. Gibbs is a very pleasant 82 year old female with a past medical history of osteoarthritis, COPD, CVA (1991) and s/p AAA repair (2016) who presented to [facility] after a followup outpatient with Dr. Dhillon. She reports that she underwent a [address] to recheck AAA repair status and was found to be intact. Incidental findings on CT suggested metastatic disease and she was subsequently admitted via the hospital service for further workup. Findings on Chest CT and Abd CT indicate pericardial LAD, numerous pulmonary nodules, hepatic mass, peritoneal soft tissue masses and bilateral adrenal masses. Bone Scan demonstrates uptake in the right iliac bone and CT guided biopsy was consistent with metastatic small cell carcinoma. Oncology was consulted and awaiting further recommendations. Family states that she has lost over 30 pounds in the last year. She was subsequently found on telemetry to be in atrial fibrillation with RVR and thus, cardiology was consulted. There was no history of this complaint in the past. On evaluation, she reports no cardiac disease in the past with no pertinent family history. Denies any EtOH use. Reports that she quit smoking 1-2 years ago but previously smoked 1.5 PPD for 61 years. Additionally, she underwent AAA repair in February 2017 with bifurcation graft. She was started on Cardizem and has returned to NSR on EKG. ECHO demonstrated EF 55-60%, normal LV and RV motion, mild diastolic dysfunction, mild MR, atypical septal wall motion with moderate pulmonary HTN. Denies any chest pain, palpitations, CHUN, shortness of breath or LE edema. We will continue to follow and offer further recommendations. Past Med Surg Social Fam HX - Past Medical History Medical history: aortic aneurysm, COPD, CVA Psychiatric history: no psych history - Past Surgical History Surgical History: orthopedic, other - Social History Smoking Status: Former smoker Smokeless Tobacco Status: No Alcohol use: none Drug use: none - Family History Father Race: Family Member Ethnicity: Non- Living Status: Hx Family Respiratory Disorders: Yes (Black lung) Medications and Allergies Loratadine [Claritin] 10 mg PO DAILY 08/12/15 [History] Acetaminophen [Tylenol] 650 mg PO Q6HR PRN #20 tablet 08/14/16 [Rx] Tramadol HCl [Ultram] 50 mg PO DAILY PRN 08/12/17 [History] 3 Allergy/AdvReac Type Severity Reaction Status Date / Time codeine Allergy See Verified 08/12/17 09:56 Comments Fish Containing Products Allergy Anaphylaxis Verified 08/12/17 09:56 fish derived Allergy Anaphylaxis Verified 08/12/17 09:56 fish oil Allergy Anaphylaxis Verified 08/12/17 09:56 hydrocodone [From Vicodin] Allergy Rash Verified 08/12/17 09:56 shellfish derived Allergy Anaphylaxis Verified 08/12/17 09:56 All Systems Review: A 10-system review of systems was performed and is negative for pertinent findings except as documented above in the HPI. - Constitutional Constitutional: no fatigue, no headache(s) - Cardiovascular Cardiovascular: as per HPI - Respiratory Respiratory: dyspnea, no cough - Gastrointestinal Gastrointestinal: abdominal pain (right flank) - Genitourinary Genitourinary: no dysuria - Integumentary Integumentary: no erythema - Neurological Neurological: no abnormal speech Physical Examination Vital Signs, Last 4 Hours Temp Pulse Resp BP Pulse Ox 08/19/17 07:19 98.3 F 99 26 122/67 85 General: Conversant, No Apparent Distress HEENT: Atraumatic, Normocephaly, Mucus Membranes Moist Neck: No JVD, Normal carotid pulses Cardiac: Reg Rate and Rhythm, Normal S1 and S2, Other (RACHEL murmur) Lungs: Other (diffuse wheezing, cough on deep inspiration) Neuro: Alert and responsive, No focal deficits noted Abdomen: Soft, Non-Tender Skin: No rashes noted on visualized skin Musculoskeletal: No Chest Wall Tenderness Extremities: No Clubbing, No Cyanosis, No Edema, Normal Pulses Results 08/19/17 08:11 08/19/17 08:11 Lab Results 08/19/17 08/19/17 08:11 08:11 WBC 8.6 Hgb 9.6 L Hct 30.5 L Plt Count 190 Sodium 142 Potassium 3.8 Chloride 106 Carbon Dioxide 28 BUN 17 Creatinine 0.73 Glucose 132 H Calcium 8.6 Magnesium 1.5 L - Imaging and Cardiology Chest Xray: report reviewed Echo: report reviewed - EKG Interpretation EKG results cardiology: personally reviewed, normal ECG, no diagnostic ischemia Consult Discharge Plan - Plan Referrals: Shakira Costello MD [Primary Care Provider] - 08/26/17 11:00 am (computers at the office down, will call madeline afterwards...) <Mimi Huerta - Last Filed: 08/19/17 11:47> Date of Encounter: 08/19/17 - Attending Attestation I examined this patient and my medical decision-making was reviewed with the Resident Physician. I agree with the documented findings, disposition and treatment plan. Ms. Gibbs presented with new AFIB RVR now in NSR. Recommend continuing cardizem which can be transitioned to long acting prior to discharge. Suspect the development of AF is in part related to age, underlying COPD and newly discovered malignancy. Her echo returned demonstrating normal LV and RV function. Her CHADSVASC score is 6-7 estimating a high risk for potential CVA. In light of newly discovered malignancy with metastatic disease, would appreciate Hematology/Oncology recommendations in regards to blood thinning therapy. For now, low dose aspirin. Assessment and Plan Discussion w patient/family: The assessment and plan as outlined above was discussed with the patient and/or family members who expressed understanding and agreement. All questions were answered. Thank you for involving us in the care of your patient. Please call with any questions. History of Present Illness History of present illness: Ms. Gibbs is a 82 year old female All Systems Review: A 10-system review of systems was performed and is negative for pertinent findings except as documented above in the HPI. Physical Examination Vital Signs, Last 4 Hours Temp Pulse Resp BP Pulse Ox 08/19/17 10:52 98.2 F 87 26 106/63 95 08/19/17 10:18 20 94 Results 08/19/17 08:11 08/19/17 08:11 Lab Results 08/19/17 08/19/17 08:11 08:11 WBC 8.6 Hgb 9.6 L Hct 30.5 L Plt Count 190 Sodium 142 Potassium 3.8 Chloride 106 Carbon Dioxide 28 BUN 17 Creatinine 0.73 Glucose 132 H Calcium 8.6 Magnesium 1.5 L
[2017-08-19] MEDS: *HR* Heparin 5,000 UNIT/ML VIAL SQ SCH ×2 (10:04→16:32)
[2017-08-19] MEDS: Furosemide 20 MG TABLET PO SCH (10:04)
[2017-08-19] MEDS: *HR* OxyCODONE ER (12 HR) 10 MG TABLET PO SCH ×2 (10:04→21:01)
[2017-08-19] MEDS: Loratadine 10 MG TABLET PO SCH (10:04)
[2017-08-19] MEDS: Miconazole w/zinc oxide&karaya 92 APPL/92 GM TUBE TP SCH ×2 (10:05→21:01)
[2017-08-19] MEDS: Aspirin Enteric Coated 81 MG Tablet PO SCH (10:05)
[2017-08-19] MEDS: Piperacillin/Tazobactam 3.375 GM in D5% in Water 50 ML IVPB SCH (10:05)
[2017-08-19] MEDS: Lactulose Oral Soln 20 GM/30 ML UDC PO PRN (10:23)
[2017-08-19] MEDS: levoFLOXacin 500 MG TABLET PO SCH (13:30)
--- NOTE | 2017-08-19 15:22 | Internal Med Progress Note ---
Date of Encounter: 08/19/17 Time of Encounter: 15:19 - Assessment and plan (1) Acute respiratory failure with hypoxia Current Visit: Yes Status: Acute Assessment and plan: Inc O2 requirement.. Now on 6 lit O2 mostly due to metastatic disease and b/l Pneumonia Cont close monitoring cont duoneb no need of steroids (2) Pneumonia Current Visit: Yes Status: Acute Assessment and plan: Reviewed CXR from 08/15/17 So far afebrile mostly bacterial pneumonia changed Abx Zosyn to Augmnetin # 3/7 and Levofloxacin # 6/7 Qualifiers: Pneumonia type: aspiration pneumonia Laterality: bilateral Lung location : lower lobe of lung Qualified Code(s): J69.0 - Pneumonitis due to inhalation of food and vomit (3) Acute exacerbation of chronic obstructive airways disease Current Visit: No Status: Acute Assessment and plan: cont Duoneb and O2 No need of steroids (4) Metastatic cancer Current Visit: Yes Status: Acute Assessment and plan: Her biopsy results came back as small cell cancer.. Mostly lung as primary s/p Rt iliac crest bone lesion biopsy Will talk to Heme onc regarding further plan of care (5) Sacral decubitus ulcer Current Visit: Yes Status: Chronic Assessment and plan: cont local wound care Qualifiers: Pressure ulcer stage: unspecified pressure ulcer stage Qualified Code(s): L89.159 - Pressure ulcer of sacral region, unspecified stage (6) New onset atrial fibrillation Current Visit: Yes Status: Acute Assessment and plan: triggered by Resp failure and her severe physical deconditioning state Improved.. Now in NSR Rate well controlled with Metoprolol and Cardizem will switch to Cardizem CD Reviewed her 2 D Echo - showed LVEF 55-60 %, Mild LV Distolic dysfunction for anti coag - CHADSVASC score is 6.. She would get benefit with anticoagulation spoke to card recommend to continue ASA for now, need to coordinate further care with Heme Onc (7) Acute diastolic CHF (congestive heart failure) Current Visit: Yes Status: Acute Assessment and plan: new onset CHF Improved cont pO Lasix - Subjective Interval history: Ms. Gibbs is a 82 year old female with medical hx of aortic aneurysm with repair done in February 2017, COPD not home O2 dependent, and CVA presents from the ED with chief complaint of abdominal pain of the right lower quadrant which she stated has been occurring intermittently over the past several months that has become worse over the past week. CT scan showed evidence of metastatic cancer in the lung, liver, and several lymph nodes. Her bone scan showed Rt iliac crest lesion, for which she had biopsy done here on 08/14/2017. Today pt is alert, awake and O x 3. Denied any CP. Still has moderate SOB and LEI. Currently on 6 lit O2. Her pain is also tolerable with current pain medication. Off the cardizem gtt since y/d - Constitutional Vitals: Temp Pulse Resp BP Pulse Ox 98.2 F 87 26 106/63 95 08/19/17 10:52 08/19/17 10:52 08/19/17 10:52 08/19/17 10:52 08/19/17 10:52 General appearance: Present: cooperative, A&O X 3, no acute distress, underweight, answers questions appropriately - Head Head exam: Present: atraumatic, normal inspection - Neck Neck exam general surgery: Present: supple - Respiratory Respiratory exam: Present: decreased breath sounds, respiratory distress (mild) . Absent: rales, rhonchi, wheezes - Cardiovascular Cardiovascular exam: Present: RRR, +S1, +S2. Absent: systolic murmur, tachycardia - GI/Abdominal GI/Abdominal exam: Present: distended, normal bowel sounds, soft. Absent: rebound, rigid, tenderness - Extremities Exam Extremities exam: Absent: calf tenderness, pedal edema, tenderness - Neurological Exam Neurological exam: Present: alert, oriented X3 - Psychiatric Psychiatric exam: Present: depressed Internal Medicine: Result - Labs CBC & Chem 7: 08/19/17 08:11 08/19/17 08:11 Labs: Short CBC 08/19/17 Range/Units 08:11 WBC 8.6 (4.3-11.1) K/mcL Hgb 9.6 L (11.5-15.4) g/dL Hct 30.5 L (35.3-44.9) % Plt Count 190 (140-400) K/mcL Neutrophils # 7.8 (1.6-8.9) K/mcL BMP 08/19/17 08:11 Sodium 142 Potassium 3.8 Chloride 106 Carbon Dioxide 28 BUN 17 Creatinine 0.73 Glucose 132 H Calcium 8.6 - ABG Interpretation ABG results: PT/INR, D-dimer PT 10.9 Seconds (9.4-12.1) 08/13/17 05:39 Consult Discharge Plan - Plan Referrals: Shakira Costello MD [Primary Care Provider] - 08/26/17 11:00 am (computers at the office down, will call madeline afterwards...)
--- NOTE | 2017-08-19 16:51 | Oncology Inp Progress Note ---
Date of Encounter: 08/20/17 Time of Encounter: 17:00 (1) Metastatic cancer Current Visit: Yes Status: Acute Assessment and plan: Metastatic small cell lung cancer, stage IV disease, multiple liver, lung lesions, mediastinal lymphadenopathy, bone disease patient overall and declining performance status. Biopsy reports today reviewed with patient and her entire family, CT scan reports reviewed disease extent discussed with family in detail. Considering that treatment is mainly palliative knowing the risks involved with chemotherapy patient decided not to have any treatment. She will be referred for hospice care at home. Pain management we can consider radiation therapy to the bony lesion in the hip for pain control. Currently her pain is managed with oxycodone. Consider palliative care consult to for home hospice, symptom control. Constipation-add laxatives to stool softners. BAck wound/decubiti, consider duoderm/topical Rx. Plan reviewed as above with patient and family in detail. Oncology: Subj Interval history: Rt hip pain, rt lower abd mass lke lesion she felt - Constitutional Vitals: Vital Signs Temp Pulse Resp BP Pulse Ox 08/19/17 15:55 98.9 F 91 18 127/74 91 08/19/17 15:52 22 93 08/19/17 10:52 98.2 F 87 26 106/63 95 08/19/17 10:18 20 94 08/19/17 07:19 98.3 F 99 26 122/67 85 08/19/17 04:19 98.3 F 98 17 126/55 08/19/17 03:43 16 86 08/18/17 23:49 97.5 F L 86 16 112/63 08/18/17 20:10 91 08/18/17 19:28 98.4 F 93 17 110/65 92 Intake and Output 08/19/17 08/19/17 08/19/17 07:59 15:59 23:59 Intake Total 50 / 50 160 / 160 Output Total 0 / 0 Balance 50 / 50 160 / 160 Intake: IV Fluids 50 / 50 Zosyn 3.375 GM In Dextrose 5% ( 50 / 50 ADD-Pecan Gap) 50 ML @ 12.5 mls/ hr IVPB Q8HR DELPHINE Rx#:[id number] Oral 160 / 160 Output: Urine 0 / 0 Other: Meal Lunch Percent of Meal Consumed 100% Weight 53.8 kg Patient Weight 08/19/17 23:59 Weight 53.8 kg General appearance: thin - Head Head exam: Present: atraumatic, normal inspection - Eye Eye exam: Present: sclera anicteric - Neck Neck exam: Present: full ROM - Cardiovascular Cardiovascular exam: Present: +S1, +S2 - GI/Abdominal GI/Abdominal exam: Present: distended, normal bowel sounds, soft - Neurological Exam Neurological exam: Present: alert, CN II-XII intact, oriented X3 - Skin Additional comments: rt side bruising Oncology: Obj Data - Labs CBC & Chem 7: 08/19/17 08:11 08/19/17 08:11 Labs: Laboratory Results - last 24 hr 08/19/17 08/19/17 08:11 08:11 WBC 8.6 RBC 3.16 L Hgb 9.6 L Hct 30.5 L MCV 96.5 MCH 30.4 MCHC 31.5 L RDW 16.7 H Plt Count 190 MPV 10.2 Immature Gran % 0.7 Seg Neutrophils % 90.9 Lymphocytes % 4.1 Monocytes % 4.2 Eosinophils % 0.0 Basophils % 0.1 Neutrophils # 7.8 Lymphocytes # 0.4 L Monocytes # 0.4 Eosinophils # 0.0 Basophils # 0.0 Immature Plt Fraction 4.0 Sodium 142 Potassium 3.8 Chloride 106 Carbon Dioxide 28 BUN 17 Creatinine 0.73 Est GFR ( Amer) > 60 Est GFR (Non-Af Amer) > 60 BUN/Creatinine Ratio 23 Glucose 132 H Calculated Osmolality 297 Calcium 8.6 Magnesium 1.5 L - ABG Interpretation ABG results: PT/INR, D-dimer PT 10.9 Seconds (9.4-12.1) 08/13/17 05:39 Consult Discharge Plan - Plan Referrals: Shakira Costello MD [Primary Care Provider] - 08/26/17 11:00 am (computers at the office down, will call madeline afterwards...)
[2017-08-20] MEDS: *HR* Heparin 5,000 UNIT/ML VIAL SQ SCH ×4 (00:29→23:14)
[2017-08-20] MEDS: *HR* OxyCODONE Immed Rel 5 MG TABLET PO PRN ×3 (00:29→13:08)
[2017-08-20] MEDS: Ipratropium/Albuterol Neb 3 ML IH SCH ×5 (03:58→22:29)
[2017-08-20] MEDS: Furosemide 20 MG TABLET PO SCH (08:02)
[2017-08-20] MEDS: Loratadine 10 MG TABLET PO SCH (08:02)
[2017-08-20] MEDS: *HR* OxyCODONE ER (12 HR) 10 MG TABLET PO SCH (08:02)
[2017-08-20] MEDS: Aspirin Enteric Coated 81 MG Tablet PO SCH (08:02)
[2017-08-20] MEDS: Desitin (Zinc Oxide) 56 GM TUBE TP SCH (08:03)
[2017-08-20] MEDS: Miconazole w/zinc oxide&karaya 92 APPL/92 GM TUBE TP SCH ×2 (08:03→20:15)
[2017-08-20] MEDS: Lactulose Oral Soln 20 GM/30 ML UDC PO PRN (08:10)
--- NOTE | 2017-08-20 09:09 | Cardiology Progress Note ---
<Nelson Mtz - Last Filed: 08/20/17 10:36> Date of Encounter: 08/20/17 Time of Encounter: 09:07 Assessment and Plan (1) New onset atrial fibrillation Current Visit: Yes Status: Acute Vitals signs stable. Telemetry review shows HR in 90s in NS Continue Cardizem Hcl for now. CD on discharge. Kidney function normal ECHO: EF 55-60%, normal LV and RV motion with mild diastolic dysfunction. Atypical septal motion, mild MR and moderate pulmonary HTN. No thrombus. Discussed case with palliative care and Oncology. With a high CHADS-VASC score of 6-7 and her hypercoaguable state, all full anticoagulation options were given to patient. Risks and benefits were discussed at length and patient/family agrees to not start full anticoagulation d/t risks outweighing the benefits at this time. Continue ASA. Cardiology will sign off at this time. Please re-consult if there are any questions or concerns in the future. Thanks for involving us in Ms. Gibbs's care. 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 Bone scan revealed uptake of the right iliac bone CT guided right iliac bone biopsy reveal metastatic small cell carcinoma She reports weight loss of over 30 pounds in 12 months. Oncology on board offered chemotherapy but patient declined. 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 Asymptomatic at this time. Repeat CT 6 months post op showed stable placement but revealed multiple metastatic lesions. (4) COPD (chronic obstructive pulmonary disease) Current Visit: Yes Status: Chronic Medicine managing. Quit smoking 1-2 years ago. History of smoking 1.5 PPD for 61 years. Not taking any medications at home per patient and family. Qualifiers: COPD type: emphysema Emphysema type: unspecified Qualified Code(s): J43.9 - Emphysema, unspecified Discussion w patient/family: The assessment and plan as outlined above was discussed with the patient and/or family members who expressed understanding and agreement. All questions were answered. Thank you for involving us in the care of your patient. Please call with any questions. Subjective Principal diagnosis: new onset afib Interval history: Patient is drowsing in bed this morning with family present. Denies any chest pain, palpitations, shortness of breath or LE edema. No concerns overnight. Objective Vital Signs, Last 4 Hours Temp Pulse Resp BP Pulse Ox 08/20/17 06:23 97.7 F 99 24 126/81 94 General: Conversant, No Apparent Distress HEENT: Atraumatic, Normocephaly, Mucus Membranes Moist Neck: No JVD, Normal carotid pulses Cardiac: Reg Rate and Rhythm, Normal S1 and S2, Other (RACHEL) Lungs: Normal Breath Sounds, No Wheeze, Rales, Rhonchi Neuro: Alert and responsive, No focal deficits noted Abdomen: Soft, Non-Tender Skin: No rashes noted on visualized skin Musculoskeletal: No Chest Wall Tenderness Extremities: No Clubbing, No Cyanosis, No Edema, Normal Pulses Results 08/19/17 08:11 08/19/17 08:11 - EKG Interpretation EKG results cardiology: personally reviewed, no diagnostic ischemia Consult Discharge Plan - Plan Referrals: Shakira Costello MD [Primary Care Provider] - 08/26/17 11:00 am (computers at the office down, will call madeline afterwards...) <Mimi Huerta - Last Filed: 08/20/17 13:54> Date of Encounter: 08/20/17 Assessment and Plan Discussion w patient/family: I examined this patient and my medical decision-making was reviewed with the Resident Physician. I agree with the documented findings, disposition and treatment plan. Patient remains in normal sinus rhythm. Recommend continuing AVN blockers. Can change cardizem to long acting. Given patient's increased CHADSVASC score, case was discussed with Hem/Onc regarding anticoagulation. Given her poor overall prognosis, it seems reasonable to continue only aspirin in the short term. Hem/Onc also recommended aspirin only. We will sign off. Please call with questions. If appropriate, consider outpatient cardiology follow up. Objective Vital Signs, Last 4 Hours Temp Pulse Resp BP Pulse Ox 08/20/17 11:39 97.8 F 104 17 123/68 90 08/20/17 10:36 20 89 Results 08/19/17 08:11 08/19/17 08:11
--- NOTE | 2017-08-20 09:26 | Palliative - Consult Note ---
<John Brower - Last Filed: 08/20/17 09:20> Date of Encounter: 08/20/17 Time of Encounter: 09:20 - Assessment and Plan (1) Metastatic cancer Current Visit: Yes Status: Acute Assessment and plan: metastatic small cell lung cancer patient was offered palliative chemotherapy and radiation but did not want the treatment she would like to be comfortable. patient will be transitioned to hospice. continue oxycodone for pain DNR-CC (2) Acute exacerbation of chronic obstructive pulmonary disease (COPD) Current Visit: Yes Status: Acute Assessment and plan: patient sob has improved continue supplemental O2 and duoneb (3) Pneumonia Current Visit: Yes Status: Acute Assessment and plan: bacterial pna continue antibiotics Qualifiers: Pneumonia type: due to unspecified organism Laterality: left Lung location: lower lobe of lung Qualified Code(s): J18.9 - Pneumonia, unspecified organism (4) Sacral decubitus ulcer Current Visit: Yes Status: Chronic Assessment and plan: wound care consulted Qualifiers: Pressure ulcer stage: unspecified pressure ulcer stage Qualified Code(s): L89.159 - Pressure ulcer of sacral region, unspecified stage (5) Pancreatitis Current Visit: Yes Status: Resolved Qualifiers: Chronicity: acute Pancreatitis type: unspecified pancreatitis type Acute pancreatitis complication: unspecified Qualified Code(s): K85.90 - Acute pancreatitis without necrosis or infection, unspecified (6) New onset atrial fibrillation Current Visit: Yes Status: Acute Assessment and plan: Patient has new onset afib on cardizem will be discharged with cardizem anticoagulation will not be started at this point due to risks outweighing benefit. on aspirin. Palliative-CN HPI - Data of Consult Patient: new to practice Consult date: 08/20/17 Requesting Physician: Dali Woods MD Primary Care Provider: Shakira Costello, - Consult Narrative Palliative Care/Comfort Measures: Hospice care Reason for consult: terminal cancer History of present illness: Ms. Gibbs is a 82 year old female who presented with chief complaint of abdominal pain in the right lower quadrant. Patient was diagnosed with pancreatitis, but on CT scan there was evidence of metastatic cancer in the lung , liver, and several lymph nodes. Patient had a CT-guided biopsy of iliac metastasis which came back as metastatic small cell carcinoma. Oncology assessment patient and recommended palliative chemotherapy and radiation which the patient decided would often or colds. Patient was referred to pelvic her to transition to hospice. Patient would like home hospice. CC: Dali Woods MD Past Med Surg Social Fam HX - Past Medical History Medical history: aortic aneurysm, COPD, CVA Psychiatric history: no psych history - Past Surgical History Surgical History: orthopedic, other - Social History Smoking Status: Former smoker Smokeless Tobacco Status: No Alcohol use: none Drug use: none - Family History Father Race: Family Member Ethnicity: Non- Living Status: Hx Family Respiratory Disorders: Yes (Black lung) Medications and Allergies Loratadine [Claritin] 10 mg PO DAILY 08/12/15 [History] Acetaminophen [Tylenol] 650 mg PO Q6HR PRN #20 tablet 08/14/16 [Rx] Tramadol HCl [Ultram] 50 mg PO DAILY PRN 08/12/17 [History] 3 Allergy/AdvReac Type Severity Reaction Status Date / Time codeine Allergy See Verified 08/12/17 09:56 Comments Fish Containing Products Allergy Anaphylaxis Verified 08/12/17 09:56 fish derived Allergy Anaphylaxis Verified 08/12/17 09:56 fish oil Allergy Anaphylaxis Verified 08/12/17 09:56 hydrocodone [From Vicodin] Allergy Rash Verified 08/12/17 09:56 shellfish derived Allergy Anaphylaxis Verified 08/12/17 09:56 Review of systems: Constitutional: Denies fever, chills HEENT: Denies headache, vision changes, neck pain, sore throat, rhinorrhea Heart: Denies chest pain palpitations Lungs:reports sob and cough Abdomen: Denies abdominal pain nausea vomiting diarrhea Back: Denies back pain Kidney: Denies dysuria, hematuria Skin: warm and dry Extremities: Denies swelling, pain Neuro: Denies numbness, and tingling Palliative Care-Exam - Constitutional Vitals: Temp Pulse Resp BP Pulse Ox 97.7 F 99 24 126/81 94 08/20/17 06:23 08/20/17 06:23 08/20/17 06:23 08/20/17 06:23 08/20/17 06:23 General appearance: Present: thin Internal Medicine - CN: Reslt - Labs CBC & Chem 7: 08/19/17 08:11 08/19/17 08:11 - ABG Interpretation ABG results: PT/INR, D-dimer PT 10.9 Seconds (9.4-12.1) 08/13/17 05:39 Consult Discharge Plan - Plan Referrals: Shakira Costello MD [Primary Care Provider] - 08/26/17 11:00 am (computers at the office down, will call madeline afterwards...) Palliative Quality Palliative Quality: Screen for Code Status: Yes, Screen for Goals of Care: Yes, Screen for Pain: Yes, If Pain Regimen Started, Initiate Bowel Regimen: Yes, Screen for Nausea/Vomitting: Yes Code Status: 08/12/17 17:22 Resuscitation Status: Active [RES] Routine Comment: Resuscitation Status: Full Code <Chris Purvis - Last Filed: 08/20/17 11:11> Date of Encounter: 08/20/17 Palliative-CN HPI - Data of Consult Requesting Physician: Dali Woods MD Primary Care Provider: Shakira Costello, - Consult Narrative History of present illness: Ms. Gibbs is a 82 year old female CC: Dali Woods MD Palliative Care-Exam - Constitutional Vitals: Temp Pulse Resp BP Pulse Ox 97.7 F 99 24 126/81 94 08/20/17 06:23 08/20/17 06:23 08/20/17 06:23 08/20/17 06:23 08/20/17 06:23 Internal Medicine - CN: Reslt - Labs CBC & Chem 7: 08/19/17 08:11 08/19/17 08:11 - ABG Interpretation ABG results: PT/INR, D-dimer PT 10.9 Seconds (9.4-12.1) 08/13/17 05:39 - Attending Attestation I examined this patient and my medical decision-making was reviewed with the Resident Physician. I agree with the documented findings, disposition and treatment plan as described except to the extent set forth below. Palliative Quality Code Status: 08/12/17 17:22 Resuscitation Status: Active [RES] Routine Comment: Resuscitation Status: Full Code 08/20/17 09:53 CODE [Resuscitation Status: Active] [RES] Routine Comment: Resuscitation Status: DNR-Comfort Care
[2017-08-20] MEDS: levoFLOXacin 500 MG TABLET PO SCH (13:08)
--- NOTE | 2017-08-20 15:31 | Internal Med Progress Note ---
Date of Encounter: 08/20/17 Time of Encounter: 15:28 - Assessment and plan (1) Acute respiratory failure with hypoxia Current Visit: Yes Status: Acute Assessment and plan: Inc O2 requirement.. Now on 10 lit O2 mostly due to metastatic disease and b/l Pneumonia Cont close monitoring cont duoneb no need of steroids Family requested for palliative / home hospice care Dr. Purvis arranging for home hospice care (2) Pneumonia Current Visit: Yes Status: Acute Assessment and plan: So far afebrile mostly bacterial pneumonia changed Abx Zosyn to Augmnetin # 4/7 and Levofloxacin # 7/7 Qualifiers: Pneumonia type: aspiration pneumonia Laterality: bilateral Lung location : lower lobe of lung Qualified Code(s): J69.0 - Pneumonitis due to inhalation of food and vomit (3) Acute exacerbation of chronic obstructive airways disease Current Visit: No Status: Acute Assessment and plan: cont Duoneb and O2 No need of steroids (4) Metastatic cancer Current Visit: Yes Status: Acute Assessment and plan: Her biopsy results came back as small cell cancer.. Mostly lung as primary s/p Rt iliac crest bone lesion biopsy Pt does not want to go for palliative chemo / radiotherapy requested for home hospice care.. (5) Sacral decubitus ulcer Current Visit: Yes Status: Chronic Assessment and plan: cont local wound care Qualifiers: Pressure ulcer stage: unspecified pressure ulcer stage Qualified Code(s): L89.159 - Pressure ulcer of sacral region, unspecified stage (6) New onset atrial fibrillation Current Visit: Yes Status: Acute Assessment and plan: triggered by Resp failure and her severe physical deconditioning state Improved.. Now in NSR Rate well controlled with Metoprolol and Cardizem Reviewed her 2 D Echo - showed LVEF 55-60 %, Mild LV Distolic dysfunction cont ASA (7) Acute diastolic CHF (congestive heart failure) Current Visit: Yes Status: Acute Assessment and plan: new onset CHF Improved cont pO Lasix - Subjective Interval history: Ms. Gibbs is a 82 year old female with medical hx of aortic aneurysm with repair done in February 2017, COPD not home O2 dependent, and CVA presents from the ED with chief complaint of abdominal pain of the right lower quadrant which she stated has been occurring intermittently over the past several months that has become worse over the past week. CT scan showed evidence of metastatic cancer in the lung, liver, and several lymph nodes. Her bone scan showed Rt iliac crest lesion, for which she had biopsy done here on 08/14/2017. Today pt is alert, awake and O x 3. Denied any CP. Still has moderate SOB and LEI. Currently on 10 lit O2. Her pain is also tolerable with current pain medication. - Constitutional Vitals: Temp Pulse Resp BP Pulse Ox 97.8 F 104 17 123/68 90 08/20/17 11:39 08/20/17 11:39 08/20/17 11:39 08/20/17 11:39 08/20/17 11:39 General appearance: Present: cooperative, mild distress, A&O X 3, underweight, answers questions appropriately - Head Head exam: Present: atraumatic, normal inspection - Respiratory Respiratory exam: Present: decreased breath sounds, respiratory distress (mild) , wheezes (moderate). Absent: rales, rhonchi - Cardiovascular Cardiovascular exam: Present: RRR, +S1, +S2 - GI/Abdominal GI/Abdominal exam: Present: distended, soft. Absent: rebound, rigid, tenderness - Extremities Exam Extremities exam: Absent: calf tenderness, pedal edema, tenderness - Neurological Exam Neurological exam: Present: alert, oriented X3 - Psychiatric Psychiatric exam: Present: depressed Internal Medicine: Result - Labs CBC & Chem 7: 08/19/17 08:11 08/19/17 08:11 - ABG Interpretation ABG results: PT/INR, D-dimer PT 10.9 Seconds (9.4-12.1) 08/13/17 05:39 Consult Discharge Plan - Plan Referrals: Shakira Costello MD [Primary Care Provider] - 08/26/17 11:00 am (computers at the office down, will call madeline afterwards...)
[2017-08-20] MEDS ORDERED: Sennosides/Docusate Sodium TABLET PO PRN (15:36)
[2017-08-20] MEDS ORDERED: *HR* OxyCODONE ER (12 HR) 10 MG TABLET PO SCH ×2 (15:38→21:00)
[2017-08-20] MEDS ORDERED: Bisacodyl 10 MG RECTAL SUPPOSITORY RC ONE (15:39)
[2017-08-20] MEDS ORDERED: *HR* OxyCODONE ER (12 HR) 10 MG TABLET PO ONE (15:41)
[2017-08-20] MEDS: Diltiazem CD (24hr) 180 MG CAPSULE PO SCH (17:47)
[2017-08-21] MEDS: Ipratropium/Albuterol Neb 3 ML IH SCH ×2 (04:02→10:36)
--- NOTE | 2017-08-21 08:39 | Palliative Progress Note ---
<John Brower - Last Filed: 08/21/17 08:36> Date of Encounter: 08/21/17 Time of Encounter: 08:37 - Assessment and plan (1) Metastatic cancer Current Visit: Yes Status: Acute Assessment and plan: Stage IV small cell lung cancer declined palliative chemo and radiation patient transitioning to hospice sent home on morphine ER 15mg BID and roxicodone prn (2) Acute exacerbation of chronic obstructive pulmonary disease (COPD) Current Visit: Yes Status: Acute Assessment and plan: resolved sob controlled requiring 10L O2 via NC. Will need have two concentrators at home. (3) Pneumonia Current Visit: Yes Status: Acute Assessment and plan: bacterial pna on augmentin Qualifiers: Pneumonia type: due to unspecified organism Laterality: left Lung location: lower lobe of lung Qualified Code(s): J18.9 - Pneumonia, unspecified organism (4) New onset atrial fibrillation Current Visit: Yes Status: Acute Assessment and plan: now NSR on afib aspirin not anticoagulated as risks outweight benefit. (5) Sacral decubitus ulcer Current Visit: Yes Status: Chronic Assessment and plan: dressed. wound care following Qualifiers: Pressure ulcer stage: unspecified pressure ulcer stage Qualified Code(s): L89.159 - Pressure ulcer of sacral region, unspecified stage (6) Pancreatitis Current Visit: Yes Status: Resolved Qualifiers: Chronicity: acute Pancreatitis type: unspecified pancreatitis type Acute pancreatitis complication: unspecified Qualified Code(s): K85.90 - Acute pancreatitis without necrosis or infection, unspecified - Time Spent With Patient Total time spent is greater than 50% in coordination of care (as documented) at patient's floor/unit and/or counseling patient: - Subjective Interval history: Patient has not complaints this morning. ON 10L O2. sob controlled. Has productive cough. - Constitutional Vitals: Abnormal lab results RBC 3.16 M/mcL (3.82-4.97) L 08/19/17 08:11 Hgb 9.6 g/dL (11.5-15.4) L 08/19/17 08:11 Hct 30.5 % (35.3-44.9) L 08/19/17 08:11 MCHC 31.5 g/dL (31.6-35.5) L 08/19/17 08:11 RDW 16.7 % (11.5-14.5) H 08/19/17 08:11 Lymphocytes # 0.4 K/mcL (0.6-4.6) L 08/19/17 08:11 Glucose 132 mg/dL (70-99) H 08/19/17 08:11 Hemoglobin A1c 5.7 % (-5.6) H 08/13/17 05:39 Magnesium 1.5 mg/dL (1.6-2.6) L 08/19/17 08:11 Serum Total Protein 4.9 g/dL (6.0-8.3) L 08/18/17 03:30 Albumin 1.9 g/dL (3.5-5.0) L 08/18/17 03:30 Albumin/Globulin Ratio 0.6 (1.1-2.2) L 08/18/17 03:30 LDL Cholesterol, Calc 102 mg/dL (0-99) H 08/13/17 05:39 Lipase 209 Units/L (8-78) H 08/18/17 03:30 Carcinoembryonic Ag 7.0 ng/mL (0-5.0) H 08/12/17 18:42 CA 19-9 Antigen 108 U/mL (0-37) H 08/12/17 18:42 CA 125 Ag Serial Mntr 124 U/mL (0-35) H 08/12/17 18:42 Urine Clarity Turbid (Clear) A 08/12/17 10:10 Urine Protein 30 mg/dL (Neg-Trace) H 08/12/17 10:10 Ur Leukocyte Esterase Small (Negative) H 08/12/17 10:10 Urine Microscopic RBC 5-15 per hpf (0-3) H 08/12/17 10:10 Urine Microscopic WBC 5-15 per hpf (0-3) H 08/12/17 10:10 Ur Squamous Epith Cells Many per lpf (None-Few) H 08/12/17 10:10 - Additional findings Additional findings: General: Pleasant without distress Heart: Regular rate and rhythm with no murmur Lungs: Diminished, coarse bilaterally with wheezing and rhonchi Abdomen: Soft nontender, nondistended positive bowel sounds Skin: warm and dry Extremities: Absent pedal edema, Vascular: Pedal and radial pulses 2 out of 4 Palliative Quality Palliative Quality: Screen for Code Status: Yes, Screen for Goals of Care: Yes, Screen for Pain: Yes, If Pain Regimen Started, Initiate Bowel Regimen: Yes, Screen for Nausea/Vomitting: Yes Code Status: 08/12/17 17:22 Resuscitation Status: Active [RES] Routine Comment: Resuscitation Status: Full Code 08/20/17 09:53 CODE [Resuscitation Status: Active] [RES] Routine Comment: Resuscitation Status: DNR-Comfort Care - Labs CBC & Chem 7: 08/19/17 08:11 08/19/17 08:11 - ABG Interpretation ABG results: PT/INR, D-dimer PT 10.9 Seconds (9.4-12.1) 08/13/17 05:39 Consult Discharge Plan - Plan Referrals: Shakira Costello MD [Primary Care Provider] - 08/26/17 11:00 am (computers at the office down, will call madeline afterwards...) <Chris Purvis - Last Filed: 08/21/17 10:15> Date of Encounter: 08/21/17 - Time Spent With Patient Total time spent is greater than 50% in coordination of care (as documented) at patient's floor/unit and/or counseling patient: - Constitutional Vitals: Abnormal lab results RBC 3.16 M/mcL (3.82-4.97) L 08/19/17 08:11 Hgb 9.6 g/dL (11.5-15.4) L 08/19/17 08:11 Hct 30.5 % (35.3-44.9) L 08/19/17 08:11 MCHC 31.5 g/dL (31.6-35.5) L 08/19/17 08:11 RDW 16.7 % (11.5-14.5) H 08/19/17 08:11 Lymphocytes # 0.4 K/mcL (0.6-4.6) L 08/19/17 08:11 Glucose 132 mg/dL (70-99) H 08/19/17 08:11 Hemoglobin A1c 5.7 % (-5.6) H 08/13/17 05:39 Magnesium 1.5 mg/dL (1.6-2.6) L 08/19/17 08:11 Serum Total Protein 4.9 g/dL (6.0-8.3) L 08/18/17 03:30 Albumin 1.9 g/dL (3.5-5.0) L 08/18/17 03:30 Albumin/Globulin Ratio 0.6 (1.1-2.2) L 08/18/17 03:30 LDL Cholesterol, Calc 102 mg/dL (0-99) H 08/13/17 05:39 Lipase 209 Units/L (8-78) H 08/18/17 03:30 Carcinoembryonic Ag 7.0 ng/mL (0-5.0) H 08/12/17 18:42 CA 19-9 Antigen 108 U/mL (0-37) H 08/12/17 18:42 CA 125 Ag Serial Mntr 124 U/mL (0-35) H 08/12/17 18:42 Urine Clarity Turbid (Clear) A 08/12/17 10:10 Urine Protein 30 mg/dL (Neg-Trace) H 08/12/17 10:10 Ur Leukocyte Esterase Small (Negative) H 08/12/17 10:10 Urine Microscopic RBC 5-15 per hpf (0-3) H 08/12/17 10:10 Urine Microscopic WBC 5-15 per hpf (0-3) H 08/12/17 10:10 Ur Squamous Epith Cells Many per lpf (None-Few) H 08/12/17 10:10 - Attending Attestation I examined this patient and my medical decision-making was reviewed with the Resident Physician. I agree with the documented findings, disposition and treatment plan as described except to the extent set forth below. Since durable medical equipment will be delivered around 10:30 this morning. Hospice will sign her up around noon that she will go home thereafter. Palliative Quality Code Status: 08/12/17 17:22 Resuscitation Status: Active [RES] Routine Comment: Resuscitation Status: Full Code 08/20/17 09:53 CODE [Resuscitation Status: Active] [RES] Routine Comment: Resuscitation Status: DNR-Comfort Care - Labs CBC & Chem 7: 08/19/17 08:11 08/19/17 08:11 - ABG Interpretation ABG results: PT/INR, D-dimer PT 10.9 Seconds (9.4-12.1) 08/13/17 05:39
[2017-08-21] MEDS: Loratadine 10 MG TABLET PO SCH (09:17)
[2017-08-21] MEDS: Diltiazem CD (24hr) 180 MG CAPSULE PO SCH (09:17)
[2017-08-21] MEDS: Aspirin Enteric Coated 81 MG Tablet PO SCH (09:17)
[2017-08-21] MEDS: Furosemide 20 MG TABLET PO SCH (09:17)
[2017-08-21] MEDS: Desitin (Zinc Oxide) 56 GM TUBE TP SCH (09:19)
[2017-08-21] MEDS: Miconazole w/zinc oxide&karaya 92 APPL/92 GM TUBE TP SCH (09:19)
[2017-08-21] MEDS: *HR* Heparin 5,000 UNIT/ML VIAL SQ SCH (09:19)
[2017-08-21] MEDS ORDERED: *HR* Morphine Sulfate SR (12 HR) 15 MG TABLET.ER PO SCH ×2 (09:30→18:00)
--- NOTE | 2017-08-21 10:42 | Discharge Summary ---
Date of Encounter: 08/21/17 Time of Encounter: 10:38 - Discharge Diagnosis (1) Acute respiratory failure with hypoxia Priority: Primary Status: Acute (2) Pneumonia Priority: Primary Status: Acute Qualifiers: Pneumonia type: aspiration pneumonia Laterality: bilateral Lung location : lower lobe of lung Qualified Code(s): J69.0 - Pneumonitis due to inhalation of food and vomit (3) Small cell lung cancer Priority: Secondary Status: Acute Qualifiers: Laterality: left Qualified Code(s): C34.92 - Malignant neoplasm of unspecified part of left bronchus or lung (4) Acute exacerbation of chronic obstructive airways disease Priority: Primary Status: Acute (5) Metastatic cancer Priority: Primary Status: Acute (6) Sacral decubitus ulcer Priority: Secondary Status: Chronic Qualifiers: Pressure ulcer stage: unspecified pressure ulcer stage Qualified Code(s): L89.159 - Pressure ulcer of sacral region, unspecified stage (7) New onset atrial fibrillation Priority: Secondary Status: Acute (8) Acute diastolic CHF (congestive heart failure) Priority: Secondary Status: Acute - Discharge Medications Prescriptions: OxyCODONE Immed Rel [Roxicodone 5 MG] 5 mg PO Q6HR PRN #30 tablet PRN Reason: Moderate to Severe Pain (4-10) Morphine Sulfate SR (12 HR) [MS Contin] 15 mg PO Q12HR #30 tablet.er Aspirin Enteric Coated [Aspirin EC] 81 mg PO DAILY #30 tablet.dr Micki ABREU (24hr) [Cardizem CD] 180 mg PO DAILY #30 cap.er.24h Metoprolol [Lopressor] 25 mg PO BID #60 tablet Polyethylene Glycol 3350 [MiraLAX] 17 gm PO DAILY PRN #20 powd.pack PRN Reason: Constipation Sennosides/Docusate Sodium [Senna Plus] 1 each PO BID PRN #30 tablet PRN Reason: constipation Home Medications: Loratadine [Claritin] 10 mg PO DAILY 08/12/15 [History] Acetaminophen [Tylenol] 650 mg PO Q6HR PRN #20 tablet 08/14/16 [Rx] Aspirin Enteric Coated [Aspirin EC] 81 mg PO DAILY #30 tablet. 08/21/17 [Rx] Diltiazem CD (24hr) [Cardizem CD] 180 mg PO DAILY #30 cap.er.24h 08/21/17 [Rx] Metoprolol [Lopressor] 25 mg PO BID #60 tablet 08/21/17 [Rx] Morphine Sulfate SR (12 HR) [MS Contin] 15 mg PO Q12HR #30 tablet.er 08/21/17 [ Rx] OxyCODONE Immed Rel [Roxicodone 5 MG] 5 mg PO Q6HR PRN #30 tablet 08/21/17 [Rx] Polyethylene Glycol 3350 [MiraLAX] 17 gm PO DAILY PRN #20 powd.pack 08/21/17 [Rx ] Sennosides/Docusate Sodium [Senna Plus] 1 each PO BID PRN #30 tablet 08/21/17 [ Rx] Allergies/Adverse Reactions: 3 Allergy/AdvReac Type Severity Reaction Status Date / Time codeine Allergy See Verified 08/12/17 09:56 Comments Fish Containing Products Allergy Anaphylaxis Verified 08/12/17 09:56 fish derived Allergy Anaphylaxis Verified 08/12/17 09:56 fish oil Allergy Anaphylaxis Verified 08/12/17 09:56 hydrocodone [From Vicodin] Allergy Rash Verified 08/12/17 09:56 shellfish derived Allergy Anaphylaxis Verified 08/12/17 09:56 Procedures/tests Complete & Pending: Procedures Performed prior 72 hours Category Date Time Status EV echocardiogram Routine Y 08/18/17 17:06 Completed Date of admission: 08/12/17 14:40 Primary care physician: Shakira Costello, Consults: 08/12/17 17:28 Consult to Vp Customer Development [CONS] Routine Reason for SW Consult: Patient and family just found out about metastatic cancer dx. Pt. lives in her own apt. Please assess for home needs for post-discharge planning and safety. 08/12/17 17:29 Consult to Occupational Therapy [CONS] Routine Comment: Evaluate, develop and implement POC Reason for Consult: Patient is frail patient who lives by herself but has a lot of family support. Hx of falls. Please assess for strength, stability, safety, ambulation, and assistive needs for post-discharge planning. 08/12/17 17:30 Consult to Physical Therapy [CONS] Routine Comment: Evaluate, develop and implement POC Reason for Consult: Patient is frail patient who lives by herself but has a lot of family support. Hx of falls. Please assess for strength, stability, safety, ambulation, and assistive needs for post-discharge planning. 08/12/17 17:45 Consult to Gastroenterology [CONS] Routine Consulting Provider: [facility] Reason for Consult: Pt. is 82 year-old w/lipase of 492 and pancreatitis. Found out today she has dx of metastatic cancer to multiple sites (lung, liver). Severe abdominal pain. Pt. to be NPO w/IV fluids. Stair-step pain medication for pain management. Call Completed: No Consult to Oncology [CONS] Routine Consulting Provider: [facility] [place] Reason for Consult: Pt. seen for f/u of AAA repair 5-6 months ago. Imaging revealed mediastinal anterior cardiophrenic angle lymphadenopathy that likely reflects metastatic disease. Mediastinal nodes encased and mildly narrow the left lobar pulmonary artery mainstem bronchus. Numerous left lung pulmonary nodules which are predominantly pleural-based. Largest left upper lobe mass measures up to 1.9 cm. Overall findings are worrisome for metastatic disease. Hypoenhancing hepatic mass is not significantly changed in size also consistent with metastatic disease. Numerous peritoneal based soft tissue nodules are consistent with metastatic disease. Pt. and family unaware of metastases. Please assess for tx options and discuss w/pt. and family. Call Completed: Yes 08/12/17 18:45 Consult to Wound Care [CONS] Routine Reason for Consult: Assess sacral decubitus ulcer and recommend daily wound care tx. Call Completed: No 08/13/17 07:52 Consult to Invasive Line Access Team [CONS] Routine Reason for Consult: Limited vascular access Line Type: EPIV PICC line indications: Limited vascular access Call Completed: Yes 08/14/17 17:32 Consult to Invasive Line Access Team [CONS] Routine Reason for Consult: linited access Line Type: EPIV 08/18/17 14:31 Consult to Cardiology [CONS] Routine Comment: Consulting Provider: Cardiology [facility] Reason for Consult: Newonset A fib with RVR.. Multiple comorbidities Call Completed: Yes 08/19/17 15:29 Consult to Palliative Care [CONS] Routine Comment: Consulting Provider: Palliative [facility] Reason for Consult: Metastatic lung ca- Family requested for home hospice Call Completed: Yes - Patient Status Disposition: Hospice - Home Condition: Good Overall status at discharge: patient is back to baseline - Discharge Instructions Follow Up With: Shakira Costello MD [Primary Care Provider] - 08/26/17 11:00 am (computers at the office down, will call madeline afterwards...) Chris Fletcher MD [Partnered Physician] - - Diet and Activity Activity: increase activity as tolerated, wear oxygen at all times Diet: advance to your usual diet Hospital course: Ms. Gibbs is a 82 year old female with medical hx of aortic aneurysm with repair done in February 2017, COPD not home O2 dependent, and CVA presents from the ED with chief complaint of abdominal pain of the right lower quadrant which she stated has been occurring intermittently over the past several months that has become worse over the past week. CT scan showed evidence of metastatic cancer in the lung, liver, and several lymph nodes. Her bone scan showed Rt iliac crest lesion, for which she had biopsy done here on 08/14/2017. Her biopsy results came back as small cell lung cancer with metastasis. pt was seen by heme onc and who recommend palliative chemo and radio therapy, however pt and family refused for any further treatment options and opted to go home on home hospice care. We consulted palliative care team Dr. fletcher, who evaluated the pt here and arranged for home hospice care. She also happened to have new onset afib, due to resp failure, which is well controlled with Cardizem and metoprolol. For her respiratory failure with hypoxia, she still needs 10 lit O2.. Palliative care team going to arrange all of them. So will d/c her home today under home hospice care. - Time Spent with Patient Total time spent providing and/or coordinating discharge services: - Constitutional Vitals: Temp Pulse Resp BP Pulse Ox 97.5 F L 101 17 133/84 92 08/21/17 07:22 08/21/17 07:22 08/21/17 10:36 08/21/17 07:22 08/21/17 10:36 General appearance: Present: cooperative, mild distress, A&O X 3, underweight, answers questions appropriately - Head Head exam: Present: atraumatic, normal inspection - Respiratory Respiratory exam: Present: decreased breath sounds, respiratory distress (mild) , wheezes. Absent: rales, rhonchi - Cardiovascular Cardiovascular exam: Present: RRR, +S1, +S2. Absent: systolic murmur - GI/Abdominal GI/Abdominal exam: Present: distended, soft. Absent: rebound, rigid, tenderness - Extremities Exam Extremities exam: Absent: calf tenderness, pedal edema, tenderness - Back Exam Back exam: Absent: CVA tenderness (L), CVA tenderness (R) - Neurological Exam Neurological exam: Present: alert, oriented X3 - Psychiatric Psychiatric exam: Present: normal affect, normal mood
--- NOTE | 2017-08-21 11:01 | Physician Discharge Referral ---
Home Health/Hosp Referral Info Transfer to: Home Health Attending Provider: Dr. Purvis Provider in Charge Post Discharge: PCP - Diagnosis (1) Acute respiratory failure with hypoxia Status: Acute (2) Pneumonia Status: Acute (3) Small cell lung cancer Status: Acute (4) Acute exacerbation of chronic obstructive airways disease Status: Acute (5) Metastatic cancer Status: Acute (6) Sacral decubitus ulcer Status: Chronic (7) New onset atrial fibrillation Status: Acute (8) Acute diastolic CHF (congestive heart failure) Status: Acute - Respiratory Orders Smoking Cessation: Smoking cessation has been advised. For more information, call the [place] Tobacco Quit Line at 8-896-ZTOH-NOW. - Transfer Medications Prescriptions: OxyCODONE Immed Rel [Roxicodone 5 MG] 5 mg PO Q6HR PRN #30 tablet PRN Reason: Moderate to Severe Pain (4-10) Morphine Sulfate SR (12 HR) [MS Contin] 15 mg PO Q12HR #30 tablet.er Aspirin Enteric Coated [Aspirin EC] 81 mg PO DAILY #[address] Micki ABREU (24hr) [Cardizem CD] 180 mg PO DAILY #30 cap.er.24h Metoprolol [Lopressor] 25 mg PO BID #60 tablet Polyethylene Glycol 3350 [MiraLAX] 17 gm PO DAILY PRN #20 powd.pack PRN Reason: Constipation Sennosides/Docusate Sodium [Senna Plus] 1 each PO BID PRN #30 tablet PRN Reason: constipation Home Medications: Loratadine [Claritin] 10 mg PO DAILY 08/12/15 [History] Acetaminophen [Tylenol] 650 mg PO Q6HR PRN #20 tablet 08/14/16 [Rx] Aspirin Enteric Coated [Aspirin EC] 81 mg PO DAILY #30 tablet. 08/21/17 [Rx] Diltiazem CD (24hr) [Cardizem CD] 180 mg PO DAILY #30 cap.er.24h 08/21/17 [Rx] Metoprolol [Lopressor] 25 mg PO BID #60 tablet 08/21/17 [Rx] Morphine Sulfate SR (12 HR) [MS Contin] 15 mg PO Q12HR #30 tablet.er 08/21/17 [ Rx] OxyCODONE Immed Rel [Roxicodone 5 MG] 5 mg PO Q6HR PRN #30 tablet 08/21/17 [Rx] Polyethylene Glycol 3350 [MiraLAX] 17 gm PO DAILY PRN #20 powd.pack 08/21/17 [Rx ] Sennosides/Docusate Sodium [Senna Plus] 1 each PO BID PRN #30 tablet 08/21/17 [ Rx] Allergies/Adverse Reactions: 3 Allergy/AdvReac Type Severity Reaction Status Date / Time codeine Allergy See Verified 08/12/17 09:56 Comments Fish Containing Products Allergy Anaphylaxis Verified 08/12/17 09:56 fish derived Allergy Anaphylaxis Verified 08/12/17 09:56 fish oil Allergy Anaphylaxis Verified 08/12/17 09:56 hydrocodone [From Vicodin] Allergy Rash Verified 08/12/17 09:56 shellfish derived Allergy Anaphylaxis Verified 08/12/17 09:56 Certification: Further, I certify that my clinical findings support that this patient is homebound (i.e. absences from home require considerable and taxing effort and are for medical reasons or congregation services or infrequently or short duration when for other reasons) because: Homebound Reason: Patient requires assistance of a person or device to safely leave home Attestation: My signature below is to certify that this patient is under my care and that I, or nurse practitioner, or a physician's assistant to the ceo working with me, has a face-to -face encounter with this patient.
[2017-08-21 11:51] VITALS: BP 136/81
[2017-08-21] MEDS: *HR* OxyCODONE Immed Rel 5 MG TABLET PO PRN (13:13)
--- NOTE | 2017-08-24 14:28 | Event Note ---
Date of Encounter: 08/24/17 Time of Encounter: 14:27 Hospice medical policy specialist certification of terminal illness: Hospice benefit. Start: 08/21/2017 Hospice benefit. In: +90 days Palliative performance scale: 30-40% History: Patient with a history of metastatic mall cell lung cancer for which she does not wish to have any further treatment. She has actively declined with chemotherapy and radiation therapy. She also has chronic obstructive pulmonary disease which requires a high flow oxygen at 10 L/m. She wishes to have comfort care only. And therefore I find that These findings support a life expectancy of 6 months or less. I attest that I have compose the above narrative based on my review of the patient's medical records, and or on my examination of the patient. Chris Purvis M.D. Associate quality engineer medical device. [facility]
== END 2017-08-21 14:09 | disposition hospice, home (50) | DRG 987 ==
LOC: EMEROO 09:46 → 3ANU 14:40 → SUATTDRO 14:40 → 2ANU 15:45
PROVIDERS: ADMIT Internal Medicine; ATTEND Family Medicine
PROC: IRLIVER (2017-08-14 11:15)